=== PATIENT | female | born 1955 | race Caucasian/White ===

== ENCOUNTER 2019-10-01 08:40 | Outpatient (CLI) | payer MEDICAID, SELFPAY ==
--- NOTE | 2019-10-01 08:46 | MM_ITS ---
WS: [id number] SCREENING DIGITAL MAMMOGRAM WITH CAD HISTORY: SCREENING COMPARISON: 07/01/2018 and 02/11/2017 Bilateral CC and MLO views submitted. Computer aided detection analyzed. Breast composition: There are scattered areas of fibroglandular density. No suspicious masses or calc ifications or distortion. MM/[place] [id number] IMPRESSION: BI-RADS: 0-Incomplete: Need additional imaging evaluation FOLLOW UP: Need Additional Imaging Patient indicated there is a palpable abnormality in the upper outer quadrant o f the LEFT breast. Only a screening mammogram has been ordered. Recommend addit ional imaging and possible ultrasound LEFT breast. Palpable mass needs to be fu rther evaluated.
== END 2019-10-01 08:41 | disposition home or self-care (01) ==
LOC: RADSHAW 08:43
PROVIDERS: Family Provider Internal Medicine; PCP Internal Medicine; Visit Provider Internal Medicine
DX: Z12.31 Encounter for screening mammogram for malignant neoplasm of breast (principal)
CPT/HCPCS: 77067

== ENCOUNTER 2019-10-21 09:40 | Outpatient (CLI) | payer MEDICAID, SELFPAY ==
--- NOTE | 2019-10-21 09:45 | US_ITS ---
WS: [id number] ADDITIONAL VIEWS LEFT MAMMOGRAM LEFT BREAST ULTRASOUND HISTORY: ABNORMAL MAMMOGRAM LT BREAST, palpable abnormality upper outer quadrant LEFT breast. COMPARISON: 10/01/2019 screening mammogram LEFT MAMMOGRAM: Spot compression views and true ML. Triangular marker is placed over the upper outer quadrant of the LEFT breast near 1-2 o'clock. This c orresponds to the palpable abnormality that was previously described. No underlying mass or distortio n identified. Ultrasound to follow. LEFT BREAST ULTRASOUND 2-D and color Doppler imaging submitted. Ultrasound directed to the palpable area at 2:00, 3 cm from the nipple. There is a hyperechoic nodule measuring 1.2 x 0.5 x 0.9 cm. There is an additional smaller hyperechoic nodule in the same region m easuring 1.0 x 0.7 x 1.0 cm. No increased vascularity. Ovoid in shape and most consistent with benign lipomas. IMPRESSION: Hyperechoic nodules at 2:00 are very benign in appearance. Probably representing lipomas due to their ultrasound characteristics. Clinically if these are of concern surgical removal or biopsy can be per formed. US/US breast LT limited* [id number] BI-RADS: 2-Benign FOLLOW UP: 1 Year Follow-up
== END 2019-10-21 09:41 | disposition home or self-care (01) ==
LOC: RADSHAW 09:42
PROVIDERS: Family Provider Internal Medicine; PCP Internal Medicine; Visit Provider Internal Medicine
DX: R92.8 Other abnormal and inconclusive findings on diagnostic imaging of breast (principal); N63.21 Unspecified lump in the left breast, upper outer quadrant
CPT/HCPCS: 76642; 77065

== ENCOUNTER 2020-01-20 14:11 | Outpatient (CLI) | payer MEDICAID, SELFPAY ==
--- NOTE | 2020-01-20 14:23 | CT_ITS ---
WS: [id number] CT CHEST WITH INTRAVENOUS CONTRAST HISTORY: COPD, NICOTINE DEPENDENCE, NICOTINE INDUCED DISORDERS TECHNIQUE: Contiguous 5 mm axial imaging performed on the thorax. Coronal and sagittal reformats are submitted. All CT scans at [facility] use at least one of these dose optimization techniq ues: automated exposure control; mA and/or kV adjustment per patient size (includes targeted exams wh ere dose is matched to clinical indication); or iterative reconstruction. CONTRAST: Omnipaque 300; 95 mL IV. DLP: 1016.04 mGycm COMPARISON: 12/12/2016 Lungs and central airway: Noncalcified and well marginated nodule measuring 7.8 mm in the RIGHT upper lobe. This nodule has very slightly increased in size since 2007 obtained. No additional nodules. Mi ld hyperinflation and changes of emphysema. No pneumonia. Pleura: Normal. No pleural effusion. Heart and pericardium: Normal size heart. There is a small pericardial effusion which is similar to t he prior study. Mediastinum and tiffany: No mediastinum or hilar adenopathy. Vessels: Mild atherosclerosis aorta. Pulmonary artery size is normal. Chest wall and lower neck: No soft tissue masses. Upper abdomen: Ill-defined hypodense nodule in the superior RIGHT lobe of the liver liver measures 2. 1 cm. Additional peripherally enhancing hypodensity measuring 2.0 cm in the posterior RIGHT lobe. The se have been present on multiple prior studies and probably hemangiomas. The remaining visualized marily er is normal. The entire liver is not imaged. Prior cholecystectomy. Osseous structures: No destructive process. CT/CT chest w con* [id number] IMPRESSION: 1. Minimal enlargement of the benign-appearing nodule RIGHT upper lobe. 2. Chronic emphysema. 3. No adenopathy. 4. Small pericardial effusion. 5. Hepatic hemangiomas, stable.
[2020-01-20 14:43] LABS: Blood Urea Nitrogen 14 mg/dL (8-23); Glomerular Filtration Rate 72.4 mL/min (90-130)
[2020-01-20] MEDS: iohexol 300 mg/mL 100 mL Btl IV (14:54)
== END 2020-01-20 14:12 | disposition home or self-care (01) ==
LOC: RADWPI 14:13
PROVIDERS: Family Provider Internal Medicine; PCP Internal Medicine; Visit Provider Internal Medicine
DX: J44.9 Chronic obstructive pulmonary disease, unspecified (principal); F17.218 Nicotine dependence, cigarettes, with other nicotine-induced disorders; R91.1 Solitary pulmonary nodule; I31.3 Pericardial effusion (noninflammatory); D18.09 Hemangioma of other sites
CPT/HCPCS: 71260; 82565; 84520; Q9967

== ENCOUNTER 2020-02-11 14:03 | Outpatient (CLI) | payer MEDICAID, SELFPAY ==
--- NOTE | 2020-02-11 14:09 | US_ITS ---
WS: [id number] ULTRASOUND SOFT TISSUES posterior RIGHT occipital region. HISTORY: LYMPHADENOPATHY COMPARISON: None available. TECHNIQUE: 2-D and color Doppler imaging is submitted. Patient directed ultrasound to the palpable nodule over the posterior scalp. There is a hyperechoic n odule in the soft tissue measuring 6mm. No increased vascularity. US/US soft tissue head neck [id number] IMPRESSION: Small scalp lipoma measuring 6 mm corresponds to the palpable abnormality.
== END 2020-02-11 14:04 | disposition home or self-care (01) ==
LOC: RAD 14:06
PROVIDERS: PCP Internal Medicine; Visit Provider Internal Medicine
DX: R59.1 Generalized enlarged lymph nodes (principal); D17.0 Benign lipomatous neoplasm of skin and subcutaneous tissue of head, face and neck
CPT/HCPCS: 76536

== ENCOUNTER 2020-08-15 10:50 | Outpatient (CLI) | payer MEDICAID, SELFPAY ==
--- NOTE | 2020-08-15 10:54 | CT_ITS ---
WS: [id number] CT scan of the chest with IV contrast, additional two-dimensional coronal and sagittal reconstruction was performed. 08/15/2020 Clinical Data: PULMONARY NODULE Comparison: CT chest, 01/20/2020. DLP: 942.[address] scans at [facility] use at least one of these dose optimization techniques: automat ed exposure control; mA and/or kV adjustment per patient size (includes targeted exams where dose is matched to clinical indication); or iterative reconstruction. Findings: The right lung nodule has increased slightly in size to 0.9 cm. It is seen best on axial image 24 of 57. No other nodules are seen. There are no lung masses. No effusions are present. The heart size is normal with no pericardial effusion. The trachea bifurcates normally into the bronchi. The pulmonary arterial system and thoracic aorta demonstrate no abnormalities or dilatations. There is no axillary or significant mediastinal adenopathy. There is a small hiatal hernia. The upper abdomen demonstrates a low density lesion at the dome of the liver but this is not changed in size. The possible hemangioma in the posterior aspect of the right lobe the liver again is seen. CT/CT chest w con* [id number] Impression: 1. Minimal enlargement of probable benign nodule in right upper lobe and recomm end follow-up CT chest in 6 months. 2. No change in probable hemangiomas of right lobe of the liver.
[2020-08-15 11:41] LABS: Blood Urea Nitrogen 11 mg/dL (8-23); Glomerular Filtration Rate 124.6 mL/min (90-130)
[2020-08-15] MEDS: iohexol 300 mg/mL 100 mL Btl IV (11:47)
== END 2020-08-15 10:51 | disposition home or self-care (01) ==
LOC: RADWPI 10:54
PROVIDERS: PCP Internal Medicine; Visit Provider Internal Medicine
DX: R91.1 Solitary pulmonary nodule (principal)
CPT/HCPCS: 71260; 82565; 84520; Q9967

== ENCOUNTER → 2020-09-15 08:35 | Outpatient (BNVA) | payer MEDICAID, SELFPAY | PROVIDERS: PCP Internal Medicine; Visit Provider Internal Medicine | DX: Z11.59 Encounter for screening for other viral diseases (principal) | CPT/HCPCS: 87635 ==

== ENCOUNTER 2020-09-21 09:15 | Outpatient (CLI) | payer MEDICAID, SELFPAY ==
--- NOTE | 2020-09-21 15:00 | PFTS_ITS ---
Date of Study:09/21/20 Date of Dictation: 09/28/20 MECHANICS: Forced vital capacity (FVC) is reduced . Forced expiratory volume in one second (FEV1) is reduced .. FEV1/FVC is Normal . There is significant response to bronchodilators. FLOW VOLUME LOOP: Normal . LUNG VOLUMES: Not measured DIFFUSING CAPACITY FOR CARBON MONOXIDE:not measured . INTERPRETATION: The Spirometry consistent with restrictive pattern with significant response to bronchodilators. Lung volumes were not measured. Please correlate clinically. MTDD
== END 2020-09-21 09:16 | disposition home or self-care (01) ==
PROVIDERS: PCP Internal Medicine; Visit Provider Internal Medicine
DX: J44.9 Chronic obstructive pulmonary disease, unspecified (principal)
CPT/HCPCS: 94060; J7611

== ENCOUNTER → 2020-10-07 13:24 | Outpatient (BNVA) | payer MEDICAID, SELFPAY | PROVIDERS: PCP Internal Medicine; Visit Provider Internal Medicine Critical Care Medicine | DX: J96.11 Chronic respiratory failure with hypoxia (principal); Z20.822 Contact with and (suspected) exposure to COVID-19 | CPT/HCPCS: 87635 ==

== ENCOUNTER 2020-10-11 10:33 | Outpatient (CLI) | payer MEDICAID, SELFPAY ==
--- NOTE | 2020-10-11 14:06 | PFTS_ITS ---
Date of Study:10/11/20 Date of Dictation: MECHANICS: Forced vital capacity (FVC) is reduced. Forced expiratory volume in one second (FEV1) is reduced. FEV1/FVC is normal. FLOW VOLUME LOOP: Narrow with scooping. LUNG VOLUMES: Total lung capacity (TLC) is normal. Residual volume (RV) is increased. DIFFUSING CAPACITY FOR CARBON MONOXIDE: Mild reduced. INTERPRETATION: The pulmonary function tests are consistent with nonspecific ventilatory limitation. The postbronchodilator spirometry is consistent with moderate restriction. However, the total lung capacity is normal. This is likely secondary to combination of obstructive and restrictive ventilatory defect. There is evidence of air trapping. Gas exchange (DLCO) is mildly reduced. MTDD
== END 2020-10-11 10:34 | disposition home or self-care (01) ==
LOC: RT 10:34
PROVIDERS: PCP Internal Medicine; Visit Provider Internal Medicine Critical Care Medicine
DX: R06.02 Shortness of breath (principal)
CPT/HCPCS: 94060; 94618; 94726; 94729; J7611

== ENCOUNTER 2020-10-11 11:45 | Outpatient (CLI) | payer MEDICAID, SELFPAY | END 2020-10-11 11:46 | disposition home or self-care (01) | LOC: SLEEP 10-13 09:30 | PROVIDERS: PCP Internal Medicine; Visit Provider Internal Medicine Critical Care Medicine | DX: R06.02 Shortness of breath (principal) | CPT/HCPCS: 94762 ==

== ENCOUNTER 2020-10-11 12:00 | Outpatient (CLI) | payer MEDICAID, SELFPAY | END 2020-10-11 12:01 | disposition home or self-care (01) | LOC: SLEEP 10-13 09:28 | PROVIDERS: PCP Internal Medicine; Visit Provider Internal Medicine Critical Care Medicine | DX: G47.10 Hypersomnia, unspecified (principal) | CPT/HCPCS: G0399 ==

== ENCOUNTER 2020-12-21 11:07 | Outpatient (CLI) | payer MEDICAID, SELFPAY ==
--- NOTE | 2020-12-21 11:47 | CT_ITS ---
WS: [id number] CT CHEST WITH INTRAVENOUS CONTRAST HISTORY: COUGH, NICOTINE DEPENDENCE, COPD, PULMONARY NODULE TECHNIQUE: Contiguous 5 mm axial imaging performed on the thorax. Coronal and sagittal reformats are submitted. All CT scans at [facility] use at least one of these dose optimization techniq ues: automated exposure control; mA and/or kV adjustment per patient size (includes targeted exams wh ere dose is matched to clinical indication); or iterative reconstruction. CONTRAST: Omnipaque 300; 95 mL IV. DLP: 1011.07 mGycm COMPARISON: 08/15/2020 and 01/20/2020 Lungs and central airway: Hyperexpanded lungs with emphysema. Again noted is the solid well-circumscr ibed nodule in the RIGHT upper lobe measuring 8 mm in short axis diameter. This nodule has been prese nt over multiple prior years dating back to at least 04/04/2015 with mild increase in size since that e xam. No additional mass or pneumonia. Pleura: Normal. No pleural effusion. Heart and pericardium: Normal size heart. Small amount of pericardial thickening or fluid. Similar to prior studies. Mediastinum and tiffany: Substernal LEFT thyroid goiter. No hilar lymph nodes. Vessels: Mild atherosclerosis aorta. There are few coronary artery calcified plaques. Chest wall and lower neck: Substernal LEFT thyroid goiter. Upper abdomen: Cavernous hemangioma again noted in the superior RIGHT lobe of the liver. Additional h emangioma in the posterior RIGHT lobe of the liver. These have been previously described and imaged. No increase in size. Small hiatal hernia. Prior cholecystectomy. No adrenal mass. Splenic granulomata . Osseous structures: No destructive process. CT/CT chest w con* [id number] IMPRESSION: 1. Very slow increase in size of the RIGHT upper lobe pulmonary nodule since 015. Nodule has increased from 5 to 8 mm. Due to long-term stability this is pr obably benign. Very low-grade neoplasm cannot be completely excluded. 2. No adenopathy. 3. Prior cholecystectomy. 4. LEFT substernal goiter. 5. Stable RIGHT hepatic cavernous hemangiomas.
== END 2020-12-21 11:08 | disposition home or self-care (01) ==
LOC: RADWPI 11:11
PROVIDERS: PCP Internal Medicine; Visit Provider Internal Medicine
DX: R05 Cough (principal); F17.218 Nicotine dependence, cigarettes, with other nicotine-induced disorders; J44.9 Chronic obstructive pulmonary disease, unspecified; R91.1 Solitary pulmonary nodule; D18.09 Hemangioma of other sites; Z90.49 Acquired absence of other specified parts of digestive tract
CPT/HCPCS: 71260; Q9967

== ENCOUNTER 2020-12-24 15:35 | Emergency (ER) | payer MEDICAID, SELFPAY ==
[2020-12-24 16:06] VITALS: BP 146/85; PULSE 89; RESP 16; TEMP 36.8; O2SAT 93; BMI 40.2
--- NOTE | 2020-12-24 16:29 | XRR_ITS ---
PROCEDURE INFORMATION: Exam: XR Chest Exam date and time: 12/24/2020 4:38 PM Age: 65 years old Clinical indication: Dyspnea TECHNIQUE: Imaging protocol: XR of the chest. Views: 1 view. COMPARISON: CT chest w con* [id number] 12/21/2020 12:03 PM FINDINGS: Lungs: The lungs are mildly underinflated. Pleural spaces: Unremarkable. No pleural effusion. No pneumothorax. Heart/Mediastinum: Cardiac shadow is at the upper limit of normal for size. Bones/joints: No acute abnormality. XR/XR chest 1V portable [id number] IMPRESSION: No acute findings.
--- NOTE | 2020-12-24 16:29 | ECG_ITS ---
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[id number] Requested By: Mao Johnson Order Number: [id number] Reading MD: NICOLE VO Measurements Intervals Staley Rate: 84 P: 55 MD: 179 QRS: 122 QRSD: 86 T: 64 QT: 375 QTc: 446 Interpretive Statements SINUS RHYTHM PATTERN CONSISTENT WITH PULMONARY DISEASE POSSIBLE RIGHT VENTRICULAR HYPERTROPHY [SOME/ALL OF: PROMINENT R IN V1, LATE TRANSITION, RAD, BETSY, SSS] INTERPRETATION BASED ON A DEFAULT AGE OF 40 YEARS Compared to ECG 03/29/2016 18:05:51 Atrial abnormality now present Electronically Signed On 12-24-2020 19:18:24 CDT by NICOLE VO [id number]
[2020-12-24 16:55] VITALS: BP 127/98; PULSE 82; RESP 14; O2SAT 95
[2020-12-24] MEDS: sodium chloride 0.9% 500 ML 999 ML IV (16:56)
[2020-12-24 17:00] LABS: Basophils # 0.1 10^3/uL (0.0-0.1); Basophils % 0.4 %; Eosinophils # 0.2 10^3/uL (0.0-0.8); Eosinophils % 1.9 %; Hematocrit 45.2 % (37.0-47.0); Hemoglobin 14.4 g/dL (11.5-15.3); Lymphocytes # 3.5 10^3/uL (0.8-4.8); Lymphocytes % 29.6 %; Mean Corpuscular HGB Conc 31.9 g/dL (30.0-36.0); Mean Corpuscular Hemoglobin 28.7 pg (28.0-34.0); Mean Platelet Volume 12.6 fL (7.4-10.4); Monocytes # 0.7 10^3/uL (0.2-0.9); Monocytes % 5.6 %; Neutrophils % 62.2 %; Nucleated Red Blood Cells % 0 %; Platelet Count 120 10^3/cmm (130-400); Red Blood Count 5.02 10^6/uL (4.1-5.3); Red Cell Distribution Width 14.5 % (12.1-15.1); White Blood Count 11.8 10^3/uL (4.0-10.0)
--- NOTE | 2020-12-24 17:04 | W.ED.CHESTPA ---
Documented by User: Mao Underwood DO 12/26/20 10:46 HPI - Chest Pain General: Chief Complaint: Chest Pain Stated Complaint: cp, arm pain Time Seen by Provider: 12/24/20 16:29 History of Present Illness: HPI narrative: 65-year-old female comes in complaining of right hand pain pain radiating down the arm into the fourth and fifth fingers radiates all the way up through the shoulder into the neck. She no history of trauma no history of previous injury or cervical disc disease or previous surgeries. The arm discomfort has been present for years and worsening the chest discomfort is new today. Sudden onset while she was getting groceries. Cannot really get her to identify if there is anything that exacerbates or relieves it she said it just comes and goes is accompanied by some mild shortness of breath. MD complaint: chest heaviness Onset (ago): hour(s) Timing of current episode: episodic Onset: during rest Pain location: left chest Pain radiation: none Quality: heaviness Relieving factors: nothing Exacerbating factors: nothing Associated symptoms: Deny abdominal pain, dyspnea, fever(s), nausea or vomiting Treatment prior to arrival: none Review of Systems Const: Denies: fever(s), chills, body aches, change in appetite, fatigue or malaise ENMT: Denies: throat pain, ear or mastoid pain, nasal discharge or nasal congestion Card: Denies: chest pain, edema, dyspnea on exertion or orthopnea Resp: Denies: dyspnea, productive cough or non-productive cough GI: Denies: abdominal pain, nausea, vomiting, hematemesis, coffee ground emesis, diarrhea, constipation, bloating, hematochezia or melena : Denies: flank pain, difficulty voiding, dysuria, urinary frequency or urinary urgency Skin/Breast: Denies: rash or pruritus PFSH ED PFSH: Medical History Hyperlipidemia Hypothyroidism Tobacco abuse Surgical History S/P cholecystectomy S/P hysterectomy Family History Sister Cancer LUNG Mother , AGE78 Diabetes Other CAD (coronary artery disease) Social History (Reviewed 12/26/20 @ 10:46 by MATTHEW Li Smoking and tobacco status: current every day smoker cigarettes Packs smoked per day: 1.0 Years cigarettes smoked: 30 Quit status (tobacco): considering quitting Second hand smoke exposure: Yes Smoking risk assessment/counseling performed?: Yes Alcohol intake: never Counseling given: No Counseling given: No Lives independently: Yes Household members: family Marital status: / service: No Current occupational status: disabled Pets and animals: Yes History of recent travel: No Current gender identity: Female Physical Exam Const: COMMON NORMALS: no acute distress GENERAL APPEARANCE: cooperative and comfortable ORIENTATION/CONSCIOUSNESS: Yes awake, Yes oriented to person, Yes oriented to place and Yes oriented to time HENMT: COMMON NORMALS: normocephalic, atraumatic, hearing grossly normal bilaterally, external ears normal, EAC's normal, TM's normal bilaterally, Normal nasal mucous membranes and turbinates present, moist oral mucous membranes and oropharynx normal HEAD & SCALP: normocephalic and atraumatic NOSE: Normal nasal mucous membranes and turbinates present EXTERNAL EAR: Yes external ears normal EXTERNAL AUDITORY CANAL: EAC's normal TYMPANIC MEMBRANE: TM's normal bilaterally Eye: COMMON NORMALS: Equal, round and reactive pupils present, EOMs intact bilaterally, conjunctivae normal and no scleral icterus CONJUNCTIVA: Yes conjunctivae normal PUPIL: Yes Equal, round and reactive pupils present Neck/C-Spine: COMMON NORMALS: full ROM, no lymphadenopathy, supple and no JVD Lymph: LYMPHATIC: no lymphadenopathy noted and no lymphedema noted Resp: COMMON NORMALS: normal respiratory effort, No retractions, No use of accessory muscles and clear to auscultation bilaterally AUSCULTATION: clear to auscultation bilaterally Cardio: COMMON NORMALS: no JVD, regular rate, regular rhythm and No murmurs present (Cardio) RATE: regular rate RHYTHM: regular rhythm GI: COMMON NORMALS: Soft to palpation and No hepatosplenomegaly present AUSCULTATION: Yes normoactive bowel sounds PALPATION: Yes Soft to palpation, No Tenderness to palpation present (GI), No Guarding due to palpation present (GI) and Yes No hepatosplenomegaly present Extremity: COMMON NORMALS: normal to inspection, capillary refill normal, no clubbing, cyanosis or edema, no calf tenderness and no pedal edema Neuro: SENSORIUM/ORIENTATION: Yes oriented to person, Yes oriented to place and Yes oriented to time Skin: COMMON NORMALS: no rashes or lesions noted GENERAL SKIN EXAM: no rashes or lesions noted Course Vital Signs: Vital signs: Vital Signs Temperature 98.3 F 12/24/20 16:06 Pulse Rate 69 12/24/20 19:22 Respiratory Rate 18 12/24/20 19:22 Blood Pressure 120/66 12/24/20 19:22 Pulse Oximetry 94 12/24/20 19:22 MDM - Chest Pain MDM Narrative: Medical decision making narrative: Turned over to Dr. De La Paz at change of shift see his note for final diagnosis and disposition Lab Data: Labs: Lab Results 12/24/20 12/24/20 12/24/20 Range/Units 16:30 16:30 16:30 WBC 11.8 H (4.0-10.0) 10^3/ uL RBC 5.02 (4.1-5.3) 10^6/u L Hgb 14.4 (11.5-15.3) g/dL Hct 45.2 (37.0-47.0) % MCV 90.0 (81-99) fL MCH 28.7 (28.0-34.0) pg MCHC 31.9 (30.0-36.0) g/dL RDW 14.5 (12.1-15.1) % Plt Count 120 L (130-400) 10^3/c mm MPV 12.6 H (7.4-10.4) fL Neut % (Auto) 62.2 % Lymph % (Auto) 29.6 % [place] % (Auto) 5.6 % Eos % (Auto) 1.9 % Baso % (Auto) 0.4 % Neut # (Auto) 7.30 (1.8-7.7) 10^3/u L Lymph # (Auto) 3.5 (0.8-4.8) 10^3/u L [place] # (Auto) 0.7 (0.2-0.9) 10^3/u L Eos # (Auto) 0.2 (0.0-0.8) 10^3/u L Baso # (Auto) 0.1 (0.0-0.1) 10^3/u L Nucleated RBC % (a uto) 0 % Nucleated RBCs # 0.0 /100WBC Sodium 141 (136-145) mmol/L Potassium 3.9 (3.5-5.1) mmol/L Chloride 103 (98-107) mmol/L Carbon Dioxide 26 (22-29) mmol/L Anion Gap 15.9 (5-19) BUN 14 (8-23) mg/dL Creatinine 0.7 (0.5-0.9) mg/dL GFR Calculation 84.2 L (90-130) mL/min Glucose 83 (65-115) mg/dL Calculated Osmolal ity 292 (285-295) mOsm/k g Calcium 9.9 (8.5-10.5) mg/dL Total Bilirubin 0.4 (0.15-1.2) mg/dL AST 14 (0-32) U/L ALT 16 (0-33) U/L Alkaline Phosphata se 96 (35-105) IU/L Troponin T Baselin e 6 (0-10) ng/L Troponin T 120 Min [place] (0-10) ng/L Delta Troponin T (0-10) ABS# Total Protein 6.7 (6.6-8.7) g/dL Albumin 4.5 (3.5-5.2) g/dL Globulin 2.2 (1.3-4.6) g/dL 12/24/20 Range/Units 18:02 WBC (4.0-10.0) 10^3/ uL RBC (4.1-5.3) 10^6/u L Hgb (11.5-15.3) g/dL Hct (37.0-47.0) % MCV (81-99) fL MCH (28.0-34.0) pg MCHC (30.0-36.0) g/dL RDW (12.1-15.1) % Plt Count (130-400) 10^3/c mm MPV (7.4-10.4) fL Neut % (Auto) % Lymph % (Auto) % [place] % (Auto) % Eos % (Auto) % Baso % (Auto) % Neut # (Auto) (1.8-7.7) 10^3/u L Lymph # (Auto) (0.8-4.8) 10^3/u L [place] # (Auto) (0.2-0.9) 10^3/u L Eos # (Auto) (0.0-0.8) 10^3/u L Baso # (Auto) (0.0-0.1) 10^3/u L Nucleated RBC % (a uto) % Nucleated RBCs # /100WBC Sodium (136-145) mmol/L Potassium (3.5-5.1) mmol/L Chloride (98-107) mmol/L Carbon Dioxide (22-29) mmol/L Anion Gap (5-19) BUN (8-23) mg/dL Creatinine (0.5-0.9) mg/dL GFR Calculation (90-130) mL/min Glucose (65-115) mg/dL Calculated Osmolal ity (285-295) mOsm/k g Calcium (8.5-10.5) mg/dL Total Bilirubin (0.15-1.2) mg/dL AST (0-32) U/L ALT (0-33) U/L Alkaline Phosphata se (35-105) IU/L Troponin T Baselin e (0-10) ng/L Troponin T 120 Min [place] 6.30 (0-10) ng/L Delta Troponin T 0.30 (0-10) ABS# Total Protein (6.6-8.7) g/dL Albumin (3.5-5.2) g/dL Globulin (1.3-4.6) g/dL Discharge Plan Discharge Patient Disposition: Home Clinical Impression: Radiculitis of right cervical region Chest pain Qualifiers: Chest pain type: unspecified Qualified Code(s): R07.9 - Chest pain, unspecified Condition: Stable Prescriptions: New Medrol (Preston) 4 mg tablets,dose pack See Rx Instructions .ROUTE .COMPLEX Qty: 21 RF: 0 No Action gabapentin 300 mg capsule 300 mg PO TID RF: 0 ergocalciferol (vitamin D2) [Vitamin D2] 1,250 mcg (50,000 unit) capsule 1,250 mcg PO DAILY RF: 0 elderberry fruit 200 mg capsule PO DAILY RF: 0 budesonide-formoterol [Symbicort] 80-4.5 mcg/actuation HFA aerosol inhaler 2 puff inhalation BID RF: 0 Spiriva with HandiHaler 18 mcg capsule, w/inhalation device 1 cap inhalation DAILY RF: 0 albuterol sulfate [ProAir HFA] 90 mcg/actuation HFA aerosol inhaler 2 puff INHALATION Q6H PRNRF: 0 levothyroxine 50 mcg tablet 50 mcg PO DAILY RF: 0 nitroglycerin [Nitrostat] 0.4 mg tablet, sublingual 0.4 mg SUBLINGUAL Q5M PRNRF: 0 aspirin [Aspir-81] 81 mg tablet,delayed release (DR/EC) 81 mg PO DAILY RF: 0 rosuvastatin 10 mg tablet 10 mg PO DAILY RF: 0 bupropion HCl 150 mg tablet sustained-release 12 hr 150 mg PO DAILY RF: 0 mecobalamin (vitamin B12) 5,000 mcg tablet,disintegrating 5,000 mcg PO DAILY RF: 0 omega-3 fatty acids [Fish Oil Concentrate] 1,000 mg capsule 1,000 mg PO DAILY RF: 0 fluticasone propionate [Flonase Allergy Relief] 50 mcg/actuation spray,suspension 1 spray intranasal Q12H 30 Days Qty: 15.8 RF: 3 Discharge Orders: Discharge ED (Routine); Ordered 12/24/20 Ordered By: Salvador De La Paz Referrals: Faby Kumar MD [Primary Care Provider] - 4-7 days Discharge Diet: Advance as tolerated Discharge Activity: Increase activity as tolerated Patient Instructions: Chest Pain (ED), Cervical Radiculopathy (ED) Activity Restrictions/Additional Instructions: Return for worsening chest pain, shortness of breath, syncope or passing out, other concerning symptoms. See your doctor next week, as further outpatient testing may be needed. Medication as directed. Coding Level of Care Code ED Storage Engineer for Chg Fwd Documented by User: Salvador De La Paz DO 12/24/20 22:19 HPI - Chest Pain General: Chief Complaint: Chest Pain Stated Complaint: cp, arm pain Time Seen by Provider: 12/24/20 16:29 PFSH ED PFSH: Medical History Hyperlipidemia Hypothyroidism Tobacco abuse Surgical History S/P cholecystectomy S/P hysterectomy Family History Sister Cancer LUNG Mother , AGE78 Diabetes Other CAD (coronary artery disease) Social History Smoking and tobacco status: current every day smoker cigarettes Packs smoked per day: 1.0 Years cigarettes smoked: 30 Quit status (tobacco): considering quitting Second hand smoke exposure: Yes Smoking risk assessment/counseling performed?: Yes Alcohol intake: never Counseling given: No Counseling given: No Lives independently: Yes Household members: family Marital status: / service: No Current occupational status: disabled Pets and animals: Yes History of recent travel: No Current gender identity: Female Course Vital Signs: Vital signs: Vital Signs Temperature 98.3 F 12/24/20 16:06 Pulse Rate 69 12/24/20 19:22 Respiratory Rate 18 12/24/20 19:22 Blood Pressure 120/66 12/24/20 19:22 Pulse Oximetry 94 12/24/20 19:22 MDM - Chest Pain MDM Narrative: Medical decision making narrative: 65-year-old lady checked out to me at shift change by Dr. Underwood. She has had intermittent chest pain. She is also had pain that radiates to her right fourth and fifth digit and ulnar nerve pattern. She states her wrist is somewhat painful as well as her hand. She denies any significant neck pain, but notes she has had pain in the past. Her EKG showed a sinus rhythm with no acute ST changes. Her troponin did not elevate. Is a mild elevation of her white blood cell count. Other labs are benign. Her hand x-ray is negative. Chest x-ray is negative. She will be treated for cervical radiculitis. She was treated with a GI cocktail which seemed to help her symptoms to some degree as well. Lab Data: Labs: Lab Results 12/24/20 12/24/20 12/24/20 Range/Units 16:30 16:30 16:30 WBC 11.8 H (4.0-10.0) 10^3/ uL RBC 5.02 (4.1-5.3) 10^6/u L Hgb 14.4 (11.5-15.3) g/dL Hct 45.2 (37.0-47.0) % MCV 90.0 (81-99) fL MCH 28.7 (28.0-34.0) pg MCHC 31.9 (30.0-36.0) g/dL RDW 14.5 (12.1-15.1) % Plt Count 120 L (130-400) 10^3/c mm MPV 12.6 H (7.4-10.4) fL Neut % (Auto) 62.2 % Lymph % (Auto) 29.6 % [place] % (Auto) 5.6 % Eos % (Auto) 1.9 % Baso % (Auto) 0.4 % Neut # (Auto) 7.30 (1.8-7.7) 10^3/u L Lymph # (Auto) 3.5 (0.8-4.8) 10^3/u L [place] # (Auto) 0.7 (0.2-0.9) 10^3/u L Eos # (Auto) 0.2 (0.0-0.8) 10^3/u L Baso # (Auto) 0.1 (0.0-0.1) 10^3/u L Nucleated RBC % (a uto) 0 % Nucleated RBCs # 0.0 /100WBC Sodium 141 (136-145) mmol/L Potassium 3.9 (3.5-5.1) mmol/L Chloride 103 (98-107) mmol/L Carbon Dioxide 26 (22-29) mmol/L Anion Gap 15.9 (5-19) BUN 14 (8-23) mg/dL Creatinine 0.7 (0.5-0.9) mg/dL GFR Calculation 84.2 L (90-130) mL/min Glucose 83 (65-115) mg/dL Calculated Osmolal ity 292 (285-295) mOsm/k g Calcium 9.9 (8.5-10.5) mg/dL Total Bilirubin 0.4 (0.15-1.2) mg/dL AST 14 (0-32) U/L ALT 16 (0-33) U/L Alkaline Phosphata se 96 (35-105) IU/L Troponin T Baselin e 6 (0-10) ng/L Troponin T 120 Min [place] (0-10) ng/L Delta Troponin T (0-10) ABS# Total Protein 6.7 (6.6-8.7) g/dL Albumin 4.5 (3.5-5.2) g/dL Globulin 2.2 (1.3-4.6) g/dL 04/ Range/Units 18:02 WBC (4.0-10.0) 10^3/ uL RBC (4.1-5.3) 10^6/u L Hgb (11.5-15.3) g/dL Hct (37.0-47.0) % MCV (81-99) fL MCH (28.0-34.0) pg MCHC (30.0-36.0) g/dL RDW (12.1-15.1) % Plt Count (130-400) 10^3/c mm MPV (7.4-10.4) fL Neut % (Auto) % Lymph % (Auto) % [place] % (Auto) % Eos % (Auto) % Baso % (Auto) % Neut # (Auto) (1.8-7.7) 10^3/u L Lymph # (Auto) (0.8-4.8) 10^3/u L [place] # (Auto) (0.2-0.9) 10^3/u L Eos # (Auto) (0.0-0.8) 10^3/u L Baso # (Auto) (0.0-0.1) 10^3/u L Nucleated RBC % (a uto) % Nucleated RBCs # /100WBC Sodium (136-145) mmol/L Potassium (3.5-5.1) mmol/L Chloride (98-107) mmol/L Carbon Dioxide (22-29) mmol/L Anion Gap (5-19) BUN (8-23) mg/dL Creatinine (0.5-0.9) mg/dL GFR Calculation (90-130) mL/min Glucose (65-115) mg/dL Calculated Osmolal ity (285-295) mOsm/k g Calcium (8.5-10.5) mg/dL Total Bilirubin (0.15-1.2) mg/dL AST (0-32) U/L ALT (0-33) U/L Alkaline Phosphata se (35-105) IU/L Troponin T Baselin e (0-10) ng/L Troponin T 120 Min [place] 6.30 (0-10) ng/L Delta Troponin T 0.30 (0-10) ABS# Total Protein (6.6-8.7) g/dL Albumin (3.5-5.2) g/dL Globulin (1.3-4.6) g/dL Discharge Plan Discharge Patient Disposition: Home Clinical Impression: Radiculitis of right cervical region Chest pain Qualifiers: Chest pain type: unspecified Qualified Code(s): R07.9 - Chest pain, unspecified Condition: Stable Prescriptions: New Medrol ([place]rest[place]) 4 mg tablets,dose pack See Rx Instructions .ROUTE .COMPLEX Qty: 21 RF: 0 No Action gabapentin 300 mg capsule 300 mg PO TID RF: 0 ergocalciferol (vitamin D2) [Vitamin D2] 1,250 mcg (50,000 unit) capsule 1,250 mcg PO DAILY RF: 0 elderberry fruit 200 mg capsule PO DAILY RF: 0 budesonide-formoterol [Symbicort] 80-4.5 mcg/actuation HFA aerosol inhaler 2 puff inhalation BID RF: 0 Spiriva with HandiHaler 18 mcg capsule, w/inhalation device 1 cap inhalation DAILY RF: 0 albuterol sulfate [ProAir HFA] 90 mcg/actuation HFA aerosol inhaler 2 puff INHALATION Q6H PRNRF: 0 levothyroxine 50 mcg tablet 50 mcg PO DAILY RF: 0 nitroglycerin [Nitrostat] 0.4 mg tablet, sublingual 0.4 mg SUBLINGUAL Q5M PRNRF: 0 aspirin [Aspir-81] 81 mg tablet,delayed release (DR/EC) 81 mg PO DAILY RF: 0 rosuvastatin 10 mg tablet 10 mg PO DAILY RF: 0 bupropion HCl 150 mg tablet sustained-release 12 hr 150 mg PO DAILY RF: 0 mecobalamin (vitamin B12) 5,000 mcg tablet,disintegrating 5,000 mcg PO DAILY RF: 0 omega-3 fatty acids [Fish Oil Concentrate] 1,000 mg capsule 1,000 mg PO DAILY RF: 0 fluticasone propionate [Flonase Allergy Relief] 50 mcg/actuation spray,suspension 1 spray intranasal Q12H 30 Days Qty: 15.8 RF: 3 Discharge Orders: Discharge ED (Routine); Ordered 12/24/20 Ordered By: Salvador De La Paz Referrals: Faby Kumar MD [Primary Care Provider] - 4-7 days Discharge Diet: Advance as tolerated Discharge Activity: Increase activity as tolerated Patient Instructions: Chest Pain (ED), Cervical Radiculopathy (ED) Activity Restrictions/Additional Instructions: Return for worsening chest pain, shortness of breath, syncope or passing out, other concerning symptoms. See your doctor next week, as further outpatient testing may be needed. Medication as directed. Coding Level of Care Code ED Storage Engineer for Monik Lopez
--- NOTE | 2020-12-24 17:06 | XRR_ITS ---
PROCEDURE INFORMATION: Exam: XR Right Hand Exam date and time: 12/24/2020 5:23 PM Age: 65 years old Clinical indication: Finger(s); Right; Patient HX: Pain in RT 4th digit TECHNIQUE: Imaging protocol: XR Right hand. Views: 3 or more views. COMPARISON: No relevant prior studies available. FINDINGS: Bones/joints: Normal. Soft tissues: Normal. XR/XR hand RT min 3V* [id number] IMPRESSION: No acute findings.
[2020-12-24 17:22] LABS: Alanine Aminotransferase 16 U/L (0-33); Albumin Level 4.5 g/dL (3.5-5.2); Alkaline Phosphatase 96 IU/L (35-105); Aspartate Amino Transferase 14 U/L (0-32); Blood Urea Nitrogen 14 mg/dL (8-23); Calcium 9.9 mg/dL (8.5-10.5); Carbon Dioxide 26 mmol/L (22-29); Chloride 103 mmol/L (98-107); Globulin 2.2 g/dL (1.3-4.6); Glomerular Filtration Rate 84.2 mL/min (90-130); Glucose 83 mg/dL (65-115); Osmolality Calculated 292 mOsm/kg (285-295); Sodium 141 mmol/L (136-145); Total Bilirubin 0.4 mg/dL (0.15-1.2); Total Protein 6.7 g/dL (6.6-8.7)
[2020-12-24 17:23] LABS: Troponin(5th) Baseline 6 ng/L (0-10)
[2020-12-24 17:28] LABS: Anion Gap 15.9 (5-19)
[2020-12-24 17:29] LABS: Potassium 3.9 mmol/L (3.5-5.1)
[2020-12-24 17:46] VITALS: RESP 16
[2020-12-24] MEDS: morphine 4 mg/mL SDV 1 mL IVP (17:46)
--- NOTE | 2020-12-24 18:29 | ECG_ITS ---
[facility] Test Date: 2020-12-24 Pat Name: Anson Cheney Department: Room: Gender: Female Portable Track Line Marker: : 1955 Requested By: Mao Johnson Order Number: [id number] Reading MD: NICOLE VO Measurements Intervals [place] Rate: 73 P: 56 NH: 193 QRS: 101 QRSD: 87 T: 61 QT: 401 QTc: 444 Interpretive Statements SINUS RHYTHM RIGHT AXIS DEVIATION [QRS AXIS > 100] LOW QRS VOLTAGE IN PRECORDIAL LEADS [QRS DEFLECTION < 1.0 mV IN CHEST LEADS] Compared to ECG 12/24/2020 16:16:39 Right-axis deviation now present Low QRS voltage now present Atrial abnormality no longer present Electronically Signed On 12-24-2020 19:19:24 CDT by NICOLE VO [id number]
[2020-12-24] MEDS: ondansetron 2 mg/ML SDV 2 mL 4 MG IVP (18:43)
[2020-12-24] MEDS: lidocaine 2% viscous 15 ML, aluminum-mag hydrox-simethicon 30 ML, sucralfate oral liq 1 GM PO (18:44)
[2020-12-24 19:04] VITALS: BP 120/65; PULSE 76; RESP 16; O2SAT 93
[2020-12-24 19:22] VITALS: BP 120/66; PULSE 69; RESP 18; O2SAT 94
== END 2020-12-24 19:36 | disposition home or self-care (01) ==
PROVIDERS: Family Medicine; Emergency Provider Emergency Medicine; PCP Internal Medicine
DX: R07.9 Chest pain, unspecified (principal); M54.12 Radiculopathy, cervical region; Z79.82 Long term (current) use of aspirin; E78.5 Hyperlipidemia, unspecified; F17.210 Nicotine dependence, cigarettes, uncomplicated
CPT/HCPCS: 71045; 73130; 80053; 84484; 85025; 93005; 96374; 96375; 99284; J2270; J2405; J7040

== ENCOUNTER → 2021-01-24 09:21 | Outpatient (BNVA) | payer MEDICAID, SELFPAY | PROVIDERS: PCP Internal Medicine; Visit Provider Specialist | DX: R20.9 Unspecified disturbances of skin sensation (principal); G56.03 Carpal tunnel syndrome, bilateral upper limbs; F17.210 Nicotine dependence, cigarettes, uncomplicated | CPT/HCPCS: 95910 ==

== ENCOUNTER 2021-03-01 05:53 | Outpatient (CLI) | payer MEDICAID, SELFPAY ==
[2021-03-01 06:39] VITALS: BMI 41.0
[2021-03-01 06:42] VITALS: BP 134/103; PULSE 84; RESP 22; TEMP 36.7; O2SAT 90
--- NOTE | 2021-03-01 06:51 | PC.NURSE ---
Pt noted to have SP02 lvl of 84 after walking to restroom. Pt osyxgen on room air came back to 89-90%DR Davies notified and Dr Kumar Called and order still given to give infusion. Pt states that she wears 1.5 liters per n.c. only when she sleeps but since being sick she has had to where oxygen all the time. Called pharmacy and they state any increase to to COVID dis qualifies pt for infusion But drs have stated to give infusion.
[2021-03-01 07:36] VITALS: BP 119/47; PULSE 88; RESP 20; O2SAT 95
[2021-03-01 07:59] VITALS: BP 123/81; PULSE 88; RESP 22; O2SAT 90
[2021-03-01 08:33] VITALS: BP 150/72; PULSE 85; RESP 24; TEMP 37.3; O2SAT 90
== END 2021-03-01 05:54 | disposition home or self-care (01) ==
LOC: ER 05:55
PROVIDERS: PCP Internal Medicine; Visit Provider Internal Medicine
DX: U07.1 COVID-19 (principal)

== ENCOUNTER 2021-04-18 08:53 | Outpatient (CLI) | payer MEDICAID, SELFPAY ==
--- NOTE | 2021-04-18 08:58 | XR_ITS ---
WS: [id number] LUMBAR SPINE TECHNIQUE: 3 views of the lumbar spine CLINICAL INFORMATION: PAIN IN LUMBAR SPINE, FALL COMPARISON: None. FINDINGS: Five vay-zae-ogcymne lumbar vertebral bodies. Mild lumbar curve convex right. Osteopenia. Cholecystec velasquez clips. Disc space narrowing worse at L1-L2, L3-4, L5-S1. No compression fractures. Moderate face t arthropathy L4-L5 and L5-S1. Slight anterolisthesis L4 on L5. Slight retrolisthesis L3 on L4. Aorti c calcification. XR/XR lumbar spine 2-3V* [id number] IMPRESSION: 1. Mild lumbar curve. No acute compression. 2. Disc space narrowing worse at L1-L2, L3-4, L5-S1 3. Moderate facet arthropathy L5-S1.
== END 2021-04-18 08:54 | disposition home or self-care (01) ==
PROVIDERS: PCP Internal Medicine; Visit Provider Internal Medicine
DX: M54.5 Low back pain (principal); W19.XXXA Unspecified fall, initial encounter; M47.817 Spondylosis without myelopathy or radiculopathy, lumbosacral region
CPT/HCPCS: 72100

== ENCOUNTER 2021-05-11 12:58 | Outpatient (CLI) | payer MEDICAID, SELFPAY ==
--- NOTE | 2021-05-11 13:05 | XR_ITS ---
WS: [id number] RIGHT KNEE: 3 VIEW(S) TECHNIQUE: AP, oblique(s) and lateral. HISTORY: PAIN IN RIGHT KNEE COMPARISON: 08/16/2015 No fracture or dislocation. There is very subtle cortical irregularity along the weightbearing surface of the lateral femoral con dyle. Probably related to early developing changes of arthritis and loss of cartilage. No joint effusion. No soft tissue abnormality. XR/XR knee RT 3V* [id number] IMPRESSION: Very minimal cortical surface irregularity lateral weightbearing surface femora l condyle.
== END 2021-05-11 12:59 | disposition home or self-care (01) ==
PROVIDERS: PCP Internal Medicine; Visit Provider Internal Medicine
DX: M25.561 Pain in right knee (principal)
CPT/HCPCS: 73562

== ENCOUNTER 2021-06-08 08:32 | Outpatient (CLI) | payer MEDICAID, SELFPAY ==
--- NOTE | 2021-06-08 08:43 | US_ITS ---
WS: [id number] ABDOMINAL ULTRASOUND REASON FOR EXAM: ABD PAIN RUQ TECHNIQUE: Grayscale and Doppler ultrasound examination of the abdomen. FINDINGS: Pancreas: Not visualized Abdominal aorta and IVC: Normal Liver: Liver measures 17.5 cm in length. Moderately echogenic with no focal lesion. Normal portal kristi ous flow Common bile duct 4.3 mm, within normal limits. Left kidney: Left kidney measures 11.9 cm x 6.1 cm x 6.1 cm. No mass, calculus, or hydronephrosis. No rmal blood flow Right kidney: Right kidney measures 12.9 cm x 4.9 cm x 5.8 cm. No mass, calculus, or hydronephrosis. Normal blood flow Spleen: Normal No ascites. US/US abdomen complete* [id number] IMPRESSION: Most common cause of liver findings are fatty infiltration of the liver. No other significant abnormality.
== END 2021-06-08 08:33 | disposition home or self-care (01) ==
LOC: US 08:34
PROVIDERS: PCP Internal Medicine; Visit Provider Internal Medicine
DX: R10.11 Right upper quadrant pain (principal)
CPT/HCPCS: 76700

== ENCOUNTER → 2021-06-29 15:08 | Outpatient (BNVA) | payer MEDICAID, SELFPAY | PROVIDERS: PCP Internal Medicine; Referring Provider Internal Medicine; Visit Provider Orthopaedic Surgery | DX: M54.2 Cervicalgia (principal) | CPT/HCPCS: 72050 ==

== ENCOUNTER 2021-07-24 10:22 | Outpatient (CLI) | payer MEDICAID, SELFPAY ==
--- NOTE | 2021-07-24 | CT_ITS ---
WS: [id number] CT CHEST TECHNIQUE: Contrast enhanced CT of the chest with coronal and sagittal reformatted images. CLINICAL INFORMATION: PULMONARY NODULE COMPARISON: CT 12/21/2020 and 08/15/2020. PET/CT February 13, 2020. Multiple CT chest dating back to 2014 DLP: 1011.[address] scans at [facility] use at least one of these dose optimization techniques: automated e xposure control; mA and/or kV adjustment per patient size (includes targeted exams where dose is matc hed to clinical indication); or iterative reconstruction. FINDINGS: Stable noncalcified right upper lobe pulmonary nodule measuring 8 mm laterally. This is unchanged sin ce January 2020. This is slowly increased in size since 2014. No other suspicious pulmonary parenchymal n ormalities. No acute pulmonary infiltrates. No focal pneumonia or pleural fluid. Stable substernal th yroid goiter. Aortic calcification. Coronary calcification. Hepatomegaly. Diffuse fatty infiltration of the liver. Cholecystectomy clips. Small esophageal hiatal hernia. Splenic granulomas. Partially visualized hemangiomas in the liver unchanged. Tiny pericardial effusion or thickening. No other significant changes compared to previous. CT/CT chest w con* [id number] IMPRESSION: 1. Stable previously described right upper lobe 8 mm pulmonary nodule. This is unchanged since 12/21/2020 and 08/15/2020. Recommend 12 month follow-up. 2. No other significant changes from previous. 3. Tiny pericardial effusion or thickening. 4. Stable hepatic hemangiomas. Prior cholecystectomy. 5. Stable substernal thyroid goiter.
[2021-07-24] MEDS: iohexol 350 mg/mL 100 mL Btl IV (10:57)
== END 2021-07-24 10:23 | disposition home or self-care (01) ==
PROVIDERS: PCP Internal Medicine; Visit Provider Internal Medicine
DX: R91.1 Solitary pulmonary nodule (principal); D18.09 Hemangioma of other sites; Z90.49 Acquired absence of other specified parts of digestive tract
CPT/HCPCS: 71260; Q9967

== ENCOUNTER 2021-08-09 09:23 | Outpatient (CLI) | payer MEDICARE, MEDICAID, SELFPAY ==
--- NOTE | 2021-08-09 09:41 | FL_ITS ---
WS: [id number] UPPER GI WITH AIR AND SMALL BOWEL FOLLOW-THROUGH TECHNICAL: Double contrast upper GI with small bowel follow-through. Thin and thick barium solutions. FLUOROSCOPY TIME: 3.4 minutes CLINICAL INFORMATION: RUQ ABDOMINAL PAIN COMPARISON: None. FINDINGS: Swallowing: Normal. Esophagus: Mild esophageal dysmotility. No high-grade stricture or obstructing mass. Small esophageal hiatal hernia. Gastroesophageal reflux: Mild reflux. Stomach: Normal double contrast stomach. Normal stomach emptying. Duodenum: Normal duodenal C-loop. Other findings: Cholecystectomy. SMALL BOWEL EXAMINATION CLINICAL INFORMATION: RUQ ABDOMINAL PAIN FINDINGS: Initial abdomen radiograph: Normal bowel gas pattern. No abnormal calcification. Contrast material: 50/50 thin barium sulfate suspension. Transit time: 110 Minutes (normal = 30 - 240 minutes) Normal small bowel transit time. No evidence of small bowel stricture, adhesion, or mass. The termina l ileum is normal. FLUOROSCOPY TIME: 3.4 minutes FL/FL upperGI air smallbowel ser* IMPRESSION: 1. Normal small bowel follow-through. No evidence of obstructing small bowel m ass or lesion. No high-grade strictures. 2. Normal small bowel transit time. 3. Normal ileocecal valve 4. Mild esophageal dysmotility with small esophageal hiatal hernia. 5. Mild reflux is visualized in the supine imaging. 6. Normal double contrast stomach and duodenal C-loop.
== END 2021-08-09 09:24 | disposition home or self-care (01) ==
LOC: RAD 09:31
PROVIDERS: PCP Internal Medicine; Visit Provider Nurse Practitioner Family
DX: R10.11 Right upper quadrant pain (principal); K44.9 Diaphragmatic hernia without obstruction or gangrene
CPT/HCPCS: 74246; 74248

== ENCOUNTER 2021-10-22 13:26 | Emergency (ER) | payer MEDICARE, MEDICAID, SELFPAY ==
[2021-10-22 13:38] VITALS: BP 149/80; PULSE 82; RESP 12; TEMP 36.7; O2SAT 94; BMI 38.7
--- NOTE | 2021-10-22 13:54 | W.ED.BACK ---
HPI - Back Pain/Injury General: Chief Complaint: Back Pain/Injury Stated Complaint: back pain Time Seen by Provider: 10/22/21 13:46 Source: patient Mode of arrival: ambulatory Limitations: no limitations History of Present Illness: 66-year-old female presents to the ER today with back pain. Patient reports this has been going on for almost 2 months now. Patient reports this began when she fell trying to get into bed in August. Patient saw her PCP shortly thereafter and was given a steroid and muscle relaxer. Patient reports she felt better after the steroid however the pain has returned and is not improving. Patient is still taking the Robaxin muscle relaxer at this time. She takes Tylenol for pain and does not take any anti-inflammatory. Patient denies any contraindication to ibuprofen or anti-inflammatories. Patient denies any numbness or tingling in her lower legs. Denies any radiating pain. Patient reports her pain is mostly on the right side and located in mid back and low back. Patient denies any loss of bowel or bladder control at this time. Patient rates her pain an 8 out of 10. Onset (ago): month(s) (2) Timing: constant Severity: severe Pain scale (0-10): 8 Similar Symptoms Previously: Yes Quality: aching Location: lumbar spine and thoracic spine Radiation: none Exacerbating factors: movement Relieving factors: none Review of Systems General: Reports: 10 or more systems reviewed and unremarkable except in HPI and below PFSH ED PFSH: Medical History COVID-19 Hyperlipidemia Hypothyroidism Surgical History S/P cholecystectomy S/P hysterectomy Family History Sister Cancer LUNG Mother , AGE78 Diabetes Other CAD (coronary artery disease) Social History Smoking and tobacco status: current every day smoker (1.5 packs) cigarettes Packs smoked per day: 2 Years cigarettes smoked: 46 Quit status (tobacco): considering quitting Second hand smoke exposure: Yes Smoking risk assessment/counseling performed?: Yes Alcohol intake: never Counseling given: No Counseling given: No Lives independently: Yes Household members: family Marital status: / service: No Current occupational status: disabled Pets and animals: Yes History of recent travel: No Current gender identity: Female Physical Exam Const: COMMON NORMALS: average body habitus, patient oriented x3, no limitations, healthy appearing, alert and well nourished Neck/C-Spine: COMMON NORMALS: full ROM and no lymphadenopathy Resp: COMMON NORMALS: normal respiratory effort and No retractions EFFORT & INSPECTION: Yes able to speak in complete sentences Cardio: COMMON NORMALS: regular rate and regular rhythm RATE: regular rate RHYTHM: regular rhythm Back/Pelvis: COMMON NORMALS: thoracic and lumbar spine normal to inspection; negative for thoraco-lumbar ROM normal OTHER: Patient has pain when going from sitting to standing position also with flexion and extension of the waist. Nontender to palpation along the T-spine and L-spine however slightly tender in the paraspinal muscles on the right side. Extremity: COMMON NORMALS: normal to inspection and full ROM Neuro: COMMON NORMALS: patient oriented x3 SENSORIUM/ORIENTATION: Yes alert Psych: COMMON NORMALS: mental status grossly normal Skin: COMMON NORMALS: no rashes or lesions noted GENERAL SKIN EXAM: no rashes or lesions noted Course ED course: Patient presents to the ER today for low back pain x2 months. Patient has not had any imaging at this time but is scheduled for an MRI in October. We will go ahead with x-ray of the T-spine and L-spine today. Vital Signs: Vital signs: Vital Signs Temperature 98.1 F 10/22/21 13:38 Pulse Rate 82 10/22/21 13:38 Respiratory Rate 12 10/22/21 13:38 Blood Pressure 149/80 10/22/21 13:38 Pulse Oximetry 94 10/22/21 13:38 MDM - Back Pain/Injury Medical Decision Making 66-year-old female presents to the ER today for worsening low back pain x2 months. Patient reports this pain started in August when she fell trying to get into bed. Patient was seen by her doctor at that time and started on prednisone and methocarbamol. Patient reports the prednisone did help quite a bit however the pain has since returned. She is scheduled for imaging in October but reports the pain is just not tolerable anymore. Patient denies any neurological deficits. Denies any numbness or tingling. Denies any radiating pain. We went ahead and did x-rays given patient had no prior imaging. X-rays are negative for acute findings. Discussed this with patient. We will again do a Medrol Dosepak and add Mobic. Patient can continue the Robaxin she has at home. Recommended rest, warm, moist heat, and topical muscle rub. Follow-up with PCP in 7 to 10 days if no improvement. Return to the ER with new or worsening symptoms. Patient verbalized understanding and is in agreement with the treatment plan. Labs Radiology Impressions Lumbar Spine X-Ray 10/22/21 14:00 IMPRESSION: No acute findings. Thoracic Spine X-Ray 10/22/21 14:00 IMPRESSION: No acute findings. Discharge Plan Discharge Patient Disposition: Home Clinical Impression: Chronic back pain Condition: Stable Prescriptions: New Medrol ([place]) 4 mg tablets,dose pack See Rx Instructions .ROUTE .COMPLEX Qty: 21 0RF Rx Instructions: orally per package directions Mobic 15 mg tablet 15 mg PO DAILY Qty: 14 0RF No Action ergocalciferol (vitamin D2) [Vitamin D2] 1,250 mcg (50,000 unit) capsule 1,250 mcg PO DAILY 0RF elderberry fruit 200 mg capsule PO DAILY 0RF gabapentin 300 mg capsule 300 mg PO BID 0RF budesonide-formoterol [Symbicort] 80-4.5 mcg/actuation HFA aerosol inhaler 2 puff inhalation BID 0RF Spiriva with HandiHaler 18 mcg capsule, w/inhalation device 1 cap inhalation DAILY 0RF Rx Instructions: puncture 1 cap using device; one dose = 2 inhalations albuterol sulfate [ProAir HFA] 90 mcg/actuation HFA aerosol inhaler 2 puff INHALATION Q6H PRN0RF levothyroxine 50 mcg tablet 50 mcg PO DAILY 0RF aspirin [Aspir-81] 81 mg tablet,delayed release (DR/EC) 81 mg PO DAILY 0RF ipratropium-albuterol 0.5 mg-3 mg(2.5 mg base)/3 mL solution for nebulization 3 ml inhalation QID PRN0RF baclofen 20 mg tablet 20 mg PO DAILY 0RF levofloxacin 500 mg tablet 500 mg PO DAILY 0RF lactulose 10 gram/15 mL (15 mL) solution 15 ml PO BID 7 Days Qty: 210 0RF Discharge Orders: Discharge ED (Routine); Ordered 10/22/21 Ordered By: Katrina Arreola Referrals: Faby Kumar MD [Primary Care Provider] - Discharge Diet: Usual diet Discharge Activity: Increase activity as tolerated Patient Instructions: Acute Low Back Pain (ED), Opioid Safety Activity Restrictions/Additional Instructions: Take Medrol Dosepak and Mobic as prescribed. Continue methocarbamol at home. Warm, moist heat recommended. Topical muscle rub recommended but do not use with heat or ice. Follow-up with PCP in 10 to 14 days if no improvement. Return to the ER with new or worsening symptoms. Coding Level of Care Code ED Mysql Database Administrator for Chg Fwd Exam Comprehensive
--- NOTE | 2021-10-22 14:00 | XRR_ITS ---
PROCEDURE INFORMATION: Exam: XR Lumbosacral Spine Exam date and time: 10/22/2021 2:00 PM Age: 66 years old Clinical indication: Low back pain; Patient HX: No surgeries on spine; Additional info: Fall with back pain TECHNIQUE: Imaging protocol: XR of the lumbosacral spine. Views: 2 or 3 views. COMPARISON: CR XR lumbar spine 2-3V* [id number] 04/18/2021 9:05 AM FINDINGS: Bones/joints: No acute fracture. Normal alignment. Soft tissues: Unremarkable. XR/XR lumbar spine 2-3V* [id number] IMPRESSION: No acute findings.
--- NOTE | 2021-10-22 14:00 | XRR_ITS ---
PROCEDURE INFORMATION: Exam: XR Thoracic Spine Exam date and time: 10/22/2021 2:00 PM Age: 66 years old Clinical indication: Pain in thoracic spine; Patient HX: No surgeries on spine; Additional info: Fall with back pain TECHNIQUE: Imaging protocol: XR of the thoracic spine. Views: 3 views. COMPARISON: CT chest w con* [id number] 07/24/2021 10:43 AM FINDINGS: Bones/joints: No acute fracture. Normal alignment. Soft tissues: Unremarkable. XR/XR thoracic spine 3V* [id number] IMPRESSION: No acute findings.
[2021-10-22 15:25] VITALS: BP 128/75; PULSE 70; RESP 16; O2SAT 93
== END 2021-10-22 15:26 | disposition home or self-care (01) ==
PROVIDERS: Emergency Provider Physician Assistant; PCP Internal Medicine
DX: G89.29 Other chronic pain (principal); M54.9 Dorsalgia, unspecified; Z79.82 Long term (current) use of aspirin; E78.5 Hyperlipidemia, unspecified; F17.210 Nicotine dependence, cigarettes, uncomplicated
CPT/HCPCS: 72072; 72100; 99282

== ENCOUNTER → 2021-11-23 10:08 | Outpatient (BNVA) | payer MEDICARE, MEDICAID, SELFPAY | PROVIDERS: PCP Internal Medicine; Referring Provider Internal Medicine; Visit Provider Orthopaedic Surgery | DX: M47.897 Other spondylosis, lumbosacral region (principal); M47.896 Other spondylosis, lumbar region; M54.50 Low back pain, unspecified | CPT/HCPCS: 72110 ==

== ENCOUNTER 2021-12-11 12:38 | Day surgery (SDC) | payer MEDICARE, MEDICAID, SELFPAY ==
[2021-12-07 10:26] VITALS: BMI 38.0
--- NOTE | 2021-12-07 11:28 | ECG_ITS ---
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 Measurements Intervals [place] Rate: 80 P: 43 MT: 157 QRS: 126 QRSD: 83 T: 41 QT: 373 QTc: 433 Interpretive Statements SINUS RHYTHM INDETERMINATE AXIS PATTERN CONSISTENT WITH PULMONARY DISEASE Compared to ECG 12/24/2020 18:18:11 Indeterminate axis now present Right-axis deviation no longer present Electronically Signed On 12-07-2021 16:16:17 CDT by Fausto Valentin M.D. [id number]
--- NOTE | 2021-12-07 17:33 | ANES.PREANE2 ---
Pre-Anesthetic Assessment Height/Weight: Height 1.7 m Weight 110.223 kg Preop Diagnosis: Lumbar stenosis Operation Date: 12/11/21 13:55 Proposed Procedures p Discectomy right side l3.4 39182/m48.062(Right) - Jl Eastman DO Familial anesthetic complications: MPme Was Beta Candy taken within 24 hours: N/A Was Clonidine taken within 24 hours: N/A Social Tobacco (Committed smoker with no interest in permanent cessation. States I will quit when I . ) Pulmonary Chronic Obstructive Pulmonary Disease (Bronchitis ), Sleep Apnea (Uses home O2 ) and Shortness of Breath Hx of chronic respiratory failure CV/HEM METS < 4 EKG 12/07/21 ? Interpretive Statements SINUS RHYTHM INDETERMINATE AXIS PATTERN CONSISTENT WITH PULMONARY DISEASE Compared to ECG 12/24/2020 18:18:11 Indeterminate axis now present Right-axis deviation no longer present Electronically Signed On 12-07-2021 16:16:17 CDT by Fausto Valentin M.D. [id number] None reported Hepatic None reported GI Gastroesophageal Reflux Disease Metabolic Thyroid Disease [facility] [place] Lower Back Pain Lumbar stenosis Cervical spondylosis Neuropsych Neuropathy (B/L carpal tunnel syndrome ) Anesthetic Plan ASA status: 3 (66 year old female with hx of chronic respiratory failure, COPD, RAPHAEL, lumbar stenosis, and neuropathy. ) Anesthesia: Anesthesia Evaluation and General Other: We discussed risk and benefits of general anesthesia including PONV, sore throat (sometimes severe), corneal abrasion, positioning and peripheral nerve injuries, life threatening allergic reaction, post operative ICU admission requiring prolonged intubation, stroke, heart attack, , and rare incidences of recall. Patient consents to proceed with general anesthesia. Risk of > 500 ml blood loss (7ml/kg in children): No Medications/Allergies Home Medications Medication Instructions Recorded Confirmed Last Taken Type albuterol sulfate 90 mcg/actuation 2 puff INHALATION Q6H PRN 02/04/20 12/07/21 Unknown History aerosol inhaler (ProAir HFA) aspirin 81 mg tablet,delayed 81 mg PO DAILY 02/04/20 12/07/21 12/06/21 History release (Aspir-) levothyroxine 50 mcg tablet 50 mcg PO DAILY 02/04/20 12/07/21 Unknown History ergocalciferol (vitamin D2) 1,250 1,250 mcg PO DAILY 02/15/20 12/07/21 Unknown History mcg (50,000 unit) capsule (Vitamin D2) budesonide-formoterol HFA 80 2 puff INHALATION BID 12/26/20 12/07/21 Unknown History mcg-4.5 mcg/actuation aerosol inhaler (Symbicort) gabapentin 300 mg capsule 300 mg PO BID cap 01/24/21 12/07/21 Unknown History ipratropium 0.5 mg-albuterol 3 mg 3 ml INHALATION QID PRN 05/02/21 12/07/21 Unknown History (2.5 mg base)/3 mL nebulization soln tramadol 50 mg tablet 50 mg PO Q6H PRN 7 Days #30 tab 11/23/21 12/07/21 Unknown Rx Allergies Allergy/AdvReac Type Severity Reaction Status Date / Time Penicillins Allergy Unknown Unknown Verified 12/07/21 10:21 Sulfa (Sulfonamide Allergy Unknown Unknown Verified 12/07/21 10:21 Antibiotics) PFSH Anesthesia Medical History COVID-19 Hyperlipidemia Hypothyroidism Surgical History S/P cholecystectomy S/P hysterectomy Family History Sister Cancer LUNG Mother , AGE78 Diabetes Other CAD (coronary artery disease) Social History Smoking and tobacco status: current every day smoker (1.5 packs) cigarettes Packs smoked per day: 2 Years cigarettes smoked: 46 Quit status (tobacco): considering quitting Second hand smoke exposure: Yes Smoking risk assessment/counseling performed?: Yes Alcohol intake: never Counseling given: No Counseling given: No Lives independently: Yes Household members: family Marital status: / service: No Current occupational status: disabled Pets and animals: Yes History of recent travel: No Current gender identity: Female Data Anesthesia Cardiac Studies: No Data to Display
[2021-12-11] VITALS (12 sets, daily range): BP systolic 140–188; BP diastolic 82–100; PULSE 82–93; RESP 14–20; TEMP 36.1–36.8; O2SAT 92–98
--- NOTE | 2021-12-11 | SCC_ITS ---
Procedure done: 1. Right L3/4 laminectomy with partial facetectomy and discectomy 11.2 seconds of fluoroscopic guidance, for a cumulative dose of 11.74 mGy, was provided to Dr. Eastman by the radiology department. C-arm images of the lumbar spine were saved for the patient's permanent record. [facility]
--- NOTE | 2021-12-11 | XR_ITS ---
WS: [id number] Lumbar spine, C-arm fluoroscopy, 12/11/2021. Clinical Data: spinal stenosis Comparison: None. Findings: Dr. Eastman performed a posterior lumbar decompression. XR/XR lumbar spine 2-3V* [id number] Impression: Lumbar decompression.
[2021-12-11] MEDS: sodium chloride 0.9% 1,000 ML 30 ML IV (13:31)
--- NOTE | 2021-12-11 13:36 | W.PM.OPSUD ---
Surgery/Procedure H&P Update DATE OF PROCEDURE: December 11, 2021 DATE H&P PERFORMED: 11/23/21 H&P UPDATE INFORMATION: I have reviewed H&P completed within last 30 days, I have examined patient prior to procedure and No changes to prior documentation PREOP DIAGNOSIS: Lumbar radiculopathy L3-4 PLANNED PROCEDURE: Operation Date: 12/11/21 13:55 Proposed Procedures p Discectomy right side l3.4 90642/m48.062(Right) - Jl Eastman DO
[2021-12-11] MEDS: HYDROmorphone 1 mg/mL INJ 1 mL 0.5 MG IVP (13:50)
--- NOTE | 2021-12-11 14:04 | P.ANESUD_ITS ---
Pre-Anesthetic Update Pre-Anesthetic Assessment: Date of Surgery/Procedure: 12/11/21 Preop Fabiana gnosis: Lumbar radiculopathy L3-4 Proposed Procedure: Operation Date: 12/11/21 13:55 Proposed Procedures p Discectomy right side l3.4 25488/m48.062(Right) - Jl Eastman, DO Any changes to Pre-Anesthetic Assessment?: No Last Intake: Intake Last Liquid Date 12/11/21 Last Liquid Time 09:00 Last Solid Date 12/10/21 Last Solid Time 21:00 Vitals: Oxygen Delivery Me thod 12/11/21 13:18 Exam: Pre-Anes Outpt Exam: alert, oriented x 3, clear to auscultation bilaterally and regular rate & rhythm Cardiac Studies: No Data to Display
[2021-12-11] MEDS: clindamycin 900 MG/50 ML PREMIX 100 MG IV (14:09)
--- NOTE | 2021-12-11 15:39 | PM.OP ---
Operative Report Date of procedure: December 11, 2021 Pre-op diagnosis: Preop Diagnosis Lumbar radiculopathy L3-4 Post-op diagnosis: same Procedure done: 1. Right L3/4 laminectomy with partial facetectomy and discectomy Surgeon: Jl Eastman Scientific Diver: Shawn Diaz Estimated blood loss (mL): 15 Procedure: 1. Right L3/4 laminectomy with partial facetectomy and discectomy Patient is brought to the operative suite. After undergoing anesthesia they are placed in the prone position. All areas of impingement are well padded. Patient is then prepped and draped in the normal sterile fashion. A skin incision is made over the L3/4 level. This is confirmed under c-arm guidance. A series of dilators are passed and the tubular retractor is docked on the L3 lamina. A bovie is used to clear the soft tissue off the lamina and the L 3/4 facet joint. A high speed karlo is then used to perform the laminectomy and take down the medial aspect of the L 3/4 facet joint. A kerrison rongeure was then used to take down the remaining lamina and smooth the edge of the laminectomy up to the point where the ligamentum flavum attaches. Attention was then brought to the medial aspect of the facet joint. The remaining medial aspect of the superior and inferior aspect of the facet joint were taken down with the kerrison from the pedicle of L3 to L 4. The facet joint had significant hypertrophy. Attention was then brought to the Ligamentum Flavum. The ligament was taken down from the lamina of L3 to L4 and out medially to the remaining facet joint. The ligament was thick. The dura was then exposed. The dura was in good repair. The L3 nerve was then traced with a curette out the L3/4 foramen and found to be adequately decompressed. The L4 nerve was traced with a curette around the L4 pedicle. The lateral recess was opened with a kerrison helping to further decompress the L4 nerve. Wound is then irrigated copiously with saline and surgiflo is used to stop any bleeding. The tubular retractor is removed and the wound is closed with vicryl and monocryl suture. Glue is then used to protect the wound. A sterile dressing is then placed. Patient was then placed in the supine position and transferred to the PACU in stable condition.
[2021-12-11] MEDS: ipratropium 0.5 mg/2.5 mL Neb INHALATION (16:09)
[2021-12-11] MEDS: ondansetron 2 mg/ML SDV 2 mL 4 MG IVP (16:33)
== END 2021-12-11 17:25 | disposition home or self-care (01) ==
PROVIDERS: PCP Internal Medicine; Visit Provider Orthopaedic Surgery
PROC: (CPT 63047; principal; 2021-12-11 13:55)
DX: M48.062 Spinal stenosis, lumbar region with neurogenic claudication (principal); J44.9 Chronic obstructive pulmonary disease, unspecified; Z99.81 Dependence on supplemental oxygen; K21.9 Gastro-esophageal reflux disease without esophagitis; G47.33 Obstructive sleep apnea (adult) (pediatric); E78.5 Hyperlipidemia, unspecified; E03.9 Hypothyroidism, unspecified
CPT/HCPCS: 63047; 72100; 76000; 93005; J1100; J1170; J2405; J2704; J2710; J3490; J7030; J7611; J7644

== ENCOUNTER 2021-12-14 12:26 | Emergency (ER) | payer MEDICARE, MEDICAID, SELFPAY ==
[2021-12-14 13:10] VITALS: BP 149/88; PULSE 89; RESP 17; TEMP 36.8; O2SAT 93; BMI 38.0
--- NOTE | 2021-12-14 15:01 | ED_ITS ---
HPI - Back Pain/Injury General: Chief Complaint: Back Pain/Injury Stated Complaint: lower body pain Time Seen by Provider: 12/14/21 15:01 Source: patient Mode of arrival: ambulatory History of Present Illness: 66-year-old female presents emergency room complaining of low back pain. Postop day #3 lumbar discectomy and partial fac etectomy. She is complaining of severe pain to her lower extremities with some radiation to the upper legs bilaterally. No loss of bowel or bladder control no drainage from the incision. No saddle paresthesias. Pain is just not adequately controlled at this point. She had called Dr. Eastman's office but states she had not heard back from them. MD elicited complaint: back pain Pertinent past history: back surgery Onset (ago): hour(s) Timing: constant Severity: moderate Similar Symptoms Previously: Yes Quality: sharp Location: lumbar spine Radiation: left upper leg and right upper leg Exacerbating factors: sitting upright and walking Relieving factors: supine Context: other (Recent surgery) Associated symptoms: Reports difficulty walking; Deny abdominal pain, arthralgias, chills, change in bowel habits, dysuria, fatigue, fecal incontinence, fever(s), hematuria, myalgias, nausea, numbness, syncope, tingling/numbness/burning, urinary frequency, urinary urgency, vomiting or weakness Review of Systems Const: Denies: fever(s), chills or fatigue ENMT: Denies: throat pain, ear or mastoid pain, nasal discharge or nasal conge stion Card: Denies: syncope Resp: Denies: dyspnea, productive cough or non-productive cough GI: Denies: abdominal pain, nausea, vomiting, fecal incontinence or change in bowel habits : Denies: flank pain, difficulty voiding, dysuria, urinary frequency, urinary urgency or hematuria Skin/Breast: Denies: rash or pruritus Neuro: Reports: difficulty walking PFS ED PFSH: Medical History COVID-19 Hyperlipidemia Hypothyroidism Surgical History S/P cholecystectomy S/P hysterectomy Family History Sister Cancer LUNG Mother , [id number] Diabetes Other CAD (coronary artery disease) Social History Smoking and tobacco status: current every day smoker (1.5 packs) cigarettes Packs smoked per day: 2 Years cigarettes smoked: 46 Quit status (tobacco): considering quitting Second hand smoke exposure: Yes Smoking risk assessment/counseling performed?: Yes Alcohol intake: never Counseling given: No Counseling given: No Lives independently: Yes Household members: family Marital status: / service: No Current occupational status: disabled Pets and animals: Yes History of recent travel: No Current gender identity: Female Physical Exam Const: COMMON NORMALS: no acute distress GENERAL APPEARANCE: cooperative and comfortable ORIENTATION/CONSCIOUSNESS: Yes awake, Yes oriented to person, Yes oriented to place and Yes oriented to time HENMT: COMMON NORMALS: normocephalic, atraumatic and hearing grossly normal bilaterally HEAD & SCALP: normocephalic and atraumatic Neck/C-Spine: COMMON NORMALS: no JVD Resp: COMMON NORMALS: normal respiratory effort, No retractions, No use of accessory muscles and clear to auscultation bilaterally AUSCULTATION: clear to auscultation bilaterally Cardio: COMMON NORMALS: no JVD, regular rate, regular rhythm and No murmurs present (Cardio) RATE: regular rate RHYTHM: regular rhythm Extremity: COMMON NORMALS: normal to inspection, capillary refill normal, no clubbing, cyanosis or edema, no calf tenderness and no pedal edema Neuro: SENSORIUM/ORIENTATION: Yes oriented to person, Yes oriented to place and Yes oriented to time SENSORY EXAM: No sensory level loss detected MOTOR EXAM: 5/5 motor strength present throughout DEEP TENDON REFLEXES: Right patellar reflex intensity grade: 2+ and Left patellar reflex intensity grade: 2+ OTHER: Straight leg raising test negative bilaterally dorsum plantar flex strength 5 of 5 neurovascular intact in lower extremities Skin: COMMON NORMALS: no rashes or lesions noted GENERAL SKIN EXAM: no rashes or lesions noted Course Vital Signs: Vital signs: Vital Signs Temperature 98.2 F 12/14/21 15:13 Pulse Rate 89 12/14/21 15:13 Respiratory Rate 16 12/14/21 15:55 Blood Pressure 149/88 12/14/21 15:13 Pulse Oximetry 93 12/14/21 15:13 MDM - Back Pain/Injury Medical Decision Making During the course of reviewing her pain medications found that Dr. Eastman's office had actually responded to the patient's request for improved pain control and called in oxycodone to the pharmacy. We verified with both the office and with the pharmacy at [facility] that the prescription was called in. Advised the patient they already had a stronger pain medication called in. In addition to that we will add some prednisone taper. Discussed Dr. michaels and he agreed with cata cole and asked him to follow-up early next week in his office. Medical Records I reviewed the patient's medical records. Labs I reviewed the patient's lab results. : 12/14/21 15:31 12/14/21 15: Laboratory Results WBC 11.9 10^3/uL (4.0-10.0) H 12/14/21 15: RBC 4.83 10^6/uL (4.1-5.3) 12/14/21 15: Hgb 14.0 g/dL (11.5-15.3) 12/14/21 15: Hct 43.1 % (37.0-47.0) 12/14/21 15: MCV 89.2 fl (81-99) 12/14/21 15: MCH 29.0 pg (28.0-34.0) 12/14/21 15: MCHC 32.5 g/dL (30.0-36.0) 12/14/21 15: RDW 14.6 % (12.1-15.1) 12/14/21 15: Plt Count 124 10^3/cmm (130-400) L 12/14/21: MPV 12.2 fL (7.4-10.4) H 12/14/21 15: Neut % (Auto) 68.3 % 12/14/21 15: Lymph % (Auto) 23.1 % 12/14/21 15: [place] % (Auto) 5.7 % 12/14/21 15: Eos % (Auto) 1.9 % 12/14/21 15: Baso % (Auto) 0.6 % 12/14/21 15: Neut # (Auto) 8.15 10^3/uL (1.8-7.7) H 12/14/21 15:31 Lymph # (Auto) 2.8 10^3/uL (0.8-4.8) 12/14/21 15:31 [place] # (Auto) 0.7 10^3/uL (0.2-0.9) 12/14/21 15:31 Eos # (Auto) 0.2 10^3/uL (0.0-0.8) 12/14/21 15:31 Baso # (Auto) 0.1 10^3/uL (0.0-0.1) 12/14/21 15:31 Nucleated RBC % (auto) 0 % 12/14/21 15:31 Nucleated RBCs # 0.0 /100WBC 12/14/21 15:31 Sodium 135 mmol/L (136-145) L 12/14/21 15:31 Potassium 4.1 mmol/L (3.5-5.1) 12/14/21 15:31 Chloride 97 mmol/L (98-107) L 12/14/21 15:31 Carbon Dioxide 28 mmol/L (22-29) 12/14/21 15:31 Anion Gap 14.1 (5-19) 12/14/21 15:31 BUN 12 mg/dL (8-23) 12/14/21 15:31 Creatinine 0.5 mg/dL (0.5-0.9) 12/14/21 15:31 GFR Calculation 123.8 mL/min (90-130) 12/14/21 15:31 Glucose 104 mg/dL (65-115) 12/14/21 15:31 Calculated Osmolality 280 mOsm/kg (285-295) L 12/14/21 15:31 Calcium 11.2 mg/dL (8.5-10.5) H 12/14/21 15:31 Total Bilirubin 0.4 mg/dL (0.15-1.2) 12/14/21 15:31 AST 23 U/L (0-32) 12/14/21 15:31 ALT 29 U/L (0-33) 12/14/21 15:31 Alkaline Phosphatase 184 IU/L (35-105) H 12/14/21 15:31 Total Protein 7.3 g/dL (6.6-8.7) 12/14/21 15:31 Albumin 4.4 g/dL (3.5-5.2) 12/14/21 15:31 Globulin 2.9 g/dL (1.3-4.6) 12/14/21 15:31 Urine Color Yellow (Yellow) 12/14/21 15:19 Urine Appearance Cloudy (CLEAR) 12/14/21 15:19 Urine pH 5 (5-7) 12/14/21 15:19 Ur Specific [place] 1.015 (1.005-1.030) 12/14/21 15:19 Urine Protein Neg (Negative) 12/14/21 15:19 Urine Glucose (UA) Norm (Normal) 12/14/21 15:19 Urine Ketones Negative (Negative) 12/14/21 15:19 Urine Blood 2+ (Negative) H 12/14/21 15:19 Urine Nitrate Negative (Negative) 12/14/21 15:19 Urine Bilirubin Neg (Negative) 12/14/21 15:19 Urine Urobilinogen Norm mg/dL (Negative) 12/14/21 15:19 Ur Leukocyte Esterase 2+ (Negative) H 12/14/21 15:19 Urine RBC 0-4 /hpf (0-2) H 12/14/21 15:19 Urine WBC 25-40 /hpf (0-5) H 12/14/21 15:19 Ur Squamous Epith Cells 5-10 /hpf (0-5) H 12/14/21 15:19 Ur Transition Epith Cell None /hpf 12/14/21 15:19 Ur Renal Epithelial Cell N /hpf 12/14/21 15:19 Amorphous Sediment Not Reportable 12/14/21 15:19 Urine Bacteria 2+ /hpf (NONE) H 12/14/21 15:19 Urine Mucus N /hpf 12/14/21 15:19 Discharge Plan Discharge Patient Disposition: Home Clinical Impression: Post laminectomy syndrome Condition: Stable Prescriptions: New prednisone 20 mg tablet 20 mg PO TID Qty: 15 0RF Rx Instructions: 1 p.o. 3 times daily x3 days, 1 p.o. twice daily x2 days, 1 p.o. daily x2 days tizanidine 4 mg capsule 4 mg PO Q8H PRN (Reason: muscle spasticity) Qty: 20 0RF Discontinued tramadol 50 mg tablet 50 mg PO Q6H PRN (Reason: pain) 7 Days Qty: 30 0RF methocarbamol 500 mg tablet 500 mg PO 0RF hydrocodone-acetaminophen 5-325 mg tablet 1 - 2 tab PO .Q4-6H Qty: 40 0RF No Action ergocalciferol (vitamin D2) [Vitamin D2] 1,250 mcg (50,000 unit) capsule 1,250 mcg PO DAILY 0RF gabapentin 300 mg capsule 300 mg PO BID 0RF budesonide-formoterol [Symbicort] 80-4.5 mcg/actuation HFA aerosol inhaler 2 puff inhalation BID 0RF albuterol sulfate [ProAir HFA] 90 mcg/actuation HFA aerosol inhaler 2 puff INHALATION Q6H PRN (Reason: sob) 0RF levothyroxine 50 mcg tablet 50 mcg PO DAILY 0RF aspirin [Aspir-81] 81 mg tablet,delayed release (DR/EC) 81 mg PO DAILY 0RF ipratropium-albuterol 0.5 mg-3 mg(2.5 mg base)/3 mL solution for nebulization 3 ml inhalation QID PRN (Reason: sob) 0RF oxycodone 5 mg tablet 5 - 10 mg PO Q4H PRN (Reason: pain) 7 Days Qty: 40 0RF rosuvastatin 10 mg tablet 10 mg PO 0RF Spiriva with HandiHaler 18 mcg capsule, w/inhalation device 18 mcg INHALATION 0RF Discharge Orders: Discharge ED (Routine); Ordered 12/14/21 Ordered By: Mao Underwodo Referrals: Faby Kumar MD [Primary Care Provider] - Discharge Diet: Usual diet Discharge Activity: Limit activity as instructed Patient Instructions: Opioid Safety Activity Restrictions/Additional Instructions: Use the oxycodone Dr. Jordan sent to the pharmacy in place of your hydrocodone. You can also use the muscle relaxer we prescribed today instead of m ethocarbamol. Follow-up with Dr. Jordan as previously scheduled. Coding Level of Care Code ED Assistant Kitchen Manager for Chg Fwd Exam Comprehensive
[2021-12-14 15:13] VITALS: BP 149/88; PULSE 89; RESP 17; TEMP 36.8; O2SAT 93
[2021-12-14 15:46] LABS: Basophils # 0.1 10^3/uL (0.0-0.1); Basophils % 0.6 %; Eosinophils # 0.2 10^3/uL (0.0-0.8); Eosinophils % 1.9 %; Hematocrit 43.1 % (37.0-47.0); Lymphocytes # 2.8 10^3/uL (0.8-4.8); Lymphocytes % 23.1 %; Mean Corpuscular HGB Conc 32.5 g/dL (30.0-36.0); Mean Corpuscular Volume 89.2 fl (81-99); Mean Platelet Volume 12.2 fL (7.4-10.4); Monocytes # 0.7 10^3/uL (0.2-0.9); Monocytes % 5.7 %; Neutrophils # 8.15 10^3/uL (1.8-7.7); Neutrophils % 68.3 %; Nucleated Red Blood Cells % 0 %; Platelet Count 124 10^3/cmm (130-400); Red Blood Count 4.83 10^6/uL (4.1-5.3); Red Cell Distribution Width 14.6 % (12.1-15.1); White Blood Count 11.9 10^3/uL (4.0-10.0)
[2021-12-14] MEDS: ondansetron 2 mg/ML SDV 2 mL 4 MG IVP (15:47)
[2021-12-14] MEDS: orphenadrine 30 mg/mL Inj 2 mL 60 MG IVP (15:49)
[2021-12-14] MEDS: dexamethasone 10 mg/mL INJ IVP (15:50)
[2021-12-14 15:55] VITALS: RESP 16
[2021-12-14] MEDS: morphine 4 mg/mL SDV 1 mL 6 MG IVP (15:55)
[2021-12-14 16:09] LABS: Add Urine Microscopic? YES; Bilirubin Urine Neg (Negative); Blood Urine 2+ (Negative); Glucose Urine UA Norm (Normal); Ketones Urine Negative (Negative); Leukocyte Esterase Urine 2+ (Negative); Nitrate Urine Negative (Negative); Protein Urine Neg (Negative); Specific Gravity, Urine 1.015 (1.005-1.030); Urine Appearance Cloudy (CLEAR); Urine Color Yellow (Yellow); Urobilinogen Urine Norm (Negative); pH Urine 5 (5-7)
[2021-12-14 16:10] LABS: Add Urine Culture? Yes; Bacteria Urine 2+ /hpf; Mucus Urine N /hpf; RBC Urine 0-4 /hpf (0-2); Renal Epithelial Cells Urine N /hpf; WBC Urine 25-40 /hpf (0-5)
[2021-12-14 16:11] LABS: Alanine Aminotransferase 29 U/L (0-33); Albumin Level 4.4 g/dL (3.5-5.2); Alkaline Phosphatase 184 IU/L (35-105); Blood Urea Nitrogen 12 mg/dL (8-23); Calcium 11.2 mg/dL (8.5-10.5); Carbon Dioxide 28 mmol/L (22-29); Chloride 97 mmol/L (98-107); Globulin 2.9 g/dL (1.3-4.6); Glomerular Filtration Rate 123.8 mL/min (90-130); Glucose 104 mg/dL (65-115); Osmolality Calculated 280 mOsm/kg (285-295); Sodium 135 mmol/L (136-145); Total Bilirubin 0.4 mg/dL (0.15-1.2); Total Protein 7.3 g/dL (6.6-8.7)
[2021-12-14 16:12] LABS: Anion Gap 14.1 (5-19); Aspartate Amino Transferase 23 U/L (0-32); Potassium 4.1 mmol/L (3.5-5.1)
== END 2021-12-14 16:06 | disposition home or self-care (01) ==
PROVIDERS: Emergency Medicine; Emergency Provider Family Medicine; PCP Internal Medicine
DX: M96.1 Postlaminectomy syndrome, not elsewhere classified (principal); Z86.16 Personal history of COVID-19; F17.210 Nicotine dependence, cigarettes, uncomplicated; Z79.82 Long term (current) use of aspirin
CPT/HCPCS: 80053; 81001; 85025; 87086; 96374; 96375; 99283; J1100; J2270; J2360; J2405

== ENCOUNTER → 2021-12-26 09:29 | Outpatient (BNVA) | payer MEDICARE, MEDICAID, SELFPAY | PROVIDERS: PCP Internal Medicine; Visit Provider Orthopaedic Surgery | DX: Z47.89 Encounter for other orthopedic aftercare (principal); Z98.890 Other specified postprocedural states | CPT/HCPCS: 99024 ==

== ENCOUNTER → 2022-01-03 08:32 | Outpatient (BNVA) | payer MEDICARE, MEDICAID, SELFPAY | PROVIDERS: PCP Internal Medicine; Visit Provider Otolaryngology | DX: H66.93 Otitis media, unspecified, bilateral (principal); H72.93 Unspecified perforation of tympanic membrane, bilateral; H90.0 Conductive hearing loss, bilateral; F17.210 Nicotine dependence, cigarettes, uncomplicated | CPT/HCPCS: 99213 ==

== ENCOUNTER → 2022-01-23 08:21 | Outpatient (BNVA) | payer MEDICARE, MEDICAID, SELFPAY | PROVIDERS: PCP Internal Medicine; Visit Provider Orthopaedic Surgery | DX: Z47.89 Encounter for other orthopedic aftercare (principal); Z98.890 Other specified postprocedural states | CPT/HCPCS: 99024 ==

== ENCOUNTER 2022-01-26 14:40 | Outpatient (CLI) | payer MEDICARE, MEDICAID, SELFPAY ==
--- NOTE | 2022-01-26 14:48 | MM_ITS ---
WS: [email or web address] Exam: [place] [id number] Date/Time of Exam: 01/26/2022 2:48 PM Reason For Exam: SCREENING VIEWS: MLO and CC views both breasts. 3D digital tomosynthesis is also included in this exam. Comparison made with prior exam of 03/18/2014 , 03/30/2015, 02/16/2017, 10/01/2019 Findings: There was no sign of mass, architectural distortion or suspicious calcification in either breast. Sta ble appearing subcentimeter nodule in the anterior right breast.The breasts are fatty. MM/[place] [id number] Impression: BI-RADS: 2-Benign FOLLOW-UP: 1 Year Follow-up This mammogram was also analyzed by the Computer Aided Detection System R2 Imag e Time Piece Repairer.
== END 2022-01-26 14:41 | disposition home or self-care (01) ==
LOC: RAD 14:44
PROVIDERS: PCP Internal Medicine; Visit Provider Internal Medicine
DX: Z12.31 Encounter for screening mammogram for malignant neoplasm of breast (principal)
CPT/HCPCS: 77063; 77067

== ENCOUNTER → 2022-02-02 08:16 | Outpatient (BNVA) | payer MEDICARE, MEDICAID, SELFPAY | PROVIDERS: PCP Internal Medicine; Visit Provider Otolaryngology | DX: H66.93 Otitis media, unspecified, bilateral (principal); H72.93 Unspecified perforation of tympanic membrane, bilateral; H90.0 Conductive hearing loss, bilateral; F17.210 Nicotine dependence, cigarettes, uncomplicated | CPT/HCPCS: 99213 ==

== ENCOUNTER 2022-02-12 07:49 | Outpatient (CLI) | payer MEDICARE, MEDICAID, SELFPAY ==
--- NOTE | 2022-02-12 07:59 | NM_ITS ---
WS: [email or web address] NUCLEAR MEDICINE PARATHYROID SCINTIGRAPHY INDICATION: Hyperparathyroidism TECHNIQUE: 21.0 mCi technetium 99m sestamibi was administered with initial and 2 hour delayed imaging . Oblique and AP imaging was obtained. Suprasternal notch and chin markers. FINDINGS: Normal salivary activity on the initial imaging. Slightly decreased LEFT lower pole thyroid activity corresponds to the nodule seen on the prior CT ch est July 24, 2021 measuring 2.5 CM. This can be further evaluated with ultrasound. No focal retai geoff activity on the delayed imaging to indicate parathyroid adenoma. No other suspicious findings. NM/NM parathyroid [id number] IMPRESSION: 1. No evidence of parathyroid adenoma. 2. LEFT lower pole thyroid nodule with slightly decreased activity (cold nodul e) can be further evaluated with ultrasound and potentially ultrasound-guided F NA if accessible. This extends into the mediastinum on the prior chest and may be difficult to access.
== END 2022-02-12 07:50 | disposition home or self-care (01) ==
LOC: RAD 07:50
PROVIDERS: PCP Internal Medicine; Visit Provider Internal Medicine
DX: E21.3 Hyperparathyroidism, unspecified (principal); E04.1 Nontoxic single thyroid nodule
CPT/HCPCS: 78070; A9500

== ENCOUNTER 2022-02-26 08:39 | Outpatient (CLI) | payer MEDICARE, MEDICAID, SELFPAY ==
--- NOTE | 2022-02-26 09:01 | MR_ITS ---
WS: [email or web address] INDICATION: Right-sided abdominal pain. Enlarged liver ultrasound. Liver hemangiomas COMPARISON: CT abdomen pelvis May 06, [address] chest 2020 TECHNIQUE: MRI of the abdomen without and with gadolinium enhancement. Coronal and axial single shot T2, axial T2 fat sat, dual Echo imaging, and dynamic post gadolinium imaging was obtained with fat sa turation technique FINDINGS: Hepatomegaly diffuse fatty infiltration liver. Normal portal vein and splenic vein. Normal GE junction. Splenic granulomas. Adrenal glands are normal. Normal renal parenchymal enhancement. No hydronephrosis. Pancreas is normal in appearance. No intrahepatic biliary ductal dilatation. Prior ch olecystectomy. Normal caliber upper abdominal aorta. No abdominal lymphadenopathy. Stable hemangiomas in the RIGHT hepatic lobe the largest measuring 2.5 cm near the dome the liver. Th erika appear unchanged since the prior studies. Bilateral renal cysts largest in the RIGHT measuring 1. 5 cm and lower pole LEFT kidney measuring 2.8 cm. Indeterminant tiny lesion along the upper pole LEFT kidney anteriorly measuring 11 mm with peripheral enhancement. Tiny pericardial effusion MR/MR abdomen wo/w con* [id number] IMPRESSION: 1. Enhancing hemangiomas in the liver dome and RIGHT hepatic lobe inferiorly u nchanged since the prior studies. The largest in the RIGHT hepatic lobe near th e dome the liver measuring 2.5 cm is unchanged. 2. Mild hepatomegaly with diffuse fatty infiltration of the liver. 3. Prior cholecystectomy. 4. Incidental renal cysts bilaterally largest in the RIGHT measuring 1.5 CM an d LEFT inferior pole measuring 2.8 cm. No hydronephrosis. 5. Indeterminant tiny lesion along the upper pole LEFT kidney anteriorly measu ring 11 mm with peripheral enhancement. This may represent a complex hemorrhagi c cyst however tiny renal neoplasm not entirely excluded. Recommend 6-12 month follow-up with MRI without and with gadolinium enhancement. This appears stable since the CT in 2018. This is likely too small to characterize on ultrasound. 6. Tiny pericardial effusion.
[2022-02-26] MEDS: gadobenate dimeglumine 20 mL vial IV (10:48)
== END 2022-02-26 08:40 | disposition home or self-care (01) ==
LOC: RAD 08:41
PROVIDERS: PCP Internal Medicine; Visit Provider Internal Medicine
DX: R93.5 Abnormal findings on diagnostic imaging of other abdominal regions, including retroperitoneum (principal)
CPT/HCPCS: 74183

== ENCOUNTER → 2022-03-06 09:55 | Outpatient (BNVA) | payer MEDICARE, MEDICAID, SELFPAY | PROVIDERS: PCP Internal Medicine; Visit Provider Physician Assistant | DX: Z47.89 Encounter for other orthopedic aftercare (principal); Z98.890 Other specified postprocedural states | CPT/HCPCS: 99024 ==

== ENCOUNTER → 2022-03-07 08:07 | Outpatient (BNVA) | payer MEDICARE, MEDICAID, SELFPAY | PROVIDERS: PCP Internal Medicine; Visit Provider Otolaryngology | DX: H66.93 Otitis media, unspecified, bilateral (principal); H72.93 Unspecified perforation of tympanic membrane, bilateral; F17.210 Nicotine dependence, cigarettes, uncomplicated | CPT/HCPCS: 99212 ==

== ENCOUNTER → 2022-03-12 08:13 | Outpatient (BNVA) | payer MEDICARE, MEDICAID, SELFPAY | PROVIDERS: PCP Internal Medicine; Visit Provider Nurse Practitioner Family | DX: R31.29 Other microscopic hematuria (principal); R82.81 Pyuria; N39.41 Urge incontinence; N28.1 Cyst of kidney, acquired | CPT/HCPCS: 81003; 87086; 88112; 99213 ==

== ENCOUNTER → 2022-04-16 09:18 | Outpatient (BNVA) | payer MEDICARE, MEDICAID, SELFPAY | PROVIDERS: PCP Internal Medicine; Visit Provider Nurse Practitioner Family | DX: R31.29 Other microscopic hematuria (principal); N39.41 Urge incontinence; N28.1 Cyst of kidney, acquired; R82.81 Pyuria | CPT/HCPCS: 81003; 87086; 99213 ==

== ENCOUNTER → 2022-06-06 08:24 | Outpatient (BNVA) | payer MEDICARE, MEDICAID, SELFPAY | PROVIDERS: PCP Internal Medicine; Visit Provider Otolaryngology | DX: H66.93 Otitis media, unspecified, bilateral (principal); H72.93 Unspecified perforation of tympanic membrane, bilateral; F17.210 Nicotine dependence, cigarettes, uncomplicated; Z86.16 Personal history of COVID-19 | CPT/HCPCS: 99213 ==

== ENCOUNTER → 2022-06-18 10:30 | Outpatient (BNVA) | payer MEDICARE, MEDICAID, SELFPAY | PROVIDERS: PCP Internal Medicine; Visit Provider Otolaryngology | DX: H66.93 Otitis media, unspecified, bilateral (principal); F17.210 Nicotine dependence, cigarettes, uncomplicated | CPT/HCPCS: 99213 ==

== ENCOUNTER → 2022-06-19 10:16 | Outpatient (BNVA) | payer MEDICARE, MEDICAID, SELFPAY | PROVIDERS: PCP Internal Medicine; Visit Provider Urology | DX: R31.29 Other microscopic hematuria (principal); N39.41 Urge incontinence; N28.1 Cyst of kidney, acquired | CPT/HCPCS: 81003; 99213 ==

== ENCOUNTER 2022-10-17 09:46 | Outpatient (CLI) | payer MEDICARE, MEDICAID, SELFPAY ==
--- NOTE | 2022-10-17 10:02 | CT_ITS ---
WS: [id number] CT CHEST WITH INTRAVENOUS CONTRAST HISTORY: PULMONARY NODULE TECHNIQUE: Contiguous 5 mm axial imaging performed on the thorax. Coronal and sagittal reformats are submitted. All CT scans at [facility] use at least one of these dose optimization techniques: automated exposure control; mA and/or kV adjustment per patient size (includes targeted exams where dose is matched to clinical indication); or iterative reconstruction. CONTRAST: Omnipaque 350; 100 mL IV. DLP: 532.69 mGy.cm COMPARISON: 07/22/2021, 08/15/2020 and 12/08/2015 Lungs and central airway: Mild pulmonary hyperinflation. Noncalcified well-circumscribed nodule in th e RIGHT upper lobe reidentified measuring 8.7 mm. No increase in size or new nodules. Mild centrilobu lar emphysema. Pleura: Normal. No pleural effusion. Heart and pericardium: Normal size. There is moderate pericardial thickening or fluid which is simila r to prior studies. Mediastinum and tiffany: No mediastinum or hilar adenopathy. Vessels: Mild atherosclerosis aorta. No aneurysms. Normal size pulmonary artery. Chest wall and lower neck: Enlarged nodule LEFT thyroid extends substernal. Similar to prior studies. No increase in size or extent. Upper abdomen: Patient has known hepatic hemangiomas. The largest measures 1.5 cm adjacent to the RIG HT kidney. Splenic granulomata. No adrenal mass. Osseous structures: Slight increase in thoracic kyphosis. CT/CT chest w con* [id number] IMPRESSION: 1. Stable noncalcified 8.7 mm RIGHT upper lobe pulmonary nodule since 08/15/20. Likely benign due to long-term stability. The fact that it was mildly posit shaneka on PET/CT is of minimal concern. Low-grade neoplasm may undergo very slow g rowth. Consider yearly noncontrast chest CT evaluation as an option. 2. Chronic emphysema. 3. Hepatic hemangiomas.
[2022-10-17 10:32] LABS: Blood Urea Nitrogen 14 mg/dL (8-23); Glomerular Filtration Rate 62.6 mL/min (90-130)
[2022-10-17] MEDS: iohexol 350 mg/mL 500 mL Btl (per mL) IV (10:33)
== END 2022-10-17 09:47 | disposition home or self-care (01) ==
LOC: RAD 09:49
PROVIDERS: PCP Internal Medicine; Visit Provider Internal Medicine
DX: R91.1 Solitary pulmonary nodule (principal)
CPT/HCPCS: 71260; 82565; 84520; Q9967

== ENCOUNTER 2023-01-23 11:54 | Outpatient (CLI) | payer MEDICARE, MEDICAID, SELFPAY ==
--- NOTE | 2023-01-23 12:07 | XRR_ITS ---
PROCEDURE INFORMATION: Exam: XR Bilateral Hips Exam date and time: 01/23/2023 12:29 PM Age: 67 years old Clinical indication: Hip pain; Bilateral; Additional info: Pain in right hip, pain in left hip TECHNIQUE: Imaging protocol: Radiologic exam of the bilateral hips. Views: 2 views of hips with pelvis when performed. COMPARISON: CR XR hip LT 2-3V wo/w pel* [id number] 07/09/2019 12:44 PM FINDINGS: Bones/joints: Unremarkable. No acute fracture. Soft tissues: Unremarkable. XR/XR hip BI m 5V wo/w pel* [id number] IMPRESSION: No acute bone abnormality of the bilateral hips
== END 2023-01-23 11:55 | disposition home or self-care (01) ==
LOC: RAD 11:59
PROVIDERS: PCP Internal Medicine; Visit Provider Internal Medicine
DX: M25.551 Pain in right hip (principal); M25.552 Pain in left hip
CPT/HCPCS: 73522; 73523

== ENCOUNTER 2023-02-11 13:01 | Outpatient (CLI) | payer MEDICARE, MEDICAID, SELFPAY ==
--- NOTE | 2023-02-11 13:17 | XR_ITS ---
WS: [email or web address] SCREENING DEXA SCAN [employer] CLINICAL INFORMATION: ASYMPTOMATIC POSTMENOPAUSAL STATUS COMPARISON: None. FINDINGS: The L1-L4 bone mineral density measures 1.163 g/cm2. This corresponds to a T score score of -0.1 and Z score of 0.3. Left femoral neck bone mineral density measures 1.075 g/cm2. This corresponds to a T score of 0.5 and Z score of 1.0. Right femoral neck bone mineral density measures 1.041 g/cm2. This corresponds to a T score 0.3of and Z score of 0.7. Mean femoral neck bone mineral density measures 1.058 g/cm2. This corresponds to a T score of 0.4 and Z score of 0.8. XR/XR DEXA axial skeleton* [id number] IMPRESSION: Normal bone mineralization. Patient's FRAX calculated 10 year probability for major osteoporotic fracture i s 7.1 % and osteoporotic hip fracture is 0.8%.
== END 2023-02-11 13:02 | disposition home or self-care (01) ==
LOC: RAD 13:04
PROVIDERS: PCP Internal Medicine; Visit Provider Internal Medicine
DX: Z13.820 Encounter for screening for osteoporosis (principal); Z78.0 Asymptomatic menopausal state
CPT/HCPCS: 77080

== ENCOUNTER 2023-02-27 07:48 | Outpatient (CLI) | payer MEDICARE, MEDICAID, SELFPAY ==
--- NOTE | 2023-02-27 07:59 | MM_ITS ---
WS: [email or web address] VIEWS: MLO and CC views both breasts. 3D digital tomosynthesis is also included in this exam. Comparison made with prior exam of 03/30/2015, 02/11/2017, 07/01/2018, 10/01/2019, 01/26/2022.. Findings: There was no sign of mass, architectural distortion or suspicious calcification in either breast. Th e breasts are almost entirely fatty MM/[place] [id number] Impression: BI-RADS: 2-Benign finding. FOLLOW-UP: 1 Year Follow-up This mammogram was also analyzed by the Computer Aided Detection System R2 Imag e Meter Reader Inspector.
== END 2023-02-27 07:49 | disposition home or self-care (01) ==
PROVIDERS: PCP Internal Medicine; Visit Provider Internal Medicine
DX: Z12.31 Encounter for screening mammogram for malignant neoplasm of breast (principal)
CPT/HCPCS: 77063; 77067

== ENCOUNTER 2023-03-12 08:22 | Outpatient (CLI) | payer MEDICARE, MEDICAID, SELFPAY ==
--- NOTE | 2023-03-12 08:32 | CT_ITS ---
WS: [email or web address] CT NECK TECHNIQUE: Contrast-enhanced CT of the neck with coronal and sagittal reformatted images. CLINICAL INFORMATION: NONTOXIC SINGLE THYROID NODULE COMPARISON: None. DLP: 224.[address] scans at [facility] use at least one of these dose optimization techniques: automated e xposure control; mA and/or kV adjustment per patient size (includes targeted exams where dose is matc hed to clinical indication); or iterative reconstruction. FINDINGS: Multinodular lobulated LEFT thyroid. Substernal extension of the LEFT thyroid lobe. This corresponds to the findings on the recent parathyroid study. Numerous nodules involving the LEFT thyroid the larg est upper pole measuring 1.5 x 1.1 cm. Medial projecting upper thyroid nodule measuring 1.4 CM. Hete rogeneous nodular enlargement of the LEFT lower pole. Tiny nodule RIGHT superior thyroid gland which otherwise appears normal. Chronic appearing opacification mastoid air cells bilaterally with sclerosis. Soft tissue thickening in the middle ears bilaterally RIGHT greater than LEFT. Partial opacification RIGHT maxillary sinus w ith polyp or retention cyst measuring 3 to 3.5 cm. Paranasal sinuses partially visualized otherwise w ell aerated. Normal posterior nasopharynx. Normal parapharyngeal fat. Tongue base appears normal. No evidence of s upraglottic or glottic mass. Normal subglottic airway. Lung apices are well aerated. Parotid glands a re normal. Normal submandibular glands. A few prominent bilateral cervical chain lymph nodes largest LEFT posterior triangle deep to the sternocleidomastoid measuring 10 mm in short axis dimension. LEFT jugulodigastric lymph node measuring 12 mm within normal limits. These may be reactive but nonspecif ic. This can be followed up with contrast-enhanced CT neck.. Moderate spondylitic changes cervical spine with straightening of the normal cervical lordosis. IMPRESSION: 1. Multinodular lobulated enlarged LEFT thyroid lobe with substernal extension. Heterogeneous and lo w-attenuation LEFT thyroid nodules largest measuring 1.1 x 1.5 cm upper lobe. Heterogeneous enlargeme nt of the LEFT lower pole. This can be further evaluated ultrasound. 2. Retroglottic medially projecting 1.4 cm LEFT upper thyroid nodule. 3. Prominent LEFT greater than RIGHT cervical chain lymph nodes the largest LEFT jugulodigastric danica suring 12 mm short axis dimension within normal limits and prominent LEFT posterior triangle lymph no de posterior to the sternocleidomastoid measuring 10 mm in short axis dimension. These may be reactiv e but nonspecific. Consider 3 month contrast-enhanced neck CT follow-up. 4. Chronic opacification mastoid air cells with sclerosis. Chronic appearing opacification RIGHT gre ater than LEFT middle ears. 5. Partial opacification of the RIGHT maxillary sinus with polyp or retention cyst measuring 3.5 x 3 .0 cm
[2023-03-12 09:08] LABS: Blood Urea Nitrogen 20 mg/dL (8-23); Glomerular Filtration Rate 71.8 mL/min (90-130)
[2023-03-12] MEDS: iohexol 350 mg/mL 500 mL Btl (per mL) IV (09:14)
== END 2023-03-12 08:23 | disposition home or self-care (01) ==
PROVIDERS: PCP Internal Medicine; Visit Provider Specialist
DX: E04.1 Nontoxic single thyroid nodule (principal); E04.2 Nontoxic multinodular goiter; H74.8X3 Other specified disorders of middle ear and mastoid, bilateral; J34.89 Other specified disorders of nose and nasal sinuses
CPT/HCPCS: 70491; 82565; 84520; Q9967

== ENCOUNTER 2023-03-28 12:23 | Outpatient (CLI) | payer MEDICARE, MEDICAID, SELFPAY ==
--- NOTE | 2023-03-28 12:39 | XR_ITS ---
WS: [email or web address] EXAMINATION: XR lumbar spine min 4V [id number] REASON FOR EXAM: NERVE PAIN/SPINAL STENOSIS,LUMBOSACRAL REGION COMPARISON: None available. ORDER DATE: 03/28/2023 12:48 PM FINDINGS: Generalized degenerative spinal changes are seen including moderate degenerative endplate changes and marginal osteophytes. There is moderate of L3-4 disc space. There is no evidence of acute compressio n deformities or spondylolisthesis. Atherosclerotic vascular calcification noted in the aortoiliac ve ssels XR/XR lumbar spine min 4V [id number] IMPRESSION: MODERATE DEGENERATIVE SPINE CHANGE AND SPONDYLOSIS.
== END 2023-03-28 12:24 | disposition home or self-care (01) ==
PROVIDERS: PCP Internal Medicine; Visit Provider Nurse Practitioner Family
DX: M48.07 Spinal stenosis, lumbosacral region (principal); M47.816 Spondylosis without myelopathy or radiculopathy, lumbar region; M25.78 Osteophyte, vertebrae
CPT/HCPCS: 72110

== ENCOUNTER 2023-04-10 15:12 | Outpatient (CLI) | payer MEDICARE, MEDICAID, SELFPAY ==
--- NOTE | 2023-04-10 15:21 | MR_ITS ---
WS: [email or web address] MRI LUMBAR SPINE NONCONTRAST HISTORY: LUMBOSACRAL REGION SPINAL STENOSIS COMPARISON: 11/01/2021 TECHNIQUE: Sagittal and axial multisequence imaging is submitted. L3 retrolisthesis by 3 mm. L2 retrolisthesis by 2 mm. The remaining alignment is normal. Reactive mar row edema within the adjacent endplates of L3 and L4. Disc spaces are narrowed throughout and desiccated. Conus terminates normally at Conus tapers and terminates normally at L1.. L1-L2: Mild annular disc bulging and facet arthritis. Very slight right foraminal narrowing. L2-L3: Mild bilateral facet joint arthritis and ligamentum flavum arthritis with fluid in the facet j oints. Similar to the prior study. L3-L4: Diffuse annular disc bulge. There is a large central to right paracentral and subarticular rec ess disc extrusion. Disc extends below the disc level into the subarticular recesses. Mass effect and deformity of the thecal sac and the nerve roots. This disc was present also on the prior examination . Persistent central, bilateral subarticular recess and foraminal stenosis. Complete effacement of fa t in the foramina bilaterally but greatest on the right. Postsurgical changes are noted at this level which are probably related to a right hemilaminectomy defect. L4-L5: Diffuse annular disc bulging encroaching upon the ventral thecal sac. Moderate ligamentum flav um and facet arthritis. Moderate central, bilateral subarticular recess and foraminal stenosis. There is disc contacting the L4 and L5 nerve roots. The stenosis appears to very slightly progressed since the prior study. Increasing fluid in the facet joints. L5-S1: Mild annular disc bulging no disc protrusions. Mild facet joint arthropathy. Incompletely visualized cystic-appearing mass in the left kidney. IMPRESSION: 1. L3-4: Large central to right paracentral and subarticular disc extrusion similar to the prior stud y. Causing significant mass effect upon the thecal sac and nerve roots. Greatest involvement on the r ight. Significant central, bilateral subarticular recess and foraminal stenosis. Postsurgical changes are noted on the right suggestive of an hemilaminectomy defect. 2. L4-5: Moderate central, bilateral subarticular recess and foraminal stenosis with the disc contact ing the L4 and L5 nerve roots. 3. Mild retrolisthesis of L2 and L3.
== END 2023-04-10 15:13 | disposition home or self-care (01) ==
PROVIDERS: PCP Internal Medicine; Visit Provider Internal Medicine
DX: M48.07 Spinal stenosis, lumbosacral region (principal); M51.37 Other intervertebral disc degeneration, lumbosacral region
CPT/HCPCS: 72148

== ENCOUNTER 2023-04-16 08:49 | Outpatient (CLI) | payer MEDICARE, MEDICAID, SELFPAY ==
--- NOTE | 2023-04-16 08:55 | US_ITS ---
WS: [email or web address] US pelvic complete* [id number] HISTORY: R PELVIC PAIN COMPARISON: None available. Prior hysterectomy and bilateral oophorectomy. No midline mass. No adnexal mass or fluid. IMPRESSION: Status post hysterectomy. No pelvic masses identified.
--- NOTE | 2023-04-16 08:55 | US_ITS ---
WS: [id number] Complete ABDOMINAL ULTRASOUND HISTORY: RLQ ABD PAIN COMPARISON: 06/08/2021 Liver: 19.6 cm in length. Multiple hepatomegaly and hepatic steatosis. No mass. Portal Vein: Normal hepatopetal flow with monophasic waveform. Gallbladder: Prior cholecystectomy. CBD: 0.5 cm Pancreas: Normal size and echogenicity. Right kidney: 12.3 cm x 4.9 x 5.2 cm. Cortex:1.2 cm. Normal size and echogenicity. No hydronephrosis or mass. Left kidney: 11.7 cm x 6.8 cm x 5.4 cm. Cortex: 1.5 cm. Normal size kidney. No hydronephrosis. Simple cyst lower pole 3.6 x 3.6 x 2.5 cm. No solid mass. Spleen: Normal size, 10 cm in length. Granulomata. Aorta and IVC: Mild atherosclerosis. Impression: 1. Prior cholecystectomy. 2. Simple left renal cyst lower pole. Maximum diameter of 3.6 cm. 3. Mild hepatic steatosis and hepatomegaly. Similar to the prior study from 06/08/2021.
== END 2023-04-16 08:50 | disposition home or self-care (01) ==
PROVIDERS: PCP Internal Medicine; Visit Provider Nurse Practitioner Family
DX: R10.2 Pelvic and perineal pain (principal); Z90.710 Acquired absence of both cervix and uterus; R10.31 Right lower quadrant pain; Z90.49 Acquired absence of other specified parts of digestive tract; N28.1 Cyst of kidney, acquired; K76.0 Fatty (change of) liver, not elsewhere classified; R16.0 Hepatomegaly, not elsewhere classified
CPT/HCPCS: 76700; 76830; 76856

== ENCOUNTER → 2023-05-02 10:00 | Outpatient (BNVA) | payer MEDICARE, MEDICAID, SELFPAY | PROVIDERS: PCP Internal Medicine; Visit Provider Orthopaedic Surgery | DX: M48.062 Spinal stenosis, lumbar region with neurogenic claudication | CPT/HCPCS: 99214 ==

== ENCOUNTER 2023-05-07 08:55 | Outpatient (CLI) | payer MEDICARE, MEDICAID, SELFPAY ==
--- NOTE | 2023-05-07 09:07 | NM_ITS ---
WS: [id number] EXAMINATION: NM parathyroid [id number] ORDER DATE: 05/07/2023 9:07 AM COMPARISON: Nuclear medicine 02/12/[address] neck 03/12/2023 HISTORY: Nontoxic single thyroid nodule TECHNIQUE: Parathyroid scintigraphy with 18.3 mCi of Tc 99m sestamibi administered. AP and oblique views obtained with and without chin and suprasternal notch markers. Initial and 2 hour delayed imagi ng acquired. FINDINGS: Previous CT demonstrated an enlarged multinodular lobulated thyroid more prominent on the LEFT. Diffu se homogeneous radiotracer uptake in the LEFT greater than RIGHT thyroid lobes. LEFT thyroid appears persistently enlarged similar to the prior neck CT. Slightly decreased activity in the LEFT lower elizabeth e thyroid similar to the prior examination 02/12/2022. This could be followed up with ultrasound thyro id. On the delayed imaging, no persistent retained activity to indicate parathyroid adenoma. IMPRESSION: 1. No evidence of parathyroid adenoma. 2. Slightly decreased activity in the LEFT lower pole thyroid similar to the prior examination 2021. This could be followed up with ultrasound thyroid.
== END 2023-05-07 08:56 | disposition home or self-care (01) ==
LOC: RAD 08:55
PROVIDERS: PCP Internal Medicine; Visit Provider Specialist
DX: E04.1 Nontoxic single thyroid nodule (principal)
CPT/HCPCS: 78070; A9500

== ENCOUNTER → 2023-06-24 10:32 | Outpatient (BNVA) | payer MEDICARE, MEDICAID, SELFPAY | PROVIDERS: PCP Internal Medicine; Visit Provider Anesthesiology Pain Medicine | DX: M48.062 Spinal stenosis, lumbar region with neurogenic claudication (principal); M51.16 Intervertebral disc disorders with radiculopathy, lumbar region; M43.16 Spondylolisthesis, lumbar region | CPT/HCPCS: 99204 ==

== ENCOUNTER → 2023-07-08 13:43 | Outpatient (BNVA) | payer OTHER, MEDICAID, SELFPAY | PROVIDERS: PCP Internal Medicine; Visit Provider Anesthesiology Pain Medicine | DX: M54.16 Radiculopathy, lumbar region (principal); M48.062 Spinal stenosis, lumbar region with neurogenic claudication | CPT/HCPCS: 64483; 64484; J1100; J3490 ==

== ENCOUNTER → 2023-07-29 12:58 | Outpatient (BNVA) | payer OTHER, MEDICAID, SELFPAY | PROVIDERS: PCP Internal Medicine; Visit Provider Anesthesiology Pain Medicine | DX: M54.16 Radiculopathy, lumbar region (principal); M48.062 Spinal stenosis, lumbar region with neurogenic claudication | CPT/HCPCS: 64483; 64484; J1100; J3490 ==

== ENCOUNTER → 2023-08-12 08:50 | Outpatient (BNVA) | payer OTHER, MEDICAID, SELFPAY | PROVIDERS: PCP Internal Medicine; Visit Provider Anesthesiology Pain Medicine | DX: M48.062 Spinal stenosis, lumbar region with neurogenic claudication (principal); M51.16 Intervertebral disc disorders with radiculopathy, lumbar region | CPT/HCPCS: 99213 ==

== ENCOUNTER 2023-09-07 09:48 | Emergency (ER) | payer OTHER, MEDICAID, SELFPAY ==
[2023-09-07] VITALS (7 sets, daily range): BP systolic 106–124; BP diastolic 65–84; PULSE 72–91; RESP 16; TEMP 36.6; O2SAT 90–95; BMI 35.6
--- NOTE | 2023-09-07 09:52 | ECG_ITS ---
[facility] Test Date: 2023-09-07 Pat Name: Anson Cheney Department: Room: Gender: Female Item Processor: : 1955 Requested By: Soheila Kahn Order Number: [id number] Anil MD: Fred Jalloh M.D. Measurements Intervals [place] Rate: 83 P: 74 [place]: 152 QRS: 171 QRSD: 86 T: 84 QT: 322 QTc: 380 Interpretive Statements SINUS RHYTHM INDETERMINATE AXIS POSSIBLE RIGHT VENTRICULAR HYPERTROPHY [SOME/ALL OF: PROMINENT R IN V1, LATE TRANSITION, RAD, BETSY, SSS] Compared to ECG 12/07/2021 11:30:44 No significant changes Electronically Signed On 09-08-2023 16:27:12 CATERING TRUCK DRIVER by Fred Jalloh M.D. [id number]
--- NOTE | 2023-09-07 09:52 | XRR_ITS ---
PROCEDURE INFORMATION: Exam: XR Chest Exam date and time: 09/07/2023 10:47 AM Age: 68 years old Clinical indication: Shortness of breath; Additional info: SOB TECHNIQUE: Imaging protocol: Radiologic exam of the chest. Views: 1 view. COMPARISON: 1. CT chest w con* [id number] 10/17/2022 10:34 AM 2. Portable chest 12/24/2020 FINDINGS: Lungs: See Heart/Mediastinum finding. Pleural spaces: No large or obvious pneumothorax nor pleural effusion seen. Heart/Mediastinum: Heart size appears within normal. Interval development of lobular opacities projecting over right side of mediastinum, right paratracheal, right hilum compatible with mass, masslike process, lymphadenopathy, or other process. Bones/joints: Degenerative changes spine. XR/XR chest 1V portable [id number] IMPRESSION: Interval development of lobular opacities projecting over right side of mediastinum, right paratracheal, right hilum compatible with mass, masslike process, lymphadenopathy, or other process.
--- NOTE | 2023-09-07 09:58 | ECG_ITS ---
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 Measurements Intervals [place] Rate: 86 P: 119 RI: 141 QRS: 79 QRSD: 76 T: 129 QT: 324 QTc: 389 Interpretive Statements SINUS RHYTHM POSSIBLE LATERAL MYOCARDIAL INFARCTION , OF INDETERMINATE AGE [30 ms Q WAVE IN I/aVL/V5/V6] Compared to ECG 12/07/2021 11:30:44 Myocardial infarct finding now present Indeterminate axis no longer present Electronically Signed On 09-09-2023 10:55:09 ACID BATH MIXER by Fred Jalloh M.D. [email or web address] [email or web address].[email or web address]/store/[id number] f
--- NOTE | 2023-09-07 10:10 | ED_ITS ---
HPI - COVID 2 General: Chief Complaint: COVID symptoms Stated Complaint: chest pain Time Seen by Provider: 09/07/23 10:05 Source: patient Mode of arrival: ambulatory Limitations: no limitations History of Present Illness: 68-year-old female who has a long histor y of COPD states she has had cough congestion since July. She states she just finished antibiotics and steroids this week and is continue to have a slight cough along with some right- sided chest pain. States pain is sharp in nature and much worse with her cough and movement. COVID 19 common symptoms: positive non-productive cough; negative fever(s), chills, dyspnea, body aches, headache(s), throat pain, nausea, vomiting or diarrhea COVID 19 other sytmptoms: positive chest pain COVID Results: 2 SARS-CoV-2 Antigen (Rapid) Negative (Negative) 09/07/23 11:20 Nasal/Oral Coronavirus 2019 PCR Not detected 10/07/20 13:24 Review of Systems 2 Const: Denies: fever(s), chills, body aches or change in appetite ENMT: Denies: throat pain or dental pain Card: Reports: chest pain Resp: Reports: non-productive cough; Denies: dyspnea GI: Denies: abdominal pain, nausea, vomiting or diarrhea : Denies: dysuria Musc: Denies: neck pain or back pain Skin/Breast: Denies: rash Neuro: Denies: headache(s) PFSH ED 2 PFSH: Medical History Hematuria COVID-19 Hyperlipidemia Hypothyroidism Surgical History History of back surgery History of lymph node excision History of colonoscopy S/P cholecystectomy S/P hysterectomy Family History Sister , at age 62 Cancer LUNG Mother , AGE78 Diabetes Cancer Ovarian Father , at age 78 CAD (coronary artery disease) Heart attack Social History Smoking and tobacco/nicotine status: current every day tobacco/nicotine user (2 packs a day ) cigarettes Packs smoked per day: 2 Years cigarettes smoked: 46 Quit status (tobacco/nicotine): considering quitting Second hand smoke exposure: Yes Alcohol intake: never Substance/Drug Use: never Lives independently: Yes Household members: family and children Housing: House Marital status: / service: No Current occupational status: disabled Pets and animals: Yes Do you think of yourself as: Straight/Heterosexual Current gender identity: Female Physical Exam 2 Const: COMMON NORMALS: no acute distress, patient oriented x3 and healthy appearing HENMT: COMMON NORMALS: normocephalic and atraumatic HEAD & SCALP: n ormocephalic and atraumatic Neck/C-Spine: COMMON NORMALS: full ROM and supple Chest: COMMONS NORMALS: normal inspection of the chest Resp: COMMON NORMALS: normal respiratory effort, No retractions, No use of accessory muscles and clear to auscultation bilaterally AUSCULTATION: clear to auscultation bilaterally Cardio: COMMON NORMALS: regular rate, regular rhythm and No murmurs present (Cardio) RATE: regular rate RHYTHM: regular rhythm GI: COMMON NORMALS: Normal to inspection, nondistended, normoactive bowel sounds present, Soft to palpation, non-tender and no masses PALPATION: Yes Soft to palpation Extremity: COMMON NORMALS: normal to inspection and full ROM Neuro: COMMON NORMALS: patient oriented x3, moves all extremities and no focal motor deficits Psych: COMMON NORMALS: mental status grossly normal, Normal thought process present and cooperative THOUGHT PROCESS: Normal thought process present Skin: COMMON NORMALS: no rashes or lesions noted and no wounds GENERAL SKIN EXAM: no rashes or lesions noted Course 2 Vital Signs: Vital signs: Vital Signs Temperature 97.9 F 09/07/23 10:00 Pulse Rate 76 09/07/23 11:00 Respiratory Rate 16 09/07/23 10:49 Blood Pressure 118/83 09/07/23 11:00 Pulse Oximetry 90 09/07/23 11:00 Oxygen Delivery Me thod Room Air 09/07/23 11:00 MDM - COVID Medical Decision Making Patient presents here with dyspnea likely from her COPD I did inform her of x- ray findings and that she needs an outpatient CT of her chest through her PCP to evaluate for malignancy we will get her follow-up with pulmonology as well she has a long history of COPD she is to return if worsening she understands agrees to plan. Medical Records I reviewed the patient's medical records. Lab Data I reviewed the patient's lab results. 09/07/23 10:21 09/07/23 10:21 Radiology Impressions Chest X-Ray 09/07/23 09:52 IMPRESSION: Interval development of lobular opacities projecting over right side of mediastinum, right paratracheal, right hilum compatible with mass, masslike process, lymphadenopathy, or other process. Laboratory Results WBC 13.37 10^3/uL (3.29-11.43) H 09/07/23 10:21 RBC 5.60 10^6/uL (3.85-5.65) 09/07/23 10:21 Hgb 15.30 g/dL (11.27-16.99) 09/07/23 10:21 Hct 46.1 % (36-47) 09/07/23 10:21 MCV 82.3 fl (85-98) L 09/07/23 10:21 MCH 27.3 pg (27-33) 09/07/23 10:21 MCHC 33.2 g/dL (30-55) 09/07/23 10:21 RDW 14.0 % (12.1-15.1) 09/07/23 10:21 Plt Count 149 10^3/cmm (157-399) L 09/07/23 10:21 MPV 10.6 fL (7.4-10.4) H 09/07/23 10:21 Neut % (Auto) 61.4 % 09/07/23 10:21 Lymph % (Auto) 27.4 % 09/07/23 10:21 [place] % (Auto) 4.6 % 09/07/23 10:21 Eos % (Auto) 3.2 % 09/07/23 10:21 Baso % (Auto) 0.6 % 09/07/23 10:21 Neut # (Auto) 8.20 10^3/uL (1.8-7.7) H 09/07/23 10:21 Lymph # (Auto) 3.7 10^3/uL (0.8-4.8) 09/07/23 10:21 [place] # (Auto) 0.6 10^3/uL (0.2-0.9) 09/07/23 10:21 Eos # (Auto) 0.4 10^3/uL (0.0-0.8) 09/07/23 10:21 Baso # (Auto) 0.1 10^3/uL (0.0-0.1) 09/07/23 10:21 Nucleated RBC % (auto) 0.1 % 09/07/23 10:21 Nucleated RBCs # 0.0 /100WBC 09/07/23 10:21 PT 13.50 SECONDS (12.1-14.9) 09/07/23 10:21 INR 1.00 (0.8-1.2) 09/07/23 10:21 Sodium 138 mmol/L (136-145) 09/07/23 10:21 Potassium 4.6 mmol/L (3.5-5.1) 09/07/23 10:21 Chloride 100 mmol/L (98-107) 09/07/23 10:21 Carbon Dioxide 24 mmol/L (22-29) 09/07/23 10:21 Anion Gap 18.6 (5-19) 09/07/23 10:21 BUN 15 mg/dL (8-23) 09/07/23 10:21 Creatinine 0.8 mg/dL (0.5-0.9) 09/07/23 10:21 GFR Calculation 71.5 mL/min (90-130) L 09/07/23 10:21 Glucose 107 mg/dL (65-115) 09/07/23 10:21 Calculated Osmolality 287 mOsm/kg (285-295) 09/07/23 10:21 Calcium 11.7 mg/dL (8.5-10.5) H 09/07/23 10:21 Total Bilirubin 0.4 mg/dL (0.15-1.2) 09/07/23 10:21 AST 29 U/L (0-32) 09/07/23 10:21 ALT 33 U/L (0-33) 09/07/23 10:21 Alkaline Phosphatase 197 U/L (35-105) H 09/07/23 10:21 Troponin T Baseline 10 ng/L (0-10) 09/07/23 10:21 Total Protein 6.9 g/dL (6.6-8.7) 09/07/23 10:21 Albumin 4.1 g/dL (3.5-5.2) 09/07/23 10:21 Globulin 2.8 g/dL (1.3-4.6) 09/07/23 10:21 Lipase 39 U/L (13-60) 09/07/23 10:21 Influenza Type A Ag Negative (Negative) 09/07/23 11:20 Influenza Type B Ag Negative (Negative) 09/07/23 11:20 SARS-CoV-2 Ag (Rapid) Negative (Negative) 09/07/23 11:20 2 SARS-CoV-2 Antigen (Rapid) Negative (Negative) 09/07/23 11:20 Nasal/Oral Coronavirus 2019 PCR Not detected 10/07/20 13:24 All radiology interpretation(s) finalized by discharge Discharge Plan Discharge Patient Disposition: Home Clinical Impression: Chronic bronchitis Condition: Stable Prescriptions: No Action ergocalciferol (vitamin D2) [Vitamin D2] 1,250 mcg (50,000 unit) capsule 1,250 mcg PO DAILY gabapentin 300 mg capsule 300 mg PO BID budesonide-formoterol [Symbicort] 80-4.5 mcg/actuation HFA aerosol inhaler 2 puff inhalation BID albuterol sulfate [ProAir HFA] 90 mcg/actuation HFA aerosol inhaler 2 puff INHALATION Q6H PRN (Reason: sob) levothyroxine 50 mcg tablet 50 mcg PO DAILY aspirin [Aspir-81] 81 mg tablet,delayed release (DR/EC) 81 mg PO DAILY ipratropium-albuterol 0.5 mg-3 mg(2.5 mg base)/3 mL solution for nebulization 3 ml inhalation QID PRN (Reason: sob) oxycodone 5 mg tablet 5 - 10 mg PO Q4H PRN (Reason: pain) 7 Days Qty: 40 0RF levofloxacin 500 mg tablet 500 mg PO DAILY 30 Days Qty: 30 0RF Cipro HC 0.2-1 % drops,suspension 4 drp otic (ear) Q12H Qty: 10 11RF Rx Instructions: Apply 4 drops to right ear canal twice daily. Leave drops in ear for 5 minutes. cholecalciferol (vitamin D3) 25 mcg (1,000 unit) capsule 25 mcg PO BID Galzin 50 mg (zinc) capsule 50 mg PO BID levofloxacin 500 mg tablet 500 mg PO DAILY 15 Days Qty: 15 0RF ciprofloxacin-dexamethasone [Ciprodex] 0.3-0.1 % drops,suspension 4 drp otic (ear) BID Qty: 7.5 6RF Cipro HC 0.2-1 % drops,suspension 5 drp otic (ear) Q12H 30 Days Qty: 10 6RF prednisone 20 mg tablet 20 mg PO TID Qty: 15 0RF Rx Instructions: 1 p.o. 3 times daily x3 days, 1 p.o. twice daily x2 days, 1 p.o. daily x2 days tizanidine 4 mg capsule 4 mg PO Q8H PRN (Reason: muscle spasticity) Qty: 20 0RF rosuvastatin 10 mg tablet 10 mg PO Spiriva with HandiHaler 18 mcg capsule, w/inhalation device 18 mcg INHALATION Discharge Orders: Discharge ED (Routine); Ordered 09/07/23 Ordered By: Soheila Kahn Referrals: Faby Kumar MD [Primary Care Provider] - 1-3 days Datar,Shaggy Sierra MD [Physician] - 1-3 days Discharge Diet: Advance as tolerated Discharge Activity: Resume usual activity Patient Instructions: Acute Bronchitis (ED) Activity Restrictions/Additional Instructions: X-ray here did show a lung mass she needs an outpatient CT of her chest through your PCP to further evaluate Coding Level of Care Code ED Sales Utility Representative for Monik Lopez
[2023-09-07 10:34] LABS: Basophils # 0.1 10^3/uL (0.0-0.1); Basophils % 0.6 %; Eosinophils # 0.4 10^3/uL (0.0-0.8); Eosinophils % 3.2 %; Hematocrit 46.1 % (36-47); Lymphocytes # 3.7 10^3/uL (0.8-4.8); Lymphocytes % 27.4 %; Mean Corpuscular HGB Conc 33.2 g/dL (30-55); Mean Corpuscular Hemoglobin 27.3 pg (27-33); Mean Corpuscular Volume 82.3 fl (85-98); Mean Platelet Volume 10.6 fL (7.4-10.4); Monocytes # 0.6 10^3/uL (0.2-0.9); Monocytes % 4.6 %; Neutrophils % 61.4 %; Nucleated Red Blood Cells % 0.1 %; Platelet Count 149 10^3/cmm (157-399); White Blood Count 13.37 10^3/uL (3.29-11.43)
[2023-09-07 10:48] LABS: Troponin(5th) Baseline 10 ng/L (0-10)
[2023-09-07] MEDS: ipratropium-albuterol 3 mL Neb INHALATION (10:51)
[2023-09-07 10:52] LABS: Alanine Aminotransferase 33 U/L (0-33); Albumin Level 4.1 g/dL (3.5-5.2); Alkaline Phosphatase 197 U/L (35-105); Anion Gap 18.6 (5-19); Aspartate Amino Transferase 29 U/L (0-32); Blood Urea Nitrogen 15 mg/dL (8-23); Calcium 11.7 mg/dL (8.5-10.5); Carbon Dioxide 24 mmol/L (22-29); Chloride 100 mmol/L (98-107); Globulin 2.8 g/dL (1.3-4.6); Glomerular Filtration Rate 71.5 mL/min (90-130); Glucose 107 mg/dL (65-115); Lipase 39 U/L (13-60); Osmolality Calculated 287 mOsm/kg (285-295); Potassium 4.6 mmol/L (3.5-5.1); Sodium 138 mmol/L (136-145); Total Bilirubin 0.4 mg/dL (0.15-1.2); Total Protein 6.9 g/dL (6.6-8.7)
--- NOTE | 2023-09-07 11:52 | ECG_ITS ---
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 Measurements Intervals [place] Rate: 72 P: 52 MT: 161 QRS: 240 QRSD: 85 T: 58 QT: 359 QTc: 393 Interpretive Statements SINUS RHYTHM POSSIBLE LEFT ATRIAL ENLARGEMENT [-0.1mV P-WAVE IN V1/V2] INDETERMINATE AXIS LOW QRS VOLTAGE IN PRECORDIAL LEADS [QRS DEFLECTION < 1.0 mV IN CHEST LEADS] PATTERN CONSISTENT WITH PULMONARY DISEASE POSSIBLE RIGHT VENTRICULAR CONDUCTION DELAY [RSR (QR) IN V1/V2] Compared to ECG 09/07/2023 10:33:35 Low QRS voltage now present Electronically Signed On 09-09-2023 10:54:54 WEB PRESS OPERATOR by Fred Jalloh M.D. [id number]
[2023-09-07 12:00] LABS: Influenza A by IFA Negative (Negative); Influenza B by IFA Negative (Negative); SARS Covid-2 Antigen Negative (Negative)
--- NOTE | 2023-09-07 12:26 | PC.NURSE ---
DISCHARGE INSTRUCTIONS WERE BROUGHT INTO PATIENTS ROOM. THIS NURSE WAS EDUCATING THE PATIENT ON DISCHARGE INSTRUCTIONS, PT SON BECAME AGITATED. PT SON BEGAN TO RAISE HIS VOICE AT THIS NURSE STATING, IS THAT ALL YOU ARE GOING TO DO FOR HER? YOU GUYS DIDN'T DO ANYTHING. THIS NURSE ATTEMPTED TO DEESCALATE THE SITUATION VERBALLY. PT SON CONTINUED TO SPEAK IN A RAISED TONE TOWARDS THE NURSE. SECURITY OVERHEARD THE CONVERSATION AND STEPPED INTO THE ROOM. WHEN SECURITY ENTERED, THE PT SON BEGAN TO CALM DOWN AND LISTEN TO THE DISCHARGE INSTRUCTIONS FOR THE PT. PT WAS WHEELED OUT OF THE FACILITY AFTER RECEIVING THE DISCHARGE INSTRUCTIONS AND DENIED ANY FURTHER VERBALIZED CONCERNS OR COMPLAINTS.
--- NOTE | 2023-09-11 08:17 | DCPLANNER ---
Message sent to Pul for follow up on COPD
== END 2023-09-07 12:31 | disposition home or self-care (01) ==
PROVIDERS: Emergency Provider Emergency Medicine; PCP Internal Medicine
DX: J42 Unspecified chronic bronchitis (principal); Z79.82 Long term (current) use of aspirin; E78.5 Hyperlipidemia, unspecified; F17.210 Nicotine dependence, cigarettes, uncomplicated; Z11.52 Encounter for screening for COVID-19
CPT/HCPCS: 71045; 80053; 83690; 84484; 85025; 85610; 87426; 87804; 93005; 94640; 99285

== ENCOUNTER → 2023-09-11 15:21 | Outpatient (BNVA) | payer OTHER, MEDICAID, SELFPAY | PROVIDERS: PCP Internal Medicine; Visit Provider Specialist | DX: M17.0 Bilateral primary osteoarthritis of knee | CPT/HCPCS: 73560; 73565; 99204 ==

== ENCOUNTER 2023-09-16 09:38 | Outpatient (CLI) | payer OTHER, MEDICAID, SELFPAY ==
--- NOTE | 2023-09-16 09:47 | CT_ITS ---
WS: [id number] CT chest w con* [id number] HISTORY: COUGH,ABN XRAY TECHNIQUE: Axial imaging performed through the thorax. Coronal and sagittal reformats are submitted. All CT scans at [facility] use at least one of these dose optimization techniques: automated exposure control; mA and/or kV adjustment per patient size (includes targeted exams where dose is mat ched to clinical indication); or iterative reconstruction. CONTRAST: Omnipaque 350; 100 mL IV. DLP: 473.52 mGy.cm COMPARISON: CT chest 10/17/2022 and chest radiograph 09/07/2023. PET/CT 02/13/2020, MRI abdomen 02/26/2022 Lungs and central airway: Hyperinflated lungs from emphysema. Well-circumscribed 8 mm noncalcified no dule in the RIGHT upper lobe is reidentified and stable. This was noted to be minimally positive on a prior PET/CT. New RIGHT hilar mass partially encasing the RIGHT bronchovascular structures and exten ding along the RIGHT lower lobe proximal bronchus. This is most consistent with a large confluent lym phadenopathy. At the RIGHT hilum largest component of the mass measures 4.4 x 3.4 cm. There is additi onal interlobar adenopathy extending inferiorly into the RIGHT lower lobe. Lymph node posterior to th e RIGHT pulmonary vein. Abnormal subcarinal lymph node with a maximum diameter of 2.3 cm. RIGHT parat adis lymphadenopathy with the largest confluent mass measuring 2.3 x 3.8 cm. No LEFT hilar adenopa thy. Pleura: Normal. No pleural effusion. Heart and pericardium: Normal size heart. There is a small pericardial effusion which is more promine nt than on the prior examinations. Pericardial effusion measures up to 11 mm. Mediastinum and tiffany: See above lung/central airway description. Vessels: Mild atherosclerosis aorta. No aneurysm. Mildly enlarged pulmonary artery. Chest wall and lower neck: Subcentimeter LEFT thyroid nodule. Upper abdomen: Hepatic steatosis. Splenic granulomata. Enhancing mass in the superior pole the LEFT k idney measures 1.3 x 1.5 cm. There is an regional area incompletely visualized in the superior black and white printer operator ior LEFT kidney which needs further evaluation. This may be a complex cyst. No adrenal mass. Patient has known hepatic hemangioma which was at the previously described. Only a small portion of the heman gioma was included on this examination. Osseous structures: No destructive process. IMPRESSION: 1. RIGHT paratracheal, RIGHT hilar and interlobar lymphadenopathy. Suspicious for neoplastic process such as lymphoma. Recommend evaluation by bronchoscopy for sampling. 2. RIGHT upper lobe 8 mm nodule is unchanged over several prior examinations. Prior PET/CT demonstra guillermo minimal activity. 3. Previously described indeterminate but enhancing nodule superior pole LEFT kidney appears slightl y more prominent today. Maximum diameter 1.5 cm. Suspicious for renal cell neoplasm although indeterm inate due to small size. This may be a low-grade neoplasm. There is an additional abnormality incompl etely visualized in the LEFT kidney for which additional imaging should be obtained. Consider MRI jordan luation kidneys with and without contrast. 4. Small pericardial effusion as increased in size since 10/17/2022.
[2023-09-16] MEDS: iohexol 350 mg/mL 500 mL Btl (per mL) IV (10:33)
== END 2023-09-16 09:39 | disposition home or self-care (01) ==
LOC: RAD 09:38
PROVIDERS: PCP Internal Medicine; Visit Provider Internal Medicine
DX: R05.9 Cough, unspecified (principal); R93.89 Abnormal findings on diagnostic imaging of other specified body structures; R59.0 Localized enlarged lymph nodes; R91.1 Solitary pulmonary nodule; N28.9 Disorder of kidney and ureter, unspecified; J90 Pleural effusion, not elsewhere classified
CPT/HCPCS: 71260; Q9967

== ENCOUNTER → 2023-09-17 14:33 | Outpatient (BNVA) | payer OTHER, MEDICAID, SELFPAY | PROVIDERS: PCP Internal Medicine; Visit Provider Internal Medicine Pulmonary Disease | DX: R91.1 Solitary pulmonary nodule (principal); R91.8 Other nonspecific abnormal finding of lung field; J43.2 Centrilobular emphysema; J96.11 Chronic respiratory failure with hypoxia; G47.33 Obstructive sleep apnea (adult) (pediatric); F17.210 Nicotine dependence, cigarettes, uncomplicated; Z99.81 Dependence on supplemental oxygen; Z99.89 Dependence on other enabling machines and devices | CPT/HCPCS: 99214 ==

== ENCOUNTER 2023-09-19 10:30 | Inpatient (IN) | payer OTHER, MEDICAID, SELFPAY ==
[2023-09-19] VITALS (48 sets, daily range): BP systolic 105–142; BP diastolic 65–85; PULSE 95–129; RESP 16–30; TEMP 37.1–37.6; O2SAT 85–95; BMI 34.8; BMI 34.2
--- NOTE | 2023-09-19 11:01 | XR_ITS ---
WS: [id number] Exam: XR chest 1V portable [id number] Date/Time of Exam: 09/19/2023 11:29 AM Reason For Exam: Weakness Comparison 09/07/2023. Prominent RIGHT hilar mass noted with associated peripheral infiltrate. There is also probable wideni ng of the superior mediastinum on the RIGHT. Infiltrate extends into the RIGHT lower lobe. There are also scattered tiny nodular densities throughout both lungs which are nonspecific. No pneumothorax or pleural effusion. Bony structures are intact. IMPRESSION: 1. Large RIGHT hilar mass with possible postobstructive pneumonia. The appearance has worsened since the last exam. Also noted are scattered ill-defined tiny nodules throughout both lungs. These may rep resent granulomas however carcinomatosis of the lungs could have this appearance. 2. Probable mediastinal lymphadenopathy. Recommendations: Contrast CT scanning of the chest recommended for further work-up.
--- NOTE | 2023-09-19 11:09 | ECG_ITS ---
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 Measurements Intervals [place] Rate: 115 P: 63 LA: 157 QRS: 160 QRSD: 86 T: 74 QT: 290 QTc: 401 Interpretive Statements SINUS TACHYCARDIA PATTERN CONSISTENT WITH PULMONARY DISEASE POSSIBLE RIGHT VENTRICULAR HYPERTROPHY [SOME/ALL OF: PROMINENT R IN V1, LATE TRANSITION, RAD, BETSY, SSS] NON SPECIFIC ST T WAVE CHANGES Compared to ECG 09/07/2023 11:47:25 ST (T wave) deviation now present Sinus rhythm no longer present Indeterminate axis no longer present Electronically Signed On 09-19-2023 17:49:43 THERAPEUTIC DIETITIAN by Fred Jalloh M.D. [id number]
[2023-09-19] MEDS: sodium chloride 0.9% 1,000 ML 999 ML IV (11:32)
[2023-09-19 11:35] LABS: Basophils # 0.1 10^3/uL (0.0-0.1); Basophils % 0.6 %; Eosinophils # 0.1 10^3/uL (0.0-0.8); Eosinophils % 1.2 %; Hematocrit 39.9 % (36-47); Lymphocytes % 24.1 %; Mean Corpuscular HGB Conc 33.1 g/dL (30-55); Mean Corpuscular Volume 81.6 fl (85-98); Mean Platelet Volume 10.9 fL (7.4-10.4); Monocytes # 0.4 10^3/uL (0.2-0.9); Monocytes % 4.7 %; Neutrophils # 5.68 10^3/uL (1.8-7.7); Nucleated Red Blood Cells % 0.5 %; Platelet Count 157 10^3/cmm (157-399); Red Blood Count 4.89 10^6/uL (3.85-5.65); Red Cell Distribution Width 14.5 % (12.1-15.1); White Blood Count 8.47 10^3/uL (3.29-11.43)
[2023-09-19 11:50] LABS: Glucose Point of Care 101 mg/dL (70-110)
[2023-09-19 12:01] LABS: Alanine Aminotransferase 27 U/L (0-33); Albumin Level 3.3 g/dL (3.5-5.2); Alkaline Phosphatase 381 U/L (35-105); Blood Urea Nitrogen 21 mg/dL (8-23); Carbon Dioxide 27 mmol/L (22-29); Chloride 95 mmol/L (98-107); Globulin 3.8 g/dL (1.3-4.6); Glomerular Filtration Rate 62.5 mL/min (90-130); Glucose 105 mg/dL (65-115); Osmolality Calculated 279 mOsm/kg (285-295); Sodium 133 mmol/L (136-145); Thyroid Stimulating Hormone 3.91 uIU/mL (0.27-4.20); Total Bilirubin 0.5 mg/dL (0.15-1.2); Total Protein 7.1 g/dL (6.6-8.7)
[2023-09-19 12:03] LABS: Anion Gap 16.1 (5-19); Potassium 5.1 mmol/L (3.5-5.1)
[2023-09-19 12:04] LABS: Aspartate Amino Transferase 45 U/L (0-32)
--- NOTE | 2023-09-19 13:05 | ED_ITS ---
HPI - Altered Mental Status 2 General: Chief Complaint: ER Hold Stated Complaint: sent from dr rekha ponce Time Seen by Provider: 09/19/23 11:00 History of Present Illness: 68-year-old female presents emergency de partment at the request of her primary care provider. The patient's family is at her bedside they state that she has had increased shortness of breath as well as fatigue and now difficulty walking for several weeks. Patient was seen here in the ER on September 07, 2023 and was diagnosed with a lung mass concerning for lymphoma. The family member state that the patient was scheduled for a bronchoscopy with biopsy of the lung mass next week but states that the patient's primary care provider Dr. Rios had contacted them and advised them that the patient's calcium level was elevated and to come to the emergency department for additional evaluation and possible admission. Review of Systems 2 General: Reports: 10 or more systems reviewed and unremarkable except in HPI and below Const: Reports: fatigue and malaise Neuro: Reports: weakness in extremities and difficulty walking PFSH ED 2 PFSH: Medical History Hematuria COVID-19 Hyperlipidemia Hypothyroidism Surgical History History of back surgery History of lymph node excision History of colonoscopy S/P cholecystectomy S/P hysterectomy Family History Sister , at age 62 Cancer LUNG Mother , AGE78 Diabetes Cancer Ovarian Father , at age 78 CAD (coronary artery disease) Heart attack Social History Smoking and tobacco/nicotine status: current every day tobacco/nicotine user (2 packs a day ) cigarettes Packs smoked per day: 2 Years cigarettes smoked: 47 [ Other cigarette details: Started at age 22] Quit status (tobacco/nicotine): considering quitting Second hand smoke exposure: Yes Alcohol intake: never Substance/Drug Use: never Lives independently: Yes Household members: family and children Housing: House Marital status: / service: No Current occupational status: disabled Pets and animals: Yes Do you think of yourself as: Straight/Heterosexual Current gender identity: Female Physical Exam 2 Narrative: Constitutional: the patient appears well nourished and with normal development. Vital signs reviewed as documented. HENMT: Normocephalic, atraumatic. External ears normal appearance without drainage. Nose without drainage, normal appearance. Mucus membranes moist. Very hard of hearing. Neck is supple, No jugular venous distension, trachea is midline, no appreciable carotid bruits. No lymphadenopathy. No meningeal signs. Flexion, extension and lateral rotation is without pain. Eyes: Pupils are equal, round, reactive to light and accommodation. No scleral icterus. Extra-ocular movement are intact. Thorax is symmetrical and with equal rise and fall with respirations. Resp: Lungs are clear to auscultation. No wheezes, rales, crackles or ronchi at present. Cardio: Regular rate and rhythm. Positive S1, S2. No appreciable murmurs, rubs or gallops. GI: Abdominal exam reveals normal bowel sounds to all quadrants. No organomegaly. No obvious palpable masses noted. No hepatomegally appreciated. Soft, non-tender to palpation. Extremity: Extremities are non-edematous and both femoral and pedal pulses are 2+ and equal bilaterally. Moves all extremities well, sensation in all extremities. Neuro: Alert and oriented x4, person, place, time and situation. Cranial nerves II through XII are grossly intact, there is no focal neurological deficits that I can appreciate at present. Motor strength in the upper and lower extremities are equal and bilateral 5/5. Psych: Cooperative, calm, normal thought process, appropriate judgment. Skin: No lesions, rashes. No gross abnormalities noted. Back: Symmetrical, no obvious deformity, No CVA tenderness Course 2 ED course: I contacted the hospitalist for admission and he initially accepted the patient and then after speaking to the family members advised that the patient might need to be transferred as the hospitalist stated that he spoke with Dr. Rios the patient's PCP and they felt that the patient needed a faster evaluation for biopsy. I spoke with the hospitalist and at the hospitalist request also Dr. Connolly hematology oncology who stated that he would see and accept the patient as consult but felt the hypercalcemia needed to be treated initially and I advised him I will also contact the bar tender Dr. Agustin to discuss having the biopsy completed while the patient was inpatient. Dr. Connolly and Dr. Agustin appeared to be in agreement that the patient could be treated inpatient here at this facility and I contacted the hospitalist Dr. Fontenot of this information and the pt will be admitted here to the hospital medicine service. I also contacted the [facility] office supervisor (Emily) to advise her that Dr. Agustin would need to evaluate and Bx the pt and she advised that the Bx could be completed and he needed to put an order in and they could have it completed tomorrow. I advised Dr. Agustin and he stated he would contact the appropriate staff to have it completed. Reevaluation(s): Reevaluation #1: At the request of hospitalist physician I did contact cardiology to evaluate the twelve-lead EKG. The contact lens cutter did review the twelve-lead EKG and has no concerns for ST elevation and did agree with me that the computer-generated EKG read was incorrect. Time: 13:33 Vital Signs: Vital signs: Vital Signs Temperature 99.6 F 09/19/23 10:46 Pulse Rate 108 H 09/19/23 14:35 Respiratory Rate 19 H 09/19/23 14:35 Blood Pressure 106/72 09/19/23 14:35 Pulse Oximetry 93 09/19/23 14:35 Oxygen Delivery Me thod Room Air 09/19/23 10:46 MDM - Altered Mental Status Medical Decision Making Physical exam completed and documented I will obtain laboratory evaluation as well as a chest x-ray and given the patient's concern for for altered mental status I suspect this is most likely secondary to her hypercalcemia as well as her newfound lung mass. Medical Records I reviewed the patient's medical records. Lab Data I reviewed the patient's lab results. 09/19/23 11:26 09/19/23 11:26 Laboratory Results WBC 8.47 10^3/uL (3.29-11.43) 09/19/23 11: RBC 4.89 10^6/uL (3.85-5.65) 09/19/23 11:26 Hgb 13.20 g/dL (11.27-16.99) 09/19/23 11:26 Hct 39.9 % (36-47) 09/19/23 11: MCV 81.6 fl (85-98) L 09/19/23 11: MCH 27.0 pg (27-33) 09/19/23 11: MCHC 33.1 g/dL (30-55) 09/19/23 11: RDW 14.5 % (12.1-15.1) 09/19/23 11:26 Plt Count 157 10^3/cmm (157-399) 09/19/23 11: MPV 10.9 fL (7.4-10.4) H 09/19/23 11:26 Neut % (Auto) 67.0 % 09/19/23 11:26 Lymph % (Auto) 24.1 % 09/19/23 11:26 [place] % (Auto) 4.7 % 09/19/23 11:26 Eos % (Auto) 1.2 % 09/19/23 11: Baso % (Auto) 0.6 % 09/19/23 11: Neut # (Auto) 5.68 10^3/uL (1.8-7.7) 09/19/23 11: Lymph # (Auto) 2.0 10^3/uL (0.8-4.8) 09/19/23 11:26 [place] # (Auto) 0.4 10^3/uL (0.2-0.9) 09/19/23 11:26 Eos # (Auto) 0.1 10^3/uL (0.0-0.8) 09/19/23 11: Baso # (Auto) 0.1 10^3/uL (0.0-0.1) 09/19/23 11:26 Nucleated RBC % (auto) 0.5 % 09/19/23 11: Nucleated RBCs # 0.0 /100WBC 09/19/23 11:26 Sodium 133 mmol/L (136-145) L 09/19/23 11:26 Potassium 5.1 mmol/L (3.5-5.1) 09/19/23 11:26 Chloride 95 mmol/L (98-107) L 09/19/23 11:26 Carbon Dioxide 27 mmol/L (22-29) 09/19/23 11:26 Anion Gap 16.1 (5-19) 09/19/23 11:26 BUN 21 mg/dL (8-23) 09/19/23 11:26 Creatinine 0.9 mg/dL (0.5-0.9) 09/19/23 11:26 GFR Calculation 62.5 mL/min (90-130) L 09/19/23 11:26 Glucose 105 mg/dL (65-115) 09/19/23 11:26 POC Glucose 101 mg/dL (70-110) 09/19/23 11:47 Calculated Osmolality 279 mOsm/kg (285-295) L 09/19/23 11:26 Calcium 14.0 mg/dL (8.5-10.5) H* 09/19/23 11:26 Magnesium 1.0 mg/dL (1.7-2.3) L 09/19/23 11:26 Total Bilirubin 0.5 mg/dL (0.15-1.2) 09/19/23 11:26 AST 45 U/L (0-32) H 09/19/23 11:26 ALT 27 U/L (0-33) 09/19/23 11:26 Alkaline Phosphatase 381 U/L (35-105) H 09/19/23 11:26 Total Protein 7.1 g/dL (6.6-8.7) 09/19/23 11:26 Albumin 3.3 g/dL (3.5-5.2) L 09/19/23 11:26 Globulin 3.8 g/dL (1.3-4.6) 09/19/23 11:26 TSH 3.91 uIU/mL (0.27-4.20) 09/19/23 11:26 All radiology interpretation(s) finalized by discharge Discharge Plan Discharge Patient Disposition: Admitted As Inpatient Admit Provider: Varinder Fontenot Clinical Impression: Hypercalcemia, Altered mental status, Acute UTI (urinary tract infection) Condition: Stable Coding Level of Care Code ED [employer] Coordinator for Monik Lopez
[2023-09-19 14:40] LABS: Glucose Urine UA Norm (Normal); Ketones Urine 1+ (Negative); Protein Urine 1+ (Negative); Specific Gravity, Urine 1.025 (1.005-1.030); Urine Appearance Cloudy (CLEAR); Urine Color Yellow (Yellow); pH Urine 5 (5-7)
[2023-09-19 14:41] LABS: Add Urine Microscopic? YES; Bilirubin Urine 1+ (Negative); Blood Urine 2+ (Negative); Leukocyte Esterase Urine 2+ (Negative); Nitrate Urine Negative (Negative); Urobilinogen Urine 1 mg/dL (Negative)
[2023-09-19 14:53] LABS: Add Urine Culture? Yes; Bacteria Urine 1+ /hpf; Mucus Urine 2+ /hpf; RBC Urine 25-40 /hpf (0-2); Trichomonas Urine 2+ /hpf; WBC Urine TOO NUMEROUS TO CNT /hpf (0-5)
--- NOTE | 2023-09-19 15:42 | CTR_ITS ---
PROCEDURE INFORMATION: Exam: CT Abdomen And Pelvis Without Contrast Exam date and time: 09/19/2023 3:58 PM Age: 68 years old Clinical indication: Other: UTI; Additional info: UTI, hypercal, assess for stone/obstructive uropathy TECHNIQUE: Imaging protocol: Computed tomography of the abdomen and pelvis without contrast. Radiation optimization: All CT scans at this facility use at least one of these dose optimization techniques: automated exposure control; mA and/or kV adjustment per patient size (includes targeted exams where dose is matched to clinical indication); or iterative reconstruction. COMPARISON: MR abdomen wo/w con* [id number] 02/26/2022 9:50 AM RADIATION DOSE METRICS: Total DLP (mGy-cm): 1075 FINDINGS: Lungs: Right infrahilar masslike region with lobular opacities in the right lower lobe raising the question spread of neoplasm versus postobstructive pneumonia. Additional nodular opacities are noted in the right middle lobe measuring up to 4 mm. Small pericardial effusion. Diaphragm: No evidence of diaphragmatic defect. Liver: Extensive hepatic metastatic disease. Gallbladder and bile ducts: Status post cholecystectomy. No evidence of intrahepatic or extrahepatic biliary dilatation. Pancreas: Grossly unremarkable. Spleen: Multiple splenic calcifications compatible with sequela of a remote granulomatous process. Otherwise grossly unremarkable. Adrenal glands: Grossly unremarkable. Kidneys and ureters: Indeterminate 19 mm left upper pole lesion. Follow-up multiphase CT or MRI of the abdomen with/without contrast is recommended. No hydronephrosis of either kidney or inflammatory changes. Stomach and bowel: Few scattered colonic diverticula without evidence of acute diverticulitis. No evidence of bowel obstruction or perienteric inflammatory changes. There is prominence of the gastric submucosal fat suggestive of sequela of chronic inflammation. Appendix: Normal appendix. Intraperitoneal space: No evidence of free air or fluid collection. Vasculature: Moderate atherosclerosis without evidence of aneurysmal dilitation of abdominal aorta. Evaluation for vascular injury or thombosis is limited by lack of IV contrast. Lymph nodes: There are a few prominent nonenlarged neftali hepatic, retrocrural and gastrohepatic nodes, nonspecific though alice spread of neoplasm would be difficult to exclude. Urinary bladder: Grossly unremarkable. Reproductive: Status post hysterectomy. Bones/joints: No evidence of acute fracture or aggresive osseous lesion. 2 mm degenerative retrolisthesis of L3 on L4 with a disc bulge resulting in moderate central stenosis. There is moderate-severe left-sided foraminal stenosis at L3-L4 with possible contacting/impingement of the exiting left L3 nerve root. Soft tissues: No evidence of fluid collection or hematoma in the superficial soft tissues. 4.5 cm fat containing infraumbilical abdominal hernia. CT/CT kidney stone [id number] IMPRESSION: 1. Partially visualized right infrahilar mass with extensive hepatic metastatic disease. 2. Indeterminate left lateral renal lesion, possibly hemorrhagic or proteinaceous cyst. Follow-up multiphase CT or MRI of the abdomen with/without contrast is recommended to exclude a solid mass. No hydronephrosis of either kidney or inflammatory changes. 3. Lobulated opacities in the right lower lobe, possibly representing spread of neoplasm versus postobstructive pneumonia in the proper clinical setting. The findings were verbally communicated by telephone with KY Marquez at 4:21 PM MEDICINE AIDE on 09/19/2023. The findings were acknowledged and understood.
--- NOTE | 2023-09-19 15:59 | P.CONIM_ITS ---
Providers/Reason For Consult 2 Consulting Physician/Specialty*: Shaggy Agustin MD/pulmonary Reason for Consult*: Right hilar mass Requesting Physician: Dr. Sebastian Tariq, ER physician Attending Physician: Ky Fontenot Primary Care Provider: Faby Kumar MD History of Present Illness History of Present Illness Anson Cheney is a 68 year old female-seen 2 days ago 09/17/2023 for right hilar mass seen on CT chest 09/16/2023 and scheduled for endobronchial ultrasound-guided biopsies on 09/24/2023 Patient family reported she has increasing difficulty walking, fatigue, shortness of breath on exertion. Her blood work showed calcium 11 at PCP office and so she was informed to go to ER today. Reviewed admission labs revealed calcium 14 mg/DL. EKG sinus tachycardia-QTc 401 ; patient received 1 L bolus NS; she is given calcitonin, started on NS at 200 cc/h Renal masses revealed numerous white count, and leukoesterase positive-She is started on ciprofloxacin ER consulted pulmonary service for possible biopsies during hospital admission while she is being treated for hypercalcemia. I discussed with chief transfer and pumphouse operator and requested to schedule patient for bronchoscopic inspection of airways as well as endobronchial ultrasound-guided biopsies tomorrow. She is going to work on that. I met patient's daughter as well as her son at bedside and informed that will try to arrange for biopsies as soon as possible. Patient is a chronic smoker and smoked 3 to 4 packs/day for several years and currently smoking 2 packs/day. She takes Breo and Symbicort as outpatient for her COPD. She is on 2 L supplemental oxygen but noncompliant. Review of Systems 2 General: Reports: 10 or more systems reviewed and unremarkable except in HPI and below Medications/Allergies Home Medications Medication Instructions Recorded Confirmed Last Taken Type albuterol sulfate 90 mcg/actuation 2 puff inhalation Q6H PRN sob 02/04/20 09/19/23 Unknown History aerosol inhaler (ProAir HFA) levothyroxine 50 mcg tablet 50 mcg PO DAILY 02/04/20 09/19/23 09/18/23 History budesonide-formoterol HFA 80 2 puff inhalation BID 12/26/20 09/19/23 09/18/23 History mcg-4.5 mcg/actuation aerosol inhaler (Symbicort) rosuvastatin 10 mg tablet 10 mg PO DAILY 12/11/21 09/19/23 09/18/23 History tiotropium bromide 18 mcg capsule 18 mcg inhalation DAILY 12/11/21 09/19/23 09/18/23 History with inhalation device (Spiriva with HandiHaler) cholecalciferol (vitamin D3) 25 25 mcg PO BID 03/12/22 09/19/23 09/18/23 History mcg (1,000 unit) capsule zinc acetate 50 mg (zinc) capsule 50 mg PO BID 03/12/22 09/19/23 09/18/23 History (Galzin) duloxetine 60 mg capsule,delayed 60 mg PO DAILY 09/17/23 09/19/23 09/18/23 History release aspirin 81 mg tablet,delayed 81 mg PO DAILY 09/19/23 09/19/23 09/18/23 History release cyclobenzaprine 10 mg tablet 10 mg PO Q8H PRN Muscle Pain 09/19/23 09/19/23 09/18/23 History gabapentin 400 mg capsule 400 mg PO TID 09/19/23 09/19/23 09/18/23 History hydrocodone 5 mg-acetaminophen 325 1 tab PO 6XD PRN Pain 09/19/23 09/19/23 09/18/23 History mg tablet meloxicam 15 mg tablet 15 mg PO DAILY 09/19/23 09/19/23 09/18/23 History propranolol 60 mg capsule,24 60 mg PO DAILY 09/19/23 09/19/23 09/18/23 History hr,extended release (Inderal [place]) varenicline 0.5 mg (11)-1 mg (42) See Rx Instructions .Route .COMPLEX 09/19/23 09/19/23 Unknown History tablets in a dose pack Allergies Allergy/AdvReac Type Severity Reaction Status Date / Time Penicillins Allergy Unknown Unknown Verified 09/19/23 10:52 Sulfa (Sulfonamide Allergy Unknown Unknown Verified 09/19/23 10:52 Antibiotics) PFSH Acute 2 PFSH: Medical History Hematuria COVID-19 Hyperlipidemia Hypothyroidism Surgical History History of back surgery History of lymph node excision History of colonoscopy S/P cholecystectomy S/P hysterectomy Family History Sister , at age 62 Cancer LUNG Mother , AGE78 Diabetes Cancer Ovarian Father , at age 78 CAD (coronary artery disease) Heart attack Social History Smoking and tobacco/nicotine status: current every day tobacco/nicotine user (2 packs a day ) cigarettes Packs smoked per day: 2 Years cigarettes smoked: 47 [ Other cigarette details: Started at age 22] Quit status (tobacco/nicotine): considering quitting Second hand smoke exposure: Yes Alcohol intake: never Substance/Drug Use: never Lives independently: Yes Household members: family and children Housing: House Marital status: / service: No Current occupational status: disabled Pets and animals: Yes Do you think of yourself as: Straight/Heterosexual Current gender identity: Female Vitals/I&O/Wt Last Vital Signs Temp 99.6 F 09/19/23 10:46 Pulse 108 H 09/19/23 14:35 Resp 19 H 09/19/23 14:35 BP 106/72 09/19/23 14:35 Pulse Ox 93 09/19/23 14:35 O2 Del Method Room Air 09/19/23 10:46 09/19/23 09/19/23 09/19/23 06:59 14:59 22:59 Intake Total 1000 / 1000 Balance 1000 / 1000 Weight last 48 hrs Weight 216 lb Physical Exam 2 Narrative: General: alert, NAD HEENT: conj clear, EOMI, PERRL, mmm, Neck: supple, no meningismus Heme: no cervical LAP Respiratory: Inspection: No visible deformity of the chest wall Palpation: Trachea is mildly deviated to the right, bilateral symmetric expansion Percussion: Bilateral tympanic percussion note both anterior and posteriorly Auscultation: Bilateral clear to auscultation both anterior and posteriorly, no crackles wheezing or rhonchi Cardiovascular: rrr, nl s1s2, no mrg Abdomen: soft, nt, nd, no r/g, bs+ Extremities: pulses +, no edema, no c/c : no CVA tenderness Skin: intact, no rash MSK: no back or neck pain Neurologic: grossly intact Data 09/19/23 11:26 09/19/23 11:26 Other Labs: Radiology Impressions Abdomen/Pelvis CT 09/19/23 15:42 IMPRESSION: 1. Partially visualized right infrahilar mass with extensive hepatic metastatic disease. 2. Indeterminate left lateral renal lesion, possibly hemorrhagic or proteinaceous cyst. Follow-up multiphase CT or MRI of the abdomen with/without contrast is recommended to exclude a solid mass. No hydronephrosis of either kidney or inflammatory changes. 3. Lobulated opacities in the right lower lobe, possibly representing spread of neoplasm versus postobstructive pneumonia in the proper clinical setting. The findings were verbally communicated by telephone with KY Marquez at 4:21 PM ELECTRICAL TECH/PROJECT MANAGER on 09/19/2023. The findings were acknowledged and understood. Laboratory Results WBC 8.47 10^3/uL (3.29-11.43) 09/19/23 11:26 RBC 4.89 10^6/uL (3.85-5.65) 09/19/23 11:26 Hgb 13.20 g/dL (11.27-16.99) 09/19/23 11:26 Hct 39.9 % (36-47) 09/19/23 11:26 MCV 81.6 fl (85-98) L 09/19/23 11:26 MCH 27.0 pg (27-33) 09/19/23 11:26 MCHC 33.1 g/dL (30-55) 09/19/23 11:26 RDW 14.5 % (12.1-15.1) 09/19/23 11:26 Plt Count 157 10^3/cmm (157-399) 09/19/23 11:26 MPV 10.9 fL (7.4-10.4) H 09/19/23 11:26 Neut % (Auto) 67.0 % 09/19/23 11:26 Lymph % (Auto) 24.1 % 09/19/23 11:26 [place] % (Auto) 4.7 % 09/19/23 11:26 Eos % (Auto) 1.2 % 09/19/23 11:26 Baso % (Auto) 0.6 % 09/19/23 11:26 Neut # (Auto) 5.68 10^3/uL (1.8-7.7) 09/19/23 11:26 Lymph # (Auto) 2.0 10^3/uL (0.8-4.8) 09/19/23 11:26 [place] # (Auto) 0.4 10^3/uL (0.2-0.9) 09/19/23 11:26 Eos # (Auto) 0.1 10^3/uL (0.0-0.8) 09/19/23 11:26 Baso # (Auto) 0.1 10^3/uL (0.0-0.1) 09/19/23 11:26 Nucleated RBC % (auto) 0.5 % 09/19/23 11: Nucleated RBCs # 0.0 /100WBC 09/19/23 11:26 Sodium 133 mmol/L (136-145) L 09/19/23 11:26 Potassium 5.1 mmol/L (3.5-5.1) 09/19/23 11:26 Chloride 95 mmol/L (98-107) L 09/19/23 11:26 Carbon Dioxide 27 mmol/L (22-29) 09/19/23 11:26 Anion Gap 16.1 (5-19) 09/19/23 11:26 BUN 21 mg/dL (8-23) 09/19/23 11:26 Creatinine 0.9 mg/dL (0.5-0.9) 09/19/23 11:26 GFR Calculation 62.5 mL/min (90-130) L 09/19/23 11:26 Glucose 105 mg/dL (65-115) 09/19/23 11:26 POC Glucose 101 mg/dL (70-110) 09/19/23 11:47 Calculated Osmolality 279 mOsm/kg (285-295) L 09/19/23 11:26 Calcium 14.0 mg/dL (8.5-10.5) H* 09/19/23 11:26 Magnesium 1.0 mg/dL (1.7-2.3) L 09/19/23 11:26 Total Bilirubin 0.5 mg/dL (0.15-1.2) 09/19/23 11:26 AST 45 U/L (0-32) H 09/19/23 11:26 ALT 27 U/L (0-33) 09/19/23 11:26 Alkaline Phosphatase 381 U/L (35-105) H 09/19/23 11:26 Total Protein 7.1 g/dL (6.6-8.7) 09/19/23 11: Albumin 3.3 g/dL (3.5-5.2) L 09/19/23 11: Globulin 3.8 g/dL (1.3-4.6) 09/19/23 11: TSH 3.91 uIU/mL (0.27-4.20) 09/19/23 11:26 Urine Color Yellow (Yellow) 09/19/23 14:02 Urine Appearance Cloudy (CLEAR) A 09/19/23 14:02 Urine pH 5 (5-7) 09/19/23 14:02 Ur Specific [place] 1.025 (1.005-1.030) 09/19/23 14:02 Urine Protein 1+ (Negative) H 09/19/23 14:02 Urine Glucose (UA) Norm (Normal) 09/19/23 14:02 Urine Ketones 1+ (Negative) H 09/19/23 14:02 Urine Blood 2+ (Negative) H 09/19/23 14:02 Urine Nitrate Negative (Negative) 09/19/23 14:02 Urine Bilirubin 1+ (Negative) H 09/19/23 14:02 Urine Urobilinogen 1 mg/dL (Negative) H 09/19/23 14:02 Ur Leukocyte Esterase 2+ (Negative) H 09/19/23 14:02 Urine RBC 25-40 /hpf (0-2) H 09/19/23 14:02 Urine WBC Too numerous to cnt /hpf (0-5) H 09/19/23 14:02 Ur Squamous Epith Cells 5-10 /hpf (0-5) H 09/19/23 14:02 Amorphous Sediment Not Reportable 09/19/23 14:02 Urine Bacteria 1+ /hpf (NONE) H 09/19/23 14:02 Urine Mucus 2+ /hpf 09/19/23 14:02 Urine Trichomonas 2+ /hpf H 09/19/23 14:02 A&P Assessment and plan (1) Hilar mass: (2) Emphysema lung: Qualifiers: Emphysema type: centrilobular Qualified Code(s): J43.2 - Centrilobular emphysema (3) Chronic respiratory failure with hypoxia: (4) Altered mental status: Qualifiers: Altered mental status type: transient alteration of awareness Qualified Code(s): R40.4 - Transient alteration of awareness (5) Hypercalcemia of malignancy: Plan # Right hilar mass in patient with significant smoking history -Suspicious for malignancy -N.p.o. after midnight -Will plan for bronchoscopic inspection of airways and possible endobronchial biopsy; endobronchial ultrasound-guided biopsies of hilar/mediastinal lymph nodes to rule out malignancy # Hypercalcemia-likely secondary to underlying pulmonary malignancy -Admission EKG QTc is normal -Continue IV fluids as well as calcitonin -Monitor calcium and QTc on EKG -Magnesium 1-supplement 2 g MGS 04 # Altered mental status-likely secondary to hypercalcemia/UTI -Patient is getting IV hydration for hypercalcemia -Covered with ciprofloxacin -Cultures pending Consult Attestations 2 Medical Necessity Statement: At least 24 to 48 hours until her hypercalcemia is corrected and mentation improves Time Spent in Patient Care: Greater than 35 minutes (>than 50% of time spent in counselling and/or direct pt care on unit) . Coding Level of Care Code Acute Code for [facility] Fwd Diagnoses Hilar mass R91.8 Centrilobular emphysema J43.2 Emphysema type: centrilobular Chronic respiratory failure with hypoxia J96.11 Transient alteration of awareness R40.4 Altered mental status type: transient alteration of awareness Hypercalcemia of malignancy E83.52 Time Spent (min) 53
[2023-09-19] MEDS: ciprofloxacin 400 MG/200 ML PREMIX 200 MG IV (16:52)
[2023-09-19] MEDS: metroNIDAZOLE IV 500 MG/100 ML PREMIX 100 MG IV (17:15)
--- NOTE | 2023-09-19 17:32 | P.HP_ITS ---
Providers/Chief Complaint 2 Admitting Physician: Varinder Fontenot Primary Care Provider: Faby Kumar MD Chief Complaint: sent from abnormal labs History of Present Illness 68-year-old lady hard of hearing with smoking disorder, hypothyroidism, hyperlipidemia, left lung mass currently in the process of arrangements for diagnostic tissue sampling, urgently biopsy is planned for next Saturday, has been having calcium elevated at 11.7 on 09/07, with shortness of breath, fatigue, difficulty walking, episodes of confusion, was referred for assessment in ER by her primary provider, they are noted to have worsened hypercalcemia, calcium up to 14, with recently rapid weight loss, losing 12 pounds over the last 12 days, with confusion, CT chest from 09/16 indicating possible lymphoma concern for possibility of high-grade lymphoma initially transfer was attempted to [facility] from the ER by ER physician, however, transfer not accepted stating that diagnosis would not be quicker than here, and not until hypercalcemia treated, so admission arranged here first on discussion with heme- onc, pulmonology, patient's PCP and patient and family. In ER additionally UA coming back suspicious for UTI. Urine WBC too numerous to count, RBC 25-40, also urine trichomonas. She is a and denies any sexual encounters since her 's passing. Review of Systems 2 Const: Reports: fatigue; Denies: fever(s), chills, body aches or malaise ENMT: Denies: throat pain Card: Denies: chest pain, edema, pre-syncope or dyspnea on exertion Resp: Denies: dyspnea, productive cough, change in phlegm color or hemoptysis GI: Denies: abdominal pain, nausea, vomiting, diarrhea, constipation, hematochezia or melena : Denies: flank pain, urinary frequency or hematuria Musc: Denies: back pain, joint swelling or joint redness Skin/Breast: Denies: rash or new lesions Neuro: Reports: difficulty walking and confusion; Denies: headache(s), numbness in extremities, weakness in extremities, dizziness or seizure-like activity Medications/Allergies Home Medications Medication Instructions Recorded Confirmed Last Taken Type albuterol sulfate 90 mcg/actuation 2 puff inhalation Q6H PRN sob 02/04/20 09/19/23 Unknown History aerosol inhaler (ProAir HFA) levothyroxine 50 mcg tablet 50 mcg PO DAILY 02/04/20 09/19/23 09/18/23 History budesonide-formoterol HFA 80 2 puff inhalation BID 12/26/20 09/19/23 09/18/23 History mcg-4.5 mcg/actuation aerosol inhaler (Symbicort) rosuvastatin 10 mg tablet 10 mg PO DAILY 12/11/21 09/19/23 09/18/23 History tiotropium bromide 18 mcg capsule 18 mcg inhalation DAILY 12/11/21 09/19/23 09/18/23 History with inhalation device (Spiriva with HandiHaler) cholecalciferol (vitamin D3) 25 25 mcg PO BID 03/12/22 09/19/23 09/18/23 History mcg (1,000 unit) capsule zinc acetate 50 mg (zinc) capsule 50 mg PO BID 03/12/22 09/19/23 09/18/23 History (Galzin) duloxetine 60 mg capsule,delayed 60 mg PO DAILY 09/17/23 09/19/23 09/18/23 History release aspirin 81 mg tablet,delayed 81 mg PO DAILY 09/19/23 09/19/23 09/18/23 History release cyclobenzaprine 10 mg tablet 10 mg PO Q8H PRN Muscle Pain 09/19/23 09/19/23 09/18/23 History gabapentin 400 mg capsule 400 mg PO TID 09/19/23 09/19/23 09/18/23 History hydrocodone 5 mg-acetaminophen 325 1 tab PO 6XD PRN Pain 09/19/23 09/19/23 09/18/23 History mg tablet meloxicam 15 mg tablet 15 mg PO DAILY 09/19/23 09/19/23 09/18/23 History propranolol 60 mg capsule,24 60 mg PO DAILY 09/19/23 09/19/23 09/18/23 History hr,extended release (Inderal [place]) varenicline 0.5 mg (11)-1 mg (42) See Rx Instructions .Route .COMPLEX 09/19/23 09/19/23 Unknown History tablets in a dose pack Allergies Allergy/AdvReac Type Severity Reaction Status Date / Time Penicillins Allergy Unknown Unknown Verified 09/19/23 10:52 Sulfa (Sulfonamide Allergy Unknown Unknown Verified 09/19/23 10:52 Antibiotics) PFSH Acute 2 PFSH: Medical History Hematuria COVID-19 Hyperlipidemia Hypothyroidism Surgical History History of back surgery History of lymph node excision History of colonoscopy S/P cholecystectomy S/P hysterectomy Family History Sister , at age 62 Cancer LUNG Mother , AGE78 Diabetes Cancer Ovarian Father , at age 78 CAD (coronary artery disease) Heart attack Social History Smoking and tobacco/nicotine status: current every day tobacco/nicotine user (2 packs a day ) cigarettes Packs smoked per day: 2 Years cigarettes smoked: 47 [ Other cigarette details: Started at age 22] Quit status (tobacco/nicotine): considering quitting Second hand smoke exposure: Yes Alcohol intake: never Substance/Drug Use: never Lives independently: Yes Household members: family and children Housing: House Marital status: / service: No Current occupational status: disabled Pets and animals: Yes Do you think of yourself as: Straight/Heterosexual Current gender identity: Female Vitals/I&O/Wt Last Vital Signs Temp 99.6 F 09/19/23 10:46 Pulse 108 H 09/19/23 14:35 Resp 19 H 09/19/23 14:35 BP 106/72 09/19/23 14:35 Pulse Ox 93 09/19/23 14:35 O2 Del Method Nasal Cannula 09/19/23 15:37 09/19/23 09/19/23 09/19/23 06:59 14:59 22:59 Intake Total 1000 / 1000 Balance 1000 / 1000 Weight last 48 hrs Weight 99.291 kg Weight 97.976 kg Physical Exam 2 Narrative: Hard of hearing. Const: COMMON NORMALS: patient oriented x3 and alert GENERAL APPEARANCE: c ooperative ORIENTATION/CONSCIOUSNESS: Yes awake HENMT: COMMON NORMALS: oropharynx normal OTHER: Poor dentition Neck/C-Spine: COMMON NORMALS: no JVD Resp: COMMON NORMALS: normal respiratory effort and clear to auscultation bilaterally AUSCULTATION: clear to auscultation bilaterally Cardio: COMMON NORMALS: no JVD, regular rhythm, S1 normal heart sound present, S2 normal heart sound present and No murmurs present (Cardio) RHYTHM: regular rhythm HEART SOUNDS: S1 normal heart sound present and S2 normal heart sound present GI: COMMON NORMALS: Normal to inspection, nondistended, normoactive bowel sounds present, Soft to palpation and non-tender PALPATION: Yes Soft to palpation Extremity: COMMON NORMALS: no joint enlargement and no pedal edema Neuro: COMMON NORMALS: patient oriented x3 and moves all extremities S ENSORIUM/ORIENTATION: Yes alert Skin: COMMON NORMALS: no rashes or lesions noted GENERAL SKIN EXAM: no rashes or lesions noted Data 09/19/23 11:26 09/19/23 11:26 A&P Assessment and plan (1) Hypercalcemia of malignancy: Severe hypercalcemia, calcium 14, symptomatic with reported confusion. Reviewed vitals, CBC, CMP, including calcium. TSH. Magnesium. Reviewed CT abdomen pelvis. Discussed with ER physician. Reviewed ER note. Discussed with hematology oncology, discussed with PCP. Patient and family. Discussed treatment including IV fluids, requested normal saline 200 mill per hour. Monitor with risk of fluid overload. Calcitonin, zoledronic acid. Reassess calcium. Noted severe hypomagnesemia, replace. Recheck magnesium, phosphorus. Chemistry. Low calcium diet. Hold vitamin D. Cardiac monitoring due to risk of life-threatening arrhythmia.' Reassess renal function due to risk of renal dysfunction/failure. Avoid NSAIDs. (2) UTI (urinary tract infection): Urine culture sent off. Treated with ciprofloxacin. Follow-up urine culture. Reviewed CT abdomen pelvis, no obstructive uropathy. (3) Infection due to trichomonas: She is , denies any sexual contacts. Unclear source. Treat with Flagyl. (4) Acute encephalopathy: Acute metabolic encephalopathy, suspected combination of severe hypercalcemia, UTI, also will hold varenicline due to its possible adverse effects. Treat underlying causes as above. Reorient. Up with assistance. Fall precautions. (5) Metastatic cancer: Unknown source suspected metastatic cancer, left hilar mass, suspected metastatic disease in the liver, unidentified, possibly unrelated lesion in the inferior pole of the kidney. (6) Goals of care, counseling/discussion: In case of cardiopulmonary arrest would not want CPR. Okay with other care and current medical treatments. Plan Difficulty ambulating: Treat underlying causes of metabolic encephalopathy, hypercalcemia, UTI, PT assessment. HLD: Hold statin for now Smoking addiction: Nicotine patch, lozenges as needed. Encourage cessation. Emphysema: While in the hospital DuoNebs, budesonide. Normally on 1/2 L oxygen. RAPHAEL: Could not tolerate CPAP in the past. Returned it. Attestations 2 Medical Necessity Statement*: Admission of over 2 midnights anticipated for assessment management of severe hypercalcemia of malignancy, suspected metastatic malignancy of unknown origin, possible high-grade lymphoma, acute encephalopathy. Diagnoses Hypercalcemia of malignancy E83.52 UTI (urinary tract infection) N39.0 Infection due to trichomonas A59.9 Acute encephalopathy G93.40 Metastatic cancer C79.9 Goals of care, counseling/discussion Z71.89
[2023-09-19] MEDS: sodium chloride 0.9% 1,000 ML 200 ML IV (18:01)
[2023-09-19] MEDS: calcitonin,salmon 200 unit/mL SDV 2mL 100 UNIT SUBCUT (18:02)
[2023-09-19] MEDS: nicotine 21 mg Patch 1 PATCH TRANSDERMA (18:02)
[2023-09-19] MEDS: HYDROcodone-acetaminophen 5-325 mg Tablet 1 TAB PO (18:03)
[2023-09-19] MEDS: zoledronic acid 4 MG in sodium chloride 0.9% (100 ml) 100 ML 420 MG IV (18:13)
[2023-09-19] MEDS: heparin 5,000 unit/mL INJ 1 mL 5000 UNIT SUBCUT (18:55)
[2023-09-19] MEDS: zinc gluconate 50 mg Tablet PO (18:55)
[2023-09-19] MEDS: magnesium sulfate premix 4 GM/100 ML PREMIX IV (18:55)
[2023-09-19] MEDS: budesonide 0.5 mg/2 mL Neb INHALATION (20:56)
[2023-09-19] MEDS: ipratropium-albuterol 3 mL Neb INHALATION (20:56)
[2023-09-19] MEDS: gabapentin 100 mg Capsule 200 MG PO (21:15)
[2023-09-20] VITALS (23 sets, daily range): BP systolic 104–171; BP diastolic 70–89; PULSE 81–124; RESP 17–109; TEMP 36.1–37.6; O2SAT 85–96
[2023-09-20] MEDS: ipratropium-albuterol 3 mL Neb INHALATION ×3 (01:07→15:15)
[2023-09-20] MEDS: ciprofloxacin 400 MG/200 ML PREMIX 200 MG IV (02:51)
[2023-09-20] MEDS: metroNIDAZOLE IV 500 MG/100 ML PREMIX 100 MG IV ×2 (02:51→16:48)
[2023-09-20 06:18] LABS: Basophils % 0.4 %; Eosinophils # 0.1 10^3/uL (0.0-0.8); Eosinophils % 0.7 %; Hematocrit 36.2 % (36-47); Lymphocytes # 1.3 10^3/uL (0.8-4.8); Lymphocytes % 18.4 %; Mean Corpuscular HGB Conc 32.6 g/dL (30-55); Mean Corpuscular Hemoglobin 26.8 pg (27-33); Mean Corpuscular Volume 82.1 fl (85-98); Mean Platelet Volume 10.3 fL (7.4-10.4); Monocytes # 0.3 10^3/uL (0.2-0.9); Monocytes % 4.1 %; Neutrophils # 5.33 10^3/uL (1.8-7.7); Neutrophils % 74.7 %; Nucleated Red Blood Cells % 0.4 %; Platelet Count 135 10^3/cmm (157-399); Red Blood Count 4.41 10^6/uL (3.85-5.65); Red Cell Distribution Width 14.5 % (12.1-15.1); White Blood Count 7.13 10^3/uL (3.29-11.43)
[2023-09-20 06:31] LABS: Blood Urea Nitrogen 17 mg/dL (8-23); Calcium 11.1 mg/dL (8.5-10.5); Carbon Dioxide 24 mmol/L (22-29); Chloride 97 mmol/L (98-107); Glomerular Filtration Rate 83.5 mL/min (90-130); Glucose 112 mg/dL (65-115); Magnesium 1.4 mg/dL (1.7-2.3); Osmolality Calculated 278 mOsm/kg (285-295); Phosphorus 1.8 mg/dL (2.5-4.5); Sodium 133 mmol/L (136-145)
--- NOTE | 2023-09-20 07:55 | P.CONIM_ITS ---
Providers/Reason For Consult 2 Consulting Physician/Specialty*: Medical oncology Reason for Consult*: Metastatic malignancy/possible lymphoma. Requesting Physician: Varinder Fontenot Attending Physician: Varinder Fontenot Primary Care Provider: Faby Kumar MD History of Present Illness History of Present Illness This is a 68-year-old woman with hypercalcemia in association with CT evidence of right hilar lymphadenopathy and extensive liver metastases. She has multiple medical illnesses including hypertension, hyperlipidemia, hypothyroidism, COPD, degenerative arthritis, and degenerative disease of the spine. She has been followed by Dr. Kwan for a parathyroid nodule. She has been a heavy smoker. She had recently presented to Dr. Kumar with worsening cough and shortness of breath. Her contrast enhanced chest CT on 09/16/2023 showed evidence of a new right hilar mass which was noted to partially encase the right bronchovascular structures and to extend along the right lower lobe proximal bronchus. The appearance was felt to be most consistent with a large confluent lymphadenopathy with the largest component at the right hilum measuring 4.4 x 3.4 cm. There was additional interlobar adenopathy extending inferiorly into the right lower lobe. Also noted was an abnormal subcarinal lymph node measuring 2.3 cm and right paratracheal lymphadenopathy with the largest confluent mass measuring 2.3 x 3.8 cm. There was noted to be a small pericardial effusion. A well-circumscribed 8 mm noncalcified nodule in the right upper lobe appeared stable. There was noted to be hepatic steatosis. An enhancing mass in the superior pole the left kidney measured 1.3 x 1.5 cm. Also noted was an incompletely visualized lesion in the superior posterior left kidney suggestive of complex cyst. Yesterday she presented to the emergency room with increased weakness and confusion. Her laboratory studies showed significantly elevated serum calcium at 14.0 mg/dL with albumin low at 3.3 g/dL. Her alkaline phosphatase was elevated at 381/105 U/L with bilirubin normal at 0.5 mg/dL. Her magnesium was low at 1.0 mg/dL. Her CT abdomen/pelvis showed evidence of extensive hepatic metastatic disease. The right infrahilar mass/adenopathy was partially visualized. There were a few prominent nonenlarged neftali hepatic retrocrural and gastrohepatic lymph nodes, felt to be nonspecific. A 19 mm lesion in the upper pole of the left kidney was felt to be indeterminate. Degenerative changes were noted in the lumbar spine. There were no obvious metastatic bone lesions noted. Following admission of the hospital, she has been on IV hydration and antibiotic therapy for suspected urinary tract infection. She has started treatment with calcitonin and zoledronic acid for the hypercalcemia, and she also has been on magnesium replacement. Review of Systems 2 Narrative: Constitutional: She has been getting weaker over a period of several months, but yesterday she was too weak to even get up. Appetite has been poor, and her weight is down about 12 pounds. No fever or night sweats. ECOG score is 3. Eyes:?No change in vision. ENMT: She is hard of hearing. She complains of having sinus pressure. No mouth sores. No sore throat or difficulty swallowing. Hematologic/Lymphatic: No abnormal bruising or bleeding. Respiratory: She has shortness of breath and cough. No pleuritic pain or hemoptysis. Cardiovascular: No angina pain. No palpitations. Gastrointestinal: No nausea/vomiting. She has constipation. She is not certain when her bowels last moved. No blood in the stool or black stools. Genitourinary: No dysuria or hematuria. No urinary frequency. No urgency or incontinence. Musculoskeletal: She has been followed by Dr. Cartwright for back pain. She also now complains of generalized joint pain. Integumentary: No skin rash or other skin changes. Neurologic: She has sinus headache. She has recent onset of confusion. She does not appear to be having focal neurologic symptoms. Psych:?No anxiety or depression. Medications/Allergies Home Medications Medication Instructions Recorded Confirmed Last Taken Type albuterol sulfate 90 mcg/actuation 2 puff inhalation Q6H PRN sob 02/04/20 09/19/23 Unknown History aerosol inhaler (ProAir HFA) levothyroxine 50 mcg tablet 50 mcg PO DAILY 02/04/20 09/19/23 09/18/23 History budesonide-formoterol HFA 80 2 puff inhalation BID 12/26/20 09/19/23 09/18/23 History mcg-4.5 mcg/actuation aerosol inhaler (Symbicort) rosuvastatin 10 mg tablet 10 mg PO DAILY 12/11/21 09/19/23 09/18/23 History tiotropium bromide 18 mcg capsule 18 mcg inhalation DAILY 12/11/21 09/19/23 09/18/23 History with inhalation device (Spiriva with HandiHaler) cholecalciferol (vitamin D3) 25 25 mcg PO BID 03/12/22 09/19/23 09/18/23 History mcg (1,000 unit) capsule zinc acetate 50 mg (zinc) capsule 50 mg PO BID 03/12/22 09/19/23 09/18/23 History (Galzin) duloxetine 60 mg capsule,delayed 60 mg PO DAILY 09/17/23 09/19/23 09/18/23 History release aspirin 81 mg tablet,delayed 81 mg PO DAILY 09/19/23 09/19/23 09/18/23 History release cyclobenzaprine 10 mg tablet 10 mg PO Q8H PRN Muscle Pain 09/19/23 09/19/23 09/18/23 History gabapentin 400 mg capsule 400 mg PO TID 09/19/23 09/19/23 09/18/23 History hydrocodone 5 mg-acetaminophen 325 1 tab PO 6XD PRN Pain 09/19/23 09/19/23 09/18/23 History mg tablet meloxicam 15 mg tablet 15 mg PO DAILY 09/19/23 09/19/23 09/18/23 History propranolol 60 mg capsule,24 60 mg PO DAILY 09/19/23 09/19/23 09/18/23 History hr,extended release (Inderal LA) varenicline 0.5 mg (11)-1 mg (42) See Rx Instructions .Route .COMPLEX 09/19/23 09/19/23 Unknown History tablets in a dose pack Allergies Allergy/AdvReac Type Severity Reaction Status Date / Time Penicillins Allergy Unknown Unknown Verified 09/19/23 10:52 Sulfa (Sulfonamide Allergy Unknown Unknown Verified 09/19/23 10:52 Antibiotics) Current Medications Generic Name Dose Route Start Last Admin Trade Name Freq PRN Reason Stop Dose Admin Hydrocodone Bitart/Acetaminophen 1 tab 09/19/23 17:28 09/19/23 18:03 Hydrocodone-Acetaminophen 5-325 Mg Tablet PO 1 tab 6XD PRN Administration Pain Albuterol/Ipratropium 3 ml 09/19/23 20:00 09/20/23 01:07 Ipratropium-Albuterol 3 Ml Neb INHALATION 3 ml Q6H.RESP DONTRELL Administration Budesonide 0.5 mg 09/19/23 20:00 09/19/23 20:56 Budesonide 0.5 Mg/2 Ml Neb INHALATION 0.5 mg BID.RESPIRATORY DONTRELL Administration Calcitonin [place] 100 unit 09/19/23 18:00 09/19/23 18:02 Calcitonin,[place] 200 Unit/Ml Sdv 2ml SUBCUT 100 unit BID DONTRELL Administration Gabapentin 200 mg 09/19/23 21:00 09/19/23 21:15 Gabapentin 100 Mg Capsule PO 200 mg TID DONTRELL Administration Ciprofloxacin/Dextrose 400 mg in 200 mls @ 200 mls/hr 09/19/23 15:45 09/20/23 03:59 Cipro IV Infused Q12H DONTRELL Infusion Protocol Metronidazole 500 mg in 100 mls @ 100 mls/hr 09/19/23 16:00 09/20/23 03:59 Flagyl Iv IV Infused Q8H DONTRELL Infusion Protocol Nicotine 1 patch 09/19/23 17:15 09/19/23 18:02 Nicotine 21 Mg Patch TRANSDERMA 1 patch Q24H DONTRELL Administration Zinc Gluconate 50 mg 09/19/23 18:00 09/19/23 18:55 Zinc Gluconate 50 Mg Tablet PO 50 mg BID DONTRELL Administration PFSH Acute 2 PFSH: Medical History Hematuria COVID-19 Hyperlipidemia Hypothyroidism Surgical History History of back surgery History of lymph node excision History of colonoscopy S/P cholecystectomy S/P hysterectomy Family History Sister , at age 62 Cancer LUNG Mother , AGE78 Diabetes Cancer Ovarian Father , at age 78 CAD (coronary artery disease) Heart attack Social History Smoking and tobacco/nicotine status: current every day tobacco/nicotine user (2 packs a day ) cigarettes Packs smoked per day: 2 Years cigarettes smoked: 47 [ Other cigarette details: Started at age 22] Quit status (tobacco/nicotine): considering quitting Second hand smoke exposure: Yes Alcohol intake: never Substance/Drug Use: never Lives independently: Yes Household members: family and children Housing: House Marital status: / service: No Current occupational status: disabled Pets and animals: Yes Do you think of yourself as: Straight/Heterosexual Current gender identity: Female Vitals/I&O/Wt Last Vital Signs Temp 98.9 F 09/20/23 04:00 Pulse 104 H 09/20/23 06:00 Resp 21 H 09/20/23 04:00 BP 113/74 09/20/23 04:00 Pulse Ox 94 09/20/23 04:00 O2 Del Method Nasal Cannula 09/20/23 04:00 O2 Flow Rate 4 09/20/23 04:00 09/19/23 09/20/23 09/20/23 22:59 06:59 14:59 Intake Total 1371.667 / 2371.667 300 / 2671.667 Balance 1371.667 / 2371.667 300 / 2671.667 Weight last 48 hrs Weight 101.69 kg Weight 99.291 kg Weight 97.976 kg Physical Exam 2 Narrative: Constitutional: She appears generally weak, but she is responding appropriately at this time. Eyes: Sclerae nonicteric. Conjunctivae clear. ENMT: Mouth is very dry. There are no lesions noted in the oral cavity. Neck: Neck shows no mass or thyromegaly. Hematologic/Lymphatic: There is no cervical, clavicular, or axillary adenopathy noted. Respiratory: Lungs show diminished good air movement bilaterally. Breath sounds are coarse bilaterally, and there is slight wheezing. Cardiovascular: Heart tones are distant. The rhythm appears regular. There is no murmur, gallop, or rub noted. Abdomen: Moderately distended and tympanic. Liver does not appear overtly enlarged. Spleen is not palpable. There is no abdominal mass or ascites noted and there is no inguinal adenopathy. Extremities: No edema. Integumentary: No rashes. No suspicious skin lesions noted. Neurologic: No focal neurologic deficits noted. Data 09/20/23 05:45 09/20/23 05:45 A&P Assessment and plan (1) Hypercalcemia of malignancy: Patient with hypercalcemia in association with CT evidence of right hilar mass/lymphadenopathy and extensive liver metastases. As yet we have not established a tissue diagnosis. A high-grade lymphoma certainly is a possibility, as her outpatient laboratory studies had shown a significantly elevated LDH level. Given her smoking history, small cell lung carcinoma would also be a likely possibility. She currently is scheduled to undergo bronchoscopy/EBUS today for biopsy, and we can consider treatment options depending on the pathology findings. If that procedure is not diagnostic, a CT directed liver biopsy would be another possible option for obtaining a tissue diagnosis. Coding Level of Care Code 98891 Diagnoses Hypercalcemia of malignancy E83.52
[2023-09-20] MEDS: HYDROcodone-acetaminophen 5-325 mg Tablet 1 TAB PO (08:05)
[2023-09-20] MEDS: budesonide 0.5 mg/2 mL Neb INHALATION (09:08)
[2023-09-20] MEDS: calcitonin,salmon 200 unit/mL SDV 2mL 100 UNIT SUBCUT ×2 (09:40→17:16)
--- NOTE | 2023-09-20 10:24 | PC.CHAP ---
Pastoral Care Encounter/Spiritual Assessment Type of Contact [] Declined data base administrator visit [] Patient/Family/Request visit [] Outpatient visit [] Follow-up visit [] Physician referral [] Code/Alert [x] Routine visit [] Staff referral [] Actively dying [] Patient sleeping [x] Family support [] [] Out of room [] Palliative care [] [] Receiving care in room [] Pre-surgical visit [] Trauma [] Long length of stay [] ICU visit [] Other: Relational/Emotional Strength [x] Patient feels connected with others/family/visitors/staff [] Distress [] Loneliness/isolation [] Abandonment Spirituality of Patient [] Person of [place] [] Attends Taoism of their [place] [x] Believes in Prayer [] Reads Bible or Confucianism materials [] There are Spiritual issues to be addressed Cataract Lens Generator Interventions [x] Prayer [x] Active listening [x] Non-anxious presence [x] Spiritual/emotional support [] Crisis/trauma care [] Spiritual counseling [] Bereavement support [] Provided bereavement packet [] Provided Bible/devotional materials [] Provided toy/stuffed animal, coloring book to patient or family member [] Provided Communion [] Anointing/[place] [] Salvation [x] Completed spiritual assessment [] Other: Impact on Illness or Injury [] Angry [] Fearful [] Anxious [] Often cries [] Exhaustion [] Unable to work [] Unable to attend druze [] Unable to walk/stand [] Unable to read [] Unable to drive [] Unable to eat/drink [] Unable to sleep [] Unable to be with family [] Patient intubated [] Other: Summary Time spent with patient 10 min
[2023-09-20] MEDS: sodium chloride 0.9% 1,000 ML 30 ML IV (11:59)
--- NOTE | 2023-09-20 12:05 | P.ANESASSM_ITS ---
Pre-Anesthetic Assessment Height/Weight: Height 1.7 m Weight 101.69 kg Temp Pulse Resp BP Pulse Ox O2 Del Method O2 Flow Rate 99.7 F H 111 H 20 H 154/82 92 Nasal Cannula 3 09/20/23 08:00 09/20/23 08:00 09/20/23 08:00 09/20/23 08:00 09/20/23 08:00 09/20/23 08:00 09/20/23 08:00 Preop Diagnosis: Lung mass/SOB Operation Date: 09/20/23 12:00 Proposed Procedures p Ebus(Not Applicable) - Shaggy Sierra DatarMD Was Beta Candy taken within 24 hours: N/A Was Clonidine taken within 24 hours: N/A Last intake: Intake Last Liquid Date 09/19/23 Last Liquid Time 18:30 Last Solid Date 09/19/23 Last Solid Time 17:00 Social No alcohol and No tobacco Exam regular rate & rhythm Confused Airway Submandibular: within normal limits Cervical ROM: within normal limits Mallampati: Class II Dentition: chipped Comments: Comments: Several missing teeth History/ROS No significant history except as noted and No significant complaints Pulmonary Asthma, Chronic Obstructive Pulmonary Disease, Cough and Shortness of Breath CV/HEM Hypertension Chronic Renal Insufficiency Hepatic None reported GI Gastroesophageal Reflux Disease Metabolic Hyperlipidemia, Morbid Obesity and Thyroid Disease Musc/skel Osteoarthritis/DJD Neuropsych Confusion Anesthetic Plan ASA status: 3 Anesthesia: Anesthesia Evaluation and General Risk of > 500 ml blood loss (7ml/kg in children): No Medications/Allergies Home Medications Medication Instructions Recorded Confirmed Last Taken Type albuterol sulfate 90 mcg/actuation 2 puff inhalation Q6H PRN sob 02/04/20 09/19/23 Unknown History aerosol inhaler (ProAir HFA) levothyroxine 50 mcg tablet 50 mcg PO DAILY 02/04/20 09/19/23 09/18/23 History budesonide-formoterol HFA 80 2 puff inhalation BID 12/26/20 09/19/23 09/18/23 History mcg-4.5 mcg/actuation aerosol inhaler (Symbicort) rosuvastatin 10 mg tablet 10 mg PO DAILY 12/11/21 09/19/23 09/18/23 History tiotropium bromide 18 mcg capsule 18 mcg inhalation DAILY 12/11/21 09/19/23 09/18/23 History with inhalation device (Spiriva with HandiHaler) cholecalciferol (vitamin D3) 25 25 mcg PO BID 03/12/22 09/19/23 09/18/23 History mcg (1,000 unit) capsule zinc acetate 50 mg (zinc) capsule 50 mg PO BID 03/12/22 09/19/23 09/18/23 History (Galzin) duloxetine 60 mg capsule,delayed 60 mg PO DAILY 09/17/23 09/19/23 09/18/23 History release aspirin 81 mg tablet,delayed 81 mg PO DAILY 09/19/23 09/19/23 09/18/23 History release cyclobenzaprine 10 mg tablet 10 mg PO Q8H PRN Muscle Pain 09/19/23 09/19/23 09/18/23 History gabapentin 400 mg capsule 400 mg PO TID 09/19/23 09/19/23 09/18/23 History hydrocodone 5 mg-acetaminophen 325 1 tab PO 6XD PRN Pain 09/19/23 09/19/23 09/18/23 History mg tablet meloxicam 15 mg tablet 15 mg PO DAILY 09/19/23 09/19/23 09/18/23 History propranolol 60 mg capsule,24 60 mg PO DAILY 09/19/23 09/19/23 09/18/23 History hr,extended release (Inderal [place]) varenicline 0.5 mg (11)-1 mg (42) See Rx Instructions .Route .COMPLEX 09/19/23 09/19/23 Unknown History tablets in a dose pack Allergies Allergy/AdvReac Type Severity Reaction Status Date / Time Penicillins Allergy Unknown Unknown Verified 09/19/23 10:52 Sulfa (Sulfonamide Allergy Unknown Unknown Verified 09/19/23 10:52 Antibiotics) Current Medications Generic Name Dose Route Start Last Admin Trade Name Freq PRN Reason Stop Dose Admin Hydrocodone Bitart/Acetaminophen 1 tab 09/19/23 17:28 09/20/23 08:05 Hydrocodone-Acetaminophen 5-325 Mg Tablet PO 1 tab 6XD PRN Administration Pain Albuterol/Ipratropium 3 ml 09/19/23 20:00 09/20/23 09:09 Ipratropium-Albuterol 3 Ml Neb INHALATION 3 ml Q6H.RESP DONTRELL Administration Budesonide 0.5 mg 09/19/23 20:00 09/20/23 09:08 Budesonide 0.5 Mg/2 Ml Neb INHALATION 0.5 mg BID.RESPIRATORY DONTRELL Administration Calcitonin [place] 100 unit 09/19/23 18:00 09/20/23 09:40 Calcitonin,[place] 200 Unit/Ml Sdv 2ml SUBCUT 100 unit BID DONTRELL Administration Gabapentin 200 mg 09/19/23 21:00 09/19/23 21:15 Gabapentin 100 Mg Capsule PO 200 mg TID DONTRELL Administration Ciprofloxacin/Dextrose 400 mg in 200 mls @ 200 mls/hr 09/19/23 15:45 09/20/23 03:59 Cipro IV Infused Q12H DONTRELL Infusion Protocol Metronidazole 500 mg in 100 mls @ 100 mls/hr 09/19/23 16:00 09/20/23 03:59 Flagyl Iv IV Infused Q8H DONTRELL Infusion Protocol Sodium Chloride 1,000 mls @ 30 mls/hr 09/20/23 12:00 09/20/23 11:59 Sodium Chloride 0.9% IV 09/21/23 11:59 30 mls/hr .Q24H DONTRELL Administration Nicotine 1 patch 09/19/23 17:15 09/19/23 18:02 Nicotine 21 Mg Patch TRANSDERMA 1 patch Q24H DONTRELL Administration Zinc Gluconate 50 mg 09/19/23 18:00 09/19/23 18:55 Zinc Gluconate 50 Mg Tablet PO 50 mg BID DONTRELL Administration PFSH Anesthesia Medical History Hematuria COVID-19 Hyperlipidemia Hypothyroidism Surgical History History of back surgery History of lymph node excision History of colonoscopy S/P cholecystectomy S/P hysterectomy Family History Sister , at age 62 Cancer LUNG Mother , [id number] Diabetes Cancer Ovarian Father , at age 78 CAD (coronary artery disease) Heart attack Social History Smoking and tobacco/nicotine status: current every day tobacco/nicotine user (2 packs a day ) cigarettes Packs smoked per day: 2 Years cigarettes smoked: 47 [ Other cigarette details: Started at age 22] Quit status (tobacco/nicotine): considering quitting Second hand smoke exposure: Yes Alcohol intake: never Substance/Drug Use: never Lives independently: Yes Household members: family and children Housing: House Marital status: / service: No Current occupational status: disabled Pets and animals: Yes Do you think of yourself as: Straight/Heterosexual Current gender identity: Female Data Anesthesia 09/20/23 05:45 09/20/23 05:45 Short CBC 09/19/23 09/20/23 Range/Units 11:26 05:45 WBC 8.47 7.13 (3.29-11.43) 10^3/uL Hgb 13.20 11.80 (11.27-16.99) g/dL Hct 39.9 36.2 (36-47) % MCV 81.6 L 82.1 L (85-98) fl Plt Count 157 135 L (157-399) 10^3/cmm Neut % (Auto) 67.0 74.7 % Neut # (Auto) 5.68 5.33 (1.8-7.7) 10^3/uL BMP 09/19/23 09/20/23 11:26 05:45 Sodium 133 L 133 L Potassium 5.1 4.0 Chloride 95 L 97 L Carbon Dioxide 27 24 BUN 21 17 Creatinine 0.9 0.7 Glucose 105 112 Calcium 14.0 H* 11.1 H Liver Function 09/19/23 Range/Units 11:26 Total Bilirubin 0.5 (0.15-1.2) mg/dL AST 45 H (0-32) U/L ALT 27 (0-33) U/L Alkaline Phosphatase 381 H (35-105) U/L Albumin 3.3 L (3.5-5.2) g/dL Urine 09/19/23 Range/Units 14:02 Urine Color Yellow (Yellow) Urine Appearance Cloudy A (CLEAR) Urine pH 5 (5-7) Ur Specific [place] 1.025 (1.005-1.030) Urine Protein 1+ H (Negative) Urine Glucose (UA) Norm (Normal) Urine Ketones 1+ H (Negative) Urine Nitrate Negative (Negative) Urine Bilirubin 1+ H (Negative) Ur Leukocyte Esterase 2+ H (Negative) Urine RBC 25-40 H (0-2) /hpf Urine WBC Too numerous to cnt H (0-5) /hpf Cardiac Studies: 2 No Data to Display
[2023-09-20] MEDS: lidocaine 1% INJ 10 mL (per mL) XX (12:21)
--- NOTE | 2023-09-20 13:07 | PM.PN ---
Subjective Subjective: She is doing okay. Although yesterday she told me did not have constipation, has not had a bowel movement in some time, does not remember when the last time was. Vitals/I&O/Wt Last Vital Signs Temp 98.8 F 09/20/23 12:00 Pulse 111 H 09/20/23 12:00 Resp 18 09/20/23 12:00 BP 150/85 09/20/23 12:00 Pulse Ox 91 09/20/23 12:00 O2 Del Method Nasal Cannula 09/20/23 12:00 O2 Flow Rate 3 09/20/23 08:00 09/19/23 09/20/23 09/20/23 22:59 06:59 14:59 Intake Total 1371.667 / 2371.667 300 / 2671.667 Balance 1371.667 / 2371.667 300 / 2671.667 Weight last 48 hrs Weight 101.69 kg Weight 99.291 kg Weight 97.976 kg Physical Exam Narrative: Hard of hearing. Const: COMMON NORMALS: patient oriented x3 and alert GENERAL APPEARANCE: cooperative ORIENTATION/CONSCIOUSNESS: Yes awake HENMT: COMMON NORMALS: oropharynx normal OTHER: Poor dentition Neck/C-Spine: COMMON NORMALS: no JVD Resp: COMMON NORMALS: normal respiratory effort and clear to auscultation bilaterally AUSCULTATION: clear to auscultation bilaterally Cardio: COMMON NORMALS: no JVD, regular rhythm, S1 normal heart sound present, S2 normal heart sound present and No murmurs present (Cardio) RHYTHM: regular rhythm HEART SOUNDS: S1 normal heart sound present and S2 normal heart sound present GI: COMMON NORMALS: Normal to inspection, nondistended, normoactive bowel sounds present, Soft to palpation and non-tender PALPATION: Yes Soft to palpation Extremity: COMMON NORMALS: no joint enlargement and no pedal edema Neuro: COMMON NORMALS: patient oriented x3 and moves all extremities SENSORIUM/ORIENTATION: Yes alert Skin: COMMON NORMALS: no rashes or lesions noted GENERAL SKIN EXAM: no rashes or lesions noted Data 09/20/23 05:45 09/20/23 05:45 Micro: Microbiology 09/19/23 14:02 Urine Culture - Preliminary Urine,Clean Catch A&P Assessment and plan (1) Hypercalcemia of malignancy: Reviewed vitals, calcium, CMP, magnesium, phosphorus. Discussed with her and her family, calcium improving, down to 11.1. Continue calcitonin. Received zoledronic acid. Risk of kidney injury with zoledronic acid, reassess kidney function. Received a dose of Lasix. Hold fluids for now, reassess oxygenation after procedure, decrease rate of IV fluid. Repeat Lasix as needed. Replace hypomagnesemia, hypophosphatemia. Recheck chemistry, recheck phosphorus, recheck magnesium. Follow-up with oncology. Low calcium diet. Hold vitamin D. Cardiac monitoring due to risk of life-threatening arrhythmia.' Reassess renal function due to risk of renal dysfunction/failure. Avoid NSAIDs. (2) UTI (urinary tract infection): Reviewed vitals, CBC. Reviewed urine culture, so far less than 5000 mixed vaginal eliad. With some possibility pneumonia switch back to Levaquin as per discussion with pulmonology. Follow-up urine culture. CT abdomen pelvis, no obstructive uropathy. (3) Infection due to trichomonas: She is , denies any sexual contacts. Unclear source. Treat with Flagyl. (4) Acute encephalopathy: Acute metabolic encephalopathy, suspected combination of severe hypercalcemia, UTI, also will hold varenicline due to its possible adverse effects. Treat underlying causes as above. Reorient. Up with assistance. Fall precautions. (5) Metastatic cancer: Status post bronchoscopy and biopsy today. Noted some hypercapnia and airway tightness during the procedure. Reviewed pulmonology note. Monitor respiratory function after procedure. Per discussion with pulmonology acutely resume prophylactic heparin tonight. Unknown source suspected metastatic cancer, left hilar mass, suspected metastatic disease in the liver, unidentified, possibly unrelated lesion in the inferior pole of the kidney. (6) Goals of care, counseling/discussion: In case of cardiopulmonary arrest would not want CPR. Okay with other care and current medical treatments. Plan Difficulty ambulating: Treat underlying causes of metabolic encephalopathy, hypercalcemia, UTI, PT assessment. Possible postobstructive pneumonia: Samples taken from microbiology during bronchoscopy. Per discussion with pulmonology switch antibiotic from ceftriaxone to Levaquin. Reassess oxygenation. Emphysema: Airway tightness, hypercapnia noted during bronchoscopy and EBUS. Discussed with bookkeeper assistant. Continue scheduled and as needed DuoNebs, budesonide. Requesting BiPAP for nighttime. Received a small dose of Lasix, repeat as needed. Continue oxygen support, titrate to 90-92%. Usually on about 1-1/2 L. Intermittent facial droop: Family noticed some intermittent facial droop, not present at current time, no focal neurologic deficit at current time. Does have risk factors for TIA/CVA including smoking. Discussed risk factor management, importance of smoking cessation. Add telemetry monitoring. Assess carotid duplex, although given overall condition would not be candidate for carotid endarterectomy. Continue aspirin, statin. HLD: Hold statin for now Smoking addiction: Nicotine patch, lozenges as needed. Encourage cessation. RAPHAEL: Could not tolerate CPAP in the past. Returned it. Attestations Medical Necessity Statement*: Continue admission for assessment management of severe hypercalcemia, possible TIA, UTI, possible postobstructive pneumonia with malignancy, status post biopsy, hypercapnia secondary to COPD Diagnoses Hypercalcemia of malignancy E83.52 UTI (urinary tract infection) N39.0 Infection due to trichomonas A59.9 Acute encephalopathy G93.40 Metastatic cancer C79.9 Goals of care, counseling/discussion Z71.89
--- NOTE | 2023-09-20 13:29 | XR_ITS ---
WS: [id number] Exam: XR chest 1V portable [id number] Date/Time of Exam: 09/20/2023 1:53 PM Reason For Exam: post ebus Comparison 09/19/2023. Again noted is a large RIGHT hilar mass. There is increasing infiltrate in the RIGHT lung since the p rior study that may represent postobstructive pneumonia. The lungs are fully expanded. No pleural eff usions. Heart size is normal. There is widening of the mediastinum that may indicate lymphadenopathy. Again noted are tiny micronodular densities throughout both lungs as previously described. Bony stru ctures are intact. IMPRESSION: 1. Large RIGHT hilar mass with increasing infiltrate throughout the RIGHT lung that may represent pos tobstructive pneumonia. 2. Reticular nodular pattern throughout both lungs as discussed above.
[2023-09-20 13:48] LABS: Cyto Order Verification Order Verified
--- NOTE | 2023-09-20 13:54 | P.OP_ITS ---
Operative Report Date of procedure: September 20, 2023 Pre-op diagnosis: Suspected malignancy Post-op diagnosis: same Procedure done: Dx Bronchoscope w/BAL Bronchoscopy w/ therapeutic aspiration of the tracheobronchial tree (clearance of airway secretions, removal of mucus plugs) EBUS Sampling >=3 nodes Surgeon: Shaggy Agustin MD Brief History: Anson Cheney is a 68 year old female-with right hilar/mediastinal lymphadenopthy seen on CT chest and hepatic mets admitted for altered mental status admission labs revealed calcium 14 mg/DL. EKG sinus tachycardia-QTc 401 ; patient received 1 L bolus NS; she is given zolendrenic acid, calcitonin and started on NS at 200 cc/h Patient is a chronic smoker and smoked 3 to 4 packs/day for several years and currently smoking 2 packs/day. She takes Breo and Symbicort as outpatient for her COPD. She is on 2 L supplemental oxygen but noncompliant. Today scheduled for bronchoscopic inspection of airways; possible endobronchial lesions and endobronchial biopsies of hilar/mediastinal lymph node biopsies. Procedure: Dx Bronchoscope w/BAL Bronchoscopy w/ therapeutic aspiration of the tracheobronchial tree (clearance of airway secretions, removal of mucus plugs) EBUS Sampling >=3 nodes Indication: CT evidence of right hilar /mediastinal lymphadenopathy - suspicious for malignancy Anesthesia: General anesthesia managed as per anestheisa team. Local anesthesia: The steph in the right and left mainstem bronchi were anesthetized with 1% lidocaine, 3 mL. Description of the procedure: The procedure was explained to the patient and the consent was obtained. The patient was brought to the OR. The patient underwent induction for general anesthesia and endotracheal tube was placed. The bronchoscope was advanced through the ET tube. The distal trachea was visualized. There were copious amount of secretions seen in right main stem bronchus which were suctioned right away. Tracheal mucosa appeared normal, no endotracheal lesion was seen. The steph was sharp. 1 mL each of 1% lidocaine was instilled in the trachea; right and left mainstem bronchi for local anesthesia. In a systematic manner bilateral bronchial tree was then examined. The bronchoscope was then introduced into the right mainstem bronchus. There are no endobronchial lesions but mucosa in distal right main stem bronchus and proximal segmetal airways of right lower lobe appeared edematous and narrow openings. The right upper lobe is examined up to the third subsegmental level and no abnormalities were identified. There were mucoid secretions which were suctioned right away. The bronchoscope was advanced into the left mainstem bronchus. The left upper lobe, and lingula were examined up to the third subsegmental level and no abnormalities were identified. Mucosa of left upper lobe and lingula appeared normal with no endobronchial lesion. There were clear secretions which were suctioned right away. Bronchoscope was retracted and Endobronchial Ultrasound (EBUS) was introduced. Identified a large hypoechoic mass in 11 L, station 7, station 4R, Station 11 R. There are conglomerate of lymph nodes seen in station 7; station 4R; The mass like lesion is seen encircling superior vena cava in 11R area. Using 19 G [id number] were taken from 11 L, station 7, station 4R, Station 11 R. ; there is some evidence of bleeding which is controlled with instillation of cold saline and Dilute epinephrine. Diagnostic bronchoscope was reintroduced-BAL taken from right lower lobe. After making sure there is no active bleeding, bronchoscope retracted and procedure terminated. Samples: A. EBUS guided Fine-needle aspiration biopsies were taken from station station 11 L, station 7, station 4R and station 11R. 1. Total of 3 passes were made using needle aspiration from station 11 L; all the material was placed in formalin and sent for histopathology 2. Total of 4 passes were made using needle aspiration from station 7; material was placed in formalin and 2 passes were placed in RPMI sent for histopathology 3. Total of 5 passes were made using needle aspiration from station 4R; material was placed in formalin and 2 passes were placed in RPMI sent for histopathology 4. Total of 3 passes were made using needle aspiration from station 11 R; all the material was placed in formalin and sent for histopathology; 1 pass sent in sterile cup for tissue culture. 5. Bronchoalveolar lavage was performed after wedging the bronchoscope at the entrance of Medial segment of right lower lobe. 45 mL of saline was instilled, fluid return was 20 mL. Bronchoalveolar lavage specimen was sent for cell count and differential, gram stain and culture, cytology Complications: None.The patient was extubated and brought to the PACU in stable condition. Disposition: Patient can be transferred to [facility] floor in stable condition. Pt and family are aware that I am going to call them to update final biopsy results once available.
--- NOTE | 2023-09-20 14:10 | ANE.PACU2 ---
Inpatient post-anesthesia follow up: Airway intact: Yes Vital signs: Temperature 97.0 F Pulse Rate 120 Respiratory Rate 20 Blood Pressure 160/83 Pulse Oximetry 91 Oxygen Delivery Me thod Non-Rebreather Oxygen Flow Rate 10 Fraction of Inspir ed Oxygen Hydration adequate: Yes Nausea and vomiting: No Pain level: 1 Mental status: Baseline
[2023-09-20 14:21] LABS: Apprearance, Bronch Wash Bloody (CLEAR); Color, Bronc Wash Red; Total Cells Counted Bronch 100
[2023-09-20 14:23] LABS: Bronch Source Right Lower Lobe
[2023-09-20] MEDS: magnesium sulfate premix 2 GM/50 ML PIGGYBACK IV (15:27)
[2023-09-20] MEDS: levofloxacin-dextrose 5 % 750 MG/150 ML PREMIX 100 MG IV (16:47)
[2023-09-20] MEDS: phosphorus 250 mg Tablet PO (17:18)
[2023-09-20] MEDS: zinc gluconate 50 mg Tablet PO (17:18)
[2023-09-20] MEDS: polyethylene glycol 3350 Pkt 17 gm PO (17:18)
[2023-09-20] MEDS: nicotine 21 mg Patch 1 PATCH TRANSDERMA (17:18)
[2023-09-20] MEDS: bisacodyl 10 mg Supp PR (17:18)
[2023-09-20] MEDS: gabapentin 100 mg Capsule 200 MG PO (22:22)
[2023-09-21] VITALS (11 sets, daily range): BP systolic 116–132; BP diastolic 70–81; PULSE 82–92; RESP 16–22; TEMP 36.4–37.3; O2SAT 92–98
[2023-09-21] MEDS: ipratropium-albuterol 3 mL Neb INHALATION ×3 (02:17→13:22)
[2023-09-21] MEDS: metroNIDAZOLE IV 500 MG/100 ML PREMIX 100 MG IV ×3 (02:32→16:30)
[2023-09-21] MEDS: budesonide 0.5 mg/2 mL Neb INHALATION (08:22)
[2023-09-21] MEDS: HYDROcodone-acetaminophen 5-325 mg Tablet 1 TAB PO ×2 (10:28→16:29)
[2023-09-21] MEDS: gabapentin 100 mg Capsule 200 MG PO ×3 (10:29→20:15)
[2023-09-21] MEDS: polyethylene glycol 3350 Pkt 17 gm PO ×2 (10:29→16:29)
[2023-09-21] MEDS: heparin 5,000 unit/mL INJ 1 mL 5000 UNIT SUBCUT ×2 (10:30→20:16)
[2023-09-21] MEDS: phosphorus 250 mg Tablet PO ×2 (10:30→16:29)
[2023-09-21] MEDS: levothyroxine 50 mcg Tablet PO (10:30)
[2023-09-21] MEDS: duloxetine 60 mg Capsule PO (10:30)
[2023-09-21] MEDS: calcitonin,salmon 200 unit/mL SDV 2mL 100 UNIT SUBCUT ×2 (10:30→16:29)
[2023-09-21] MEDS: aspirin 81 mg EC Tablet PO (10:30)
[2023-09-21] MEDS: zinc gluconate 50 mg Tablet PO ×2 (10:30→16:29)
[2023-09-21] MEDS: nicotine 21 mg Patch 1 PATCH TRANSDERMA (16:28)
[2023-09-21] MEDS: levofloxacin-dextrose 5 % 750 MG/150 ML PREMIX 100 MG IV (16:29)
[2023-09-21 17:31] LABS: Basophils % 0.3 %; Eosinophils % 0.5 %; Hematocrit 34.3 % (36-47); Lymphocytes # 1.8 10^3/uL (0.8-4.8); Lymphocytes % 20.2 %; Mean Corpuscular HGB Conc 32.1 g/dL (30-55); Mean Corpuscular Hemoglobin 26.8 pg (27-33); Mean Corpuscular Volume 83.7 fl (85-98); Monocytes # 0.5 10^3/uL (0.2-0.9); Monocytes % 5.1 %; Neutrophils # 6.12 10^3/uL (1.8-7.7); Neutrophils % 69.8 %; Nucleated Red Blood Cells % 0.3 %; Platelet Count 153 10^3/cmm (157-399); Red Cell Distribution Width 14.7 % (12.1-15.1); White Blood Count 8.77 10^3/uL (3.29-11.43)
[2023-09-21 17:56] LABS: Anion Gap 15.5 (5-19); Blood Urea Nitrogen 26 mg/dL (8-23); Calcium 9.7 mg/dL (8.5-10.5); Carbon Dioxide 24 mmol/L (22-29); Chloride 99 mmol/L (98-107); Glomerular Filtration Rate 83.5 mL/min (90-130); Glucose 143 mg/dL (65-115); Magnesium 1.5 mg/dL (1.7-2.3); Osmolality Calculated 287 mOsm/kg (285-295); Phosphorus 1.1 mg/dL (2.5-4.5); Potassium 3.5 mmol/L (3.5-5.1); Sodium 135 mmol/L (136-145)
--- NOTE | 2023-09-21 19:25 | P.PN_ITS ---
Subjective 2 Subjective: Today she feels she is improving, feeling stronger. She is more alert. Tolerating clinical diet, would like to advance. Vitals/I&O/Wt Last Vital Signs Temp 97.9 F 09/21/23 11:59 Pulse 90 09/21/23 13:22 Resp 18 09/21/23 13:22 BP 116/70 09/21/23 11:59 Pulse Ox 98 09/21/23 13:22 O2 Del Method Nasal Cannula 09/21/23 13:22 O2 Flow Rate 6 09/21/23 13:22 FiO2 40 09/21/23 02:18 09/21/23 09/21/23 09/21/23 06:59 14:59 22:59 Intake Total 100 / 1160 460 / 460 101.667 / 561.667 Output Total 375 / 375 300 / 300 Balance -275 / 785 460 / 460 -198.333 / 261.667 Weight last 48 hrs Weight 101.69 kg Weight 101.69 kg Physical Exam 2 Narrative: Hard of hearing. Accompanied by family. Const: COMMON NORMALS: patient oriented x3 and alert GENERAL APPEARANCE: c ooperative ORIENTATION/CONSCIOUSNESS: Yes awake HENMT: COMMON NORMALS: oropharynx normal OTHER: Poor dentition Neck/C-Spine: COMMON NORMALS: no JVD Resp: COMMON NORMALS: normal respiratory effort and clear to auscultation bilaterally AUSCULTATION: clear to auscultation bilaterally Cardio: COMMON NORMALS: no JVD, regular rhythm, S1 normal heart sound present, S2 normal heart sound present and No murmurs present (Cardio) RHYTHM: regular rhythm HEART SOUNDS: S1 normal heart sound present and S2 normal heart sound present GI: COMMON NORMALS: Normal to inspection, nondistended, normoactive bowel sounds present, Soft to palpation and non-tender PALPATION: Yes Soft to palpation Extremity: COMMON NORMALS: no joint enlargement and no pedal edema Neuro: COMMON NORMALS: patient oriented x3 and moves all extremities S ENSORIUM/ORIENTATION: Yes alert Skin: COMMON NORMALS: no rashes or lesions noted GENERAL SKIN EXAM: no rashes or lesions noted Urinary Catheter Management: Salvador: Cath Placed During This Visit: yes Reason for Continuing Indwelling Catheter: Accurate Measurement of Urinary Output in Critically Ill Patients Urinary Catheter Date of Insertion: 09/20/23 Data 09/21/23 16:51 09/21/23 16:51 Micro: Microbiology 09/20/23 13:20 Gram Stain - Final Lung - #1 Tissue Culture - Preliminary 09/20/23 13:24 Gram Stain - Final Lung Right Lower Lobe Bronchial Washings Culture - Preliminary 09/19/23 14:02 Urine Culture - Final Urine,Clean Catch A&P Assessment and plan (1) Hypercalcemia of malignancy: Labs not available this morning. Had to be redrawn. Reviewed vitals, CBC. Reviewed calcium, phosphorus, magnesium. Calcium noted with improvement, down to 9.7. Both hypophosphatemia and hypomagnesemia present. Replace. Recheck labs. Reviewed vitals, calcium, CMP, magnesium, phosphorus. Continue calcitonin. Received zoledronic acid. Risk of kidney injury with zoledronic acid, reassess kidney function. As hypoxia had not significantly improved, had not resumed IV fluids for now. Calcium is better. Repeat chest x-ray. Repeat Lasix as needed. Follow-up with oncology. Low calcium diet. Hold vitamin D. Cardiac monitoring due to risk of life-threatening arrhythmia.' Reassess renal function due to risk of renal dysfunction/failure. Avoid NSAIDs. (2) UTI (urinary tract infection): Reviewed CBC. Reviewed urine culture, noted superficial elida. Continue empiric antibiotic coverage for now for both possible pneumonia and UTI. (3) Metastatic cancer: Follow-up pathology. Continue treatment for possible postobstructive pneumonia.Reviewed sputum culture, no growth on day 1. Continue Levaquin. Status post bronchoscopy and biopsy today. Noted some hypercapnia and airway tightness during the procedure. Reviewed pulmonology note. Monitor respiratory function after procedure. Per discussion with pulmonology acutely resume prophylactic heparin tonight. Unknown source suspected metastatic cancer, left hilar mass, suspected metastatic disease in the liver, unidentified, possibly unrelated lesion in the inferior pole of the kidney. (4) Infection due to trichomonas: She is , denies any sexual contacts. Unclear source. Treat with Flagyl. (5) Acute encephalopathy: Acute metabolic encephalopathy, suspected combination of severe hypercalcemia, UTI, also will hold varenicline due to its possible adverse effects. Treat underlying causes as above. Reorient. Up with assistance. Fall precautions. (6) Goals of care, counseling/discussion: In case of cardiopulmonary arrest would not want CPR. Okay with other care and current medical treatments. Plan Difficulty ambulating: Treat underlying causes of metabolic encephalopathy, hypercalcemia, UTI, PT assessment. Possible postobstructive pneumonia: Samples taken from microbiology during bronchoscopy. Per discussion with pulmonology switch antibiotic from ceftriaxone to Levaquin. Reassess oxygenation. Emphysema: Airway tightness, hypercapnia noted during bronchoscopy and EBUS. Discussed with parking attendant. Continue scheduled and as needed DuoNebs, budesonide. Requesting BiPAP for nighttime. Received a small dose of Lasix, repeat as needed. Continue oxygen support, titrate to 90-92%. Usually on about 1-1/2 L. Intermittent facial droop: Assess carotid duplex.Monitor on telemetry. Family noticed some intermittent facial droop, not present at current time, no focal neurologic deficit at current time. Does have risk factors for TIA/CVA including smoking. Discussed risk factor management, importance of smoking cessation. Continue aspirin, statin. HLD: Hold statin for now Smoking addiction: Nicotine patch, lozenges as needed. Encourage cessation. RAPHAEL: Could not tolerate CPAP in the past. Returned it. Attestations 2 Medical Necessity Statement*: Continue admission for assessment management of hypoxia, possible post- obstructive PNA, possible TIA, UTI, status post lung mass biopsy, hypercapnia secondary to COPD. Diagnoses Hypercalcemia of malignancy E83.52 UTI (urinary tract infection) N39.0 Metastatic cancer C79.9 Infection due to trichomonas A59.9 Acute encephalopathy G93.40 Goals of care, counseling/discussion Z71.89
[2023-09-21] MEDS: magnesium sulfate premix 4 GM/100 ML PREMIX IV (20:17)
[2023-09-22] VITALS (11 sets, daily range): BP systolic 114–131; BP diastolic 72–79; PULSE 83–95; RESP 16–18; TEMP 36.4–36.6; O2SAT 90–98
[2023-09-22] MEDS: metroNIDAZOLE IV 500 MG/100 ML PREMIX 100 MG IV ×2 (00:27→10:04)
[2023-09-22] MEDS: ipratropium-albuterol 3 mL Neb INHALATION ×3 (02:45→13:09)
--- NOTE | 2023-09-22 06:00 | USR_ITS ---
PROCEDURE INFORMATION: Exam: US Duplex Bilateral Extracranial Arteries; Complete; Carotid Arteries Exam date and time: 09/22/2023 7:54 AM Age: 68 years old Clinical indication: Other: TIA TECHNIQUE: Imaging protocol: Real-time duplex ultrasound scan of the bilateral extracranial arteries combining mckeon scale, color Doppler and spectral waveform analysis with image documentation. Complete exam. Exam focused on the carotid arteries. COMPARISON: US soft tissue head neck [id number] 02/11/2020 2:29 PM FINDINGS: Right common carotid artery: Unremarkable. No occlusion or stenosis. Waveforms are normal. Right internal carotid artery: Unremarkable. No occlusion or stenosis. Waveforms are normal. Right ICA/CCA ratio: Within normal limits. Right external carotid artery: No stenosis in the origin. Right vertebral artery: Unremarkable. Antegrade flow. Left common carotid artery: Unremarkable. No occlusion or stenosis. Waveforms are normal. Left internal carotid artery: Unremarkable. No occlusion or stenosis. Waveforms are normal. Left ICA/CCA ratio: Within normal limits. Left external carotid artery: No stenosis in the origin. Left vertebral artery: Unremarkable. Antegrade flow. US/CV carotid duplex BI* [id number] IMPRESSION: No carotid arterial stenosis. REFERENCES: SRU CRITERIA. The degree of internal carotid artery stenosis is based on criteria defined by the Society of [employer]iologists in Ultras[employer] (SRU). Normal is no stenosis. Mild is less than 50% stenosis. Moderate is 50-69% stenosis. Severe is greater than 69% stenosis to near occlusion. Near occlusion is a markedly narrowed lumen. Total occlusion is no detectable patent lumen.
--- NOTE | 2023-09-22 06:00 | XRR_ITS ---
PROCEDURE INFORMATION: Exam: XR Chest Exam date and time: 09/22/2023 9:16 AM Age: 68 years old Clinical indication: Hyperventilation; Additional info: Hypoxia TECHNIQUE: Imaging protocol: Radiologic exam of the chest. Views: 1 view. COMPARISON: CR XR chest 1V portable [id number] 09/20/2023 1:57 PM FINDINGS: Lungs: There is a right hilar mass again seen. There appears to be decreased additional right lung infiltrate when compared with the prior exam. Pleural spaces: Unremarkable. No pleural effusion. No pneumothorax. Heart/Mediastinum: Unremarkable. No cardiomegaly. Bones/joints: Unremarkable. XR/XR chest 1V portable [id number] IMPRESSION: Right hilar mass again seen. Decreased additional right lung infiltrate.
[2023-09-22 06:27] LABS: Basophils % 0.4 %; Eosinophils # 0.1 10^3/uL (0.0-0.8); Eosinophils % 0.9 %; Hematocrit 32.9 % (36-47); Lymphocytes # 1.6 10^3/uL (0.8-4.8); Lymphocytes % 20.3 %; Mean Corpuscular HGB Conc 32.5 g/dL (30-55); Mean Corpuscular Hemoglobin 26.9 pg (27-33); Mean Corpuscular Volume 82.7 fl (85-98); Mean Platelet Volume 9.9 fL (7.4-10.4); Monocytes # 0.4 10^3/uL (0.2-0.9); Neutrophils # 5.32 10^3/uL (1.8-7.7); Neutrophils % 68.5 %; Nucleated Red Blood Cells % 0.4 %; Platelet Count 142 10^3/cmm (157-399); Red Blood Count 3.98 10^6/uL (3.85-5.65); Red Cell Distribution Width 14.6 % (12.1-15.1); White Blood Count 7.77 10^3/uL (3.29-11.43)
[2023-09-22 06:47] LABS: Anion Gap 11.7 (5-19); Blood Urea Nitrogen 19 mg/dL (8-23); Carbon Dioxide 26 mmol/L (22-29); Chloride 99 mmol/L (98-107); Glomerular Filtration Rate 99.7 mL/min (90-130); Glucose 109 mg/dL (65-115); Magnesium 1.7 mg/dL (1.7-2.3); Osmolality Calculated 279 mOsm/kg (285-295); Potassium 3.7 mmol/L (3.5-5.1); Sodium 133 mmol/L (136-145)
[2023-09-22] MEDS: budesonide 0.5 mg/2 mL Neb INHALATION (08:29)
--- NOTE | 2023-09-22 09:47 | CTR_ITS ---
PROCEDURE INFORMATION: Exam: CT Head Without Contrast Exam date and time: 09/22/2023 10:57 AM Age: 68 years old Clinical indication: Other: TIA TECHNIQUE: Imaging protocol: Computed tomography of the head without contrast. Radiation optimization: All CT scans at this facility use at least one of these dose optimization techniques: automated exposure control; mA and/or kV adjustment per patient size (includes targeted exams where dose is matched to clinical indication); or iterative reconstruction. COMPARISON: US CV carotid duplex BI* [id number] 09/22/2023 7:54 AM RADIATION DOSE METRICS: Total DLP (mGy-cm): 1062.78 FINDINGS: Brain: There is mild small vessel disease. There is no evidence of acute parenchymal hemorrhage, extra-axial collection, or acute infarction. There is no mass effect, midline shift, or downward herniation. Cerebral ventricles: No ventriculomegaly. Paranasal sinuses: Right maxillary sinus mucous retention cysts are identified. Mastoid air cells: Bilateral mastoid and middle ear cavity effusions are identified. Bones/joints: Unremarkable. No acute fracture. Soft tissues: Unremarkable. CT/CT head wo con* [id number] IMPRESSION: Mild small vessel disease. No evidence of acute intracranial process.
[2023-09-22] MEDS: phosphorus 250 mg Tablet PO (10:02)
[2023-09-22] MEDS: HYDROcodone-acetaminophen 5-325 mg Tablet 1 TAB PO (10:02)
[2023-09-22] MEDS: duloxetine 60 mg Capsule PO (10:03)
[2023-09-22] MEDS: zinc gluconate 50 mg Tablet PO (10:03)
[2023-09-22] MEDS: levothyroxine 50 mcg Tablet PO (10:03)
[2023-09-22] MEDS: aspirin 81 mg EC Tablet PO (10:03)
[2023-09-22] MEDS: gabapentin 100 mg Capsule 200 MG PO (10:03)
[2023-09-22] MEDS: heparin 5,000 unit/mL INJ 1 mL 5000 UNIT SUBCUT (10:04)
[2023-09-22] MEDS: magnesium sulfate premix 2 GM/50 ML PIGGYBACK IV (12:32)
[2023-09-22] MEDS: potassium phosphate (mMol PO4) 15 MMOL in sodium chloride 0.9% (100 ml) 100 ML 42 MMOL IV (12:32)
--- NOTE | 2023-09-22 16:49 | PM.DCS ---
Discharge Providers Date of Admission: 09/19/23 13:30 Date of Discharge: September 22, 2023 Attending Provider at Admission: Ky Fontenot Attending Provider at Discharge: Ky Fontenot Primary Care Provider: Faby Kumar MD Diagnoses at Discharge Discharge Diagnosis (1) Hypercalcemia of malignancy: Status: Acute (2) UTI (urinary tract infection): Status: Acute (3) Metastatic cancer: Status: Acute (4) Infection due to trichomonas: Status: Acute (5) Acute encephalopathy: Status: Acute (6) Goals of care, counseling/discussion: Status: Acute Reason for Visit Reason for Visit: sent from dr da silva labs Brief History: 68-year-old lady hard of hearing with smoking disorder, hypothyroidism, hyperlipidemia, left lung mass currently in the process of arrangements for diagnostic tissue sampling, urgently biopsy is planned for next Saturday, has been having calcium elevated at 11.7 on 09/07, with shortness of breath, fatigue, difficulty walking, episodes of confusion, was referred for assessment in ER by her primary provider, they are noted to have worsened hypercalcemia, calcium up to 14, with recently rapid weight loss, losing 12 pounds over the last 12 days, with confusion, CT chest from 09/16 indicating possible lymphoma concern for possibility of high-grade lymphoma initially transfer was attempted to [facility] from the ER by ER physician, however, transfer not accepted stating that diagnosis would not be quicker than here, and not until hypercalcemia treated, so admission arranged here first on discussion with heme-onc, pulmonology, patient's PCP and patient and family. In ER additionally UA coming back suspicious for UTI. Urine WBC too numerous to count, RBC 25-40, also urine trichomonas. She is a and denies any sexual encounters since her 's passing. Hospital Course Hospital Course She was treated with IV fluids, calcitonin, received zoledronic acid with discussion of risks including osteonecrosis for severe hypercalcemia. Treated with antibiotic for suspected urinary tract infection. Initially with ciprofloxacin, subsequently with consideration of possible superimposed postobstructive pneumonia with lung mass antibiotic was changed to Levaquin. Urine culture eventually did not grow anything remarkable. Was treated with Flagyl for possible hemodialysis although denied any source of exposure. Was seen by heme-onc, pulmonology, etiology of the mass, liver lesions, renal mass are not clear yet. She underwent bronchoscopy with EBUS, biopsy of the lung lesion, pathology pending. Consideration of biopsy of liver lesions in case unrevealing. Hypercalcemia has resolved, calcium today is 9. Required supplementation for hypophosphatemia, hypomagnesemia. Acute encephalopathy on presentation has resolved with treatments, she has been getting up and ambulating to the restroom and back in her room. Family also report associated intermittent unilateral facial droop, although this was not witnessed, this reportedly resolved spontaneously, possibly associated with encephalopathy, but cannot exclude TIA. CT head obtained, unremarkable, otherwise exam nonfocal. Carotid duplex unremarkable. No atrial fibrillation on EKG. She continues on aspirin, statin, counseled on quitting smoking completely. Due to risk of stroke, as well as other comorbidities. Counseled to monitor blood pressures. She is asked to stop meloxicam as it may increase risk of stroke. Please follow-up. Consider retrial of treatment of RAPHAEL, which may also increase her risk of stroke. Did not tolerate CPAP in the past. She is feeling much better, would like to return home. Arranging for discharge. Instructed to continue low calcium diet, avoid calcium supplementation, stop vitamin D for now. Please follow-up calcium levels, please follow-up oxygenation, possible pneumonia, does have underlying emphysema as well as suspected COPD. Given prescription for DuoNebs for her nebulizer. Reduce/avoid medications that may contribute to mental status changes. Please reassess also hypophosphatemia, hypomagnesemia. She is given phosphorus supplements, instructed to continue magnesium supplementation. Reassess ambulation, functional capacity. Continue diagnostic pursuit of lung mass, liver lesions, renal mass. Follow-up with your primary doctor regarding difficulty hearing, arrangements for hearing aids. Physical Exam Narrative: Hard of hearing. Accompanied by family. Const: COMMON NORMALS: patient oriented x3 and alert GENERAL APPEARANCE: cooperative ORIENTATION/CONSCIOUSNESS: Yes awake HENMT: COMMON NORMALS: oropharynx normal OTHER: Poor dentition Neck/C-Spine: COMMON NORMALS: no JVD Resp: COMMON NORMALS: normal respiratory effort and clear to auscultation bilaterally AUSCULTATION: clear to auscultation bilaterally Cardio: COMMON NORMALS: no JVD, regular rhythm, S1 normal heart sound present, S2 normal heart sound present and No murmurs present (Cardio) RHYTHM: regular rhythm HEART SOUNDS: S1 normal heart sound present and S2 normal heart sound present GI: COMMON NORMALS: Normal to inspection, nondistended, normoactive bowel sounds present, Soft to palpation and non-tender PALPATION: Yes Soft to palpation Extremity: COMMON NORMALS: no joint enlargement and no pedal edema Neuro: COMMON NORMALS: patient oriented x3 and moves all extremities SENSORIUM/ORIENTATION: Yes alert Skin: COMMON NORMALS: no rashes or lesions noted GENERAL SKIN EXAM: no rashes or lesions noted Urinary Catheter Management: Salvador: Cath Placed During This Visit: yes Reason for Continuing Indwelling Catheter: Other Urinary Catheter Date of Insertion: 09/20/23 Discharge Data Studies Completed and Pending Completed Studies During Hospitalization Category Date Time Status CT head wo con* [id number] Routine Cat Scan 09/22/23 09:[address] kidney stone [id number] Stat Cat Scan 09/19/23 15:42 Completed CXRP [XR chest 1V portable [id number]] Routine Exams 09/20/23 13:29 Completed XR chest 1V portable [id number] Routine Exams 09/22/23 06:00 Completed XR chest 1V portable [id number] Stat Exams 09/19/23 11:01 Completed CV carotid duplex BI* [id number] Routine Ultrasound 09/22/23 06:00 Completed Pending at discharge Category Date Time Status Bronch Washing Culture & GS Routine Lab 09/20/23 13:24 Results PTH Related Peptide (Protein) Routine Lab 09/21/23 11:40 Received Tissue Culture and Gram Stain Routine Lab 09/20/23 13:20 Results Cytology [PTH] Routine Pth 09/20/23 13:36 Received Pathology: Surgical [PTH] Routine Pth 09/20/23 13:40 Received Radiology Impressions Abdomen/Pelvis CT 09/19/23 15:42 IMPRESSION: 1. Partially visualized right infrahilar mass with extensive hepatic metastatic disease. 2. Indeterminate left lateral renal lesion, possibly hemorrhagic or proteinaceous cyst. Follow-up multiphase CT or MRI of the abdomen with/without contrast is recommended to exclude a solid mass. No hydronephrosis of either kidney or inflammatory changes. 3. Lobulated opacities in the right lower lobe, possibly representing spread of neoplasm versus postobstructive pneumonia in the proper clinical setting. The findings were verbally communicated by telephone with KY Marquez at 4:21 PM WAXING MACHINE OPERATOR on 09/19/2023. The findings were acknowledged and understood. Carotid Doppler Study 09/22/23 06:00 IMPRESSION: No carotid arterial stenosis. REFERENCES: SRU CRITERIA. The degree of internal carotid artery stenosis is based on criteria defined by the Society of Radiologists in Ultrasound (SRU). Normal is no stenosis. Mild is less than 50% stenosis. Moderate is 50-69% stenosis. Severe is greater than 69% stenosis to near occlusion. Near occlusion is a markedly narrowed lumen. Total occlusion is no detectable patent lumen. Chest X-Ray 09/22/23 06:00 IMPRESSION: Right hilar mass again seen. Decreased additional right lung infiltrate. Head CT 09/22/23 09:47 IMPRESSION: Mild small vessel disease. No evidence of acute intracranial process. Laboratory Results WBC 7.77 10^3/uL (3.29-11.43) 09/22/23 06:20 RBC 3.98 10^6/uL (3.85-5.65) 09/22/23 06:20 Hgb 10.70 g/dL (11.27-16.99) L 09/22/23 06:20 Hct 32.9 % (36-47) L 09/22/23 06:20 MCV 82.7 fl (85-98) L 09/22/23 06:20 MCH 26.9 pg (27-33) L 09/22/23 06:20 MCHC 32.5 g/dL (30-55) 09/22/23 06:20 RDW 14.6 % (12.1-15.1) 09/22/23 06:20 Plt Count 142 10^3/cmm (157-399) L 09/22/23 06:20 MPV 9.9 fL (7.4-10.4) 09/22/23 06:20 Neut % (Auto) 68.5 % 09/22/23 06:20 Lymph % (Auto) 20.3 % 09/22/23 06:20 Tillman % (Auto) 5.0 % 09/22/23 06:20 Eos % (Auto) 0.9 % 09/22/23 06:20 Baso % (Auto) 0.4 % 09/22/23 06:20 Neut # (Auto) 5.32 10^3/uL (1.8-7.7) 09/22/23 06:20 Lymph # (Auto) 1.6 10^3/uL (0.8-4.8) 09/22/23 06:20 Tillman # (Auto) 0.4 10^3/uL (0.2-0.9) 09/22/23 06:20 Eos # (Auto) 0.1 10^3/uL (0.0-0.8) 09/22/23 06:20 Baso # (Auto) 0.0 10^3/uL (0.0-0.1) 09/22/23 06:20 Nucleated RBC % (auto) 0.4 % 09/22/23 06:20 Nucleated RBCs # 0.0 /100WBC 09/22/23 06:20 Sodium 133 mmol/L (136-145) L 09/22/23 06:20 Potassium 3.7 mmol/L (3.5-5.1) 09/22/23 06:20 Chloride 99 mmol/L (98-107) 09/22/23 06:20 Carbon Dioxide 26 mmol/L (22-29) 09/22/23 06:20 Anion Gap 11.7 (5-19) 09/22/23 06:20 BUN 19 mg/dL (8-23) 09/22/23 06:20 Creatinine 0.6 mg/dL (0.5-0.9) 09/22/23 06:20 GFR Calculation 99.7 mL/min (90-130) 09/22/23 06:20 Glucose 109 mg/dL (65-115) 09/22/23 06:20 POC Glucose 101 mg/dL (70-110) 09/19/23 11:47 Calculated Osmolality 279 mOsm/kg (285-295) L 09/22/23 06:20 Calcium 9.0 mg/dL (8.5-10.5) 09/22/23 06:20 Phosphorus 1.0 mg/dL (2.5-4.5) L 09/22/23 06:20 Magnesium 1.7 mg/dL (1.7-2.3) 09/22/23 06:20 Total Bilirubin 0.5 mg/dL (0.15-1.2) 09/19/23 11:26 AST 45 U/L (0-32) H 09/19/23 11:26 ALT 27 U/L (0-33) 09/19/23 11:26 Alkaline Phosphatase 381 U/L (35-105) H 09/19/23 11:26 Total Protein 7.1 g/dL (6.6-8.7) 09/19/23 11: Albumin 3.3 g/dL (3.5-5.2) L 09/19/23 11:26 Globulin 3.8 g/dL (1.3-4.6) 09/19/23 11: TSH 3.91 uIU/mL (0.27-4.20) 09/19/23 11:26 PTH Related Protein Cancelled 09/20/23 16:56 Urine Color Yellow (Yellow) 09/19/23 14:02 Urine Appearance Cloudy (CLEAR) A 09/19/23 14:02 Urine pH 5 (5-7) 09/19/23 14:02 Ur Specific [place] 1.025 (1.005-1.030) 09/19/23 14:02 Urine Protein 1+ (Negative) H 09/19/23 14:02 Urine Glucose (UA) Norm (Normal) 09/19/23 14:02 Urine Ketones 1+ (Negative) H 09/19/23 14:02 Urine Blood 2+ (Negative) H 09/19/23 14:02 Urine Nitrate Negative (Negative) 09/19/23 14:02 Urine Bilirubin 1+ (Negative) H 09/19/23 14:02 Urine Urobilinogen 1 mg/dL (Negative) H 09/19/23 14:02 Ur Leukocyte Esterase 2+ (Negative) H 09/19/23 14:02 Urine RBC 25-40 /hpf (0-2) H 09/19/23 14:02 Urine WBC Too numerous to cnt /hpf (0-5) H 09/19/23 14:02 Ur Squamous Epith Cells 5-10 /hpf (0-5) H 09/19/23 14:02 Amorphous Sediment Not Reportable 09/19/23 14:02 Urine Bacteria 1+ /hpf (NONE) H 09/19/23 14:02 Urine Mucus 2+ /hpf 09/19/23 14:02 Urine Trichomonas 2+ /hpf H 09/19/23 14:02 Bronch Specimen Source Right lower lobe 09/20/23 13:24 Bronchial Fluid Color Red 09/20/23 13:24 Bronchial Fluid Appearance Bloody (CLEAR) 09/20/23 13:24 Bronch Cells Counted 100 09/20/23 13:24 Bronchial Neutrophils 49.00 % (0.9-2.3) H 09/20/23 13:24 Bronchial Lymphocytes 24.00 % (10.71-12.91) H 09/20/23 13:24 Bronchial Macrophages 27.00 % (83.6-86.8) L 09/20/23 13:24 Vitals Last Vital Signs Temp 97.6 F 09/22/23 12:00 Pulse 86 09/22/23 13:15 Resp 16 09/22/23 13:09 BP 120/72 09/22/23 12:00 Pulse Ox 94 09/22/23 13:09 O2 Del Method Nasal Cannula 09/22/23 13:09 O2 Flow Rate 1.5 09/22/23 13:09 FiO2 40 09/21/23 02:18 Discharge Plan Discharge Patient Disposition: Home Condition: Stable Prescriptions: New Phospha 250 Neutral 250 mg Tablet 1 tab PO BID Qty: 8 0RF levofloxacin 750 mg tablet 750 mg PO DAILY 5 Days Qty: 5 0RF nicotine 21 mg/24 hr Patch 24 Hour 1 patch transdermal Q24H Qty: 90 1RF nicotine (polacrilex) 4 mg Lozenge 4 mg mucous membrane Q4H PRN (Reason: Nicotine Cravings) Qty: 90 2RF polyethylene glycol 3350 17 gram Powder In Packet 17 g PO DAILY Qty: 30 0RF ipratropium-albuterol 0.5 mg-3 mg(2.5 mg base)/3 mL solution for nebulization 3 ml inhalation Q6H PRN (Reason: shortness of breath or wheezing) Qty: 180 0RF metronidazole 500 mg tablet 500 mg PO TID Qty: 9 0RF Continued budesonide-formoterol [Symbicort] 80-4.5 mcg/actuation HFA aerosol inhaler 2 puff inhalation BID albuterol sulfate [ProAir HFA] 90 mcg/actuation HFA aerosol inhaler 2 puff INHALATION Q6H PRN (Reason: sob) levothyroxine 50 mcg tablet 50 mcg PO DAILY Galzin 50 mg (zinc) capsule 50 mg PO BID duloxetine 60 mg capsule,delayed release(DR/EC) 60 mg PO DAILY cyclobenzaprine 10 mg tablet 10 mg PO Q8H PRN (Reason: Muscle Pain) hydrocodone-acetaminophen 5-325 mg tablet 1 tab PO 6XD PRN (Reason: Pain) Inderal LA 60 mg capsule,extended release 24 hr 60 mg PO DAILY gabapentin 400 mg capsule 400 mg PO TID Aspir-81 81 mg Tablet,Delayed Release (Dr/Ec) 81 mg PO DAILY tiotropium bromide [Spiriva with HandiHaler] 18 mcg capsule, w/inhalation device 18 mcg INHALATION DAILY Changed rosuvastatin 10 mg tablet 20 mg PO DAILY Qty: 90 0RF Discontinued cholecalciferol (vitamin D3) 25 mcg (1,000 unit) capsule 25 mcg PO BID meloxicam 15 mg tablet 15 mg PO DAILY varenicline 0.5 mg (11)- 1 mg (42) tablets,dose pack See Rx Instructions .ROUTE .COMPLEX Rx Instructions: Take as directed per package instructions. Discharge Orders: Discharge Order (Routine); Ordered 09/22/23 Ordered By: Ky Fontenot Referrals: Faby Kumar MD [Primary Care Provider] - 4-7 days Jamie Connolly MD [Hospitalist] - 4-7 days (hypercalcemia of malignancy, s/p L hilar mass biopsy) Discharge Diet: As Directed Discharge Activity: Increase activity as tolerated and Oxygen as instructed Patient Instructions: Metronidazole (By mouth), Levofloxacin (By mouth) (Levaquin, Levaquin Leva-feliberto), Zoledronic Acid (By injection), How to Stop Smoking (GEN), Trichomoniasis (GEN), Cigarette Smoking and Your Health (GEN), Using Oxygen at Home (GEN), Bacterial Pneumonia (GEN), Altered Mental Status (ED), Hypercalcemia (GEN) Activity Restrictions/Additional Instructions: Follow-up with your primary doctor as well as cancer doctor for results of biopsy of the lung mass. Follow-up regarding liver lesions, kidney lesion. Follow-up with your primary doctor and cancer doctor regarding elevated calcium level related to cancer. He received zoledronic acid, this medication may need to be repeated depending on follow-up calcium levels. Avoid calcium supplementation, avoid multivitamins that may contain calcium. Stop vitamin D supplementation for now. Discuss with your doctors. Follow-up with your primary doctor for reassessment of suspected superimposed pneumonia, complete antibiotic course with Levaquin. Initially there was some suspicion of urinary tract infection, but urine culture did not grow any bacteria. Follow-up with your primary doctor for finding of trichomonas infection, complete course with Flagyl. Avoid sexual contact until treated, usually sexual contact would need to be treated as well if there were any. Discuss with your primary doctor. Avoid/reduce medications that may alter your mental status. Likely would not go back to varenicline. Continue attempts to stop smoking. You are prescribed nicotine patches, lozenges. Continue to work with your primary doctor. Follow-up with your primary doctor for reassessment of emphysema. Continue oxygen, target oxygen saturation 88-92%. Avoid overly high oxygen saturation. Please never smoked anywhere near oxygen due to risk of fire hazard and severe airway quintero. Follow-up with your primary doctor regarding intermittent facial droop. Continue aspirin and cholesterol medication. Please discuss with your primary doctor consideration of additional workup. This may have been related to metabolic normality and calcium, but cannot exclude possible transient ischemic attack. CAT scan of the head was unremarkable. As was the carotid Doppler. Please stop smoking as continued smoking increases your risk for stroke. Monitor blood pressures at home 3 times daily, write down values to bring to appointment. Stop meloxicam as it may increase your risk of stroke. Consider again regarding CPAP for obstructive sleep apnea as sleep apnea can also increase your risk of stroke. You are continued on phosphorus supplement. Include magnesium supplement 250 mg or more a day, higher supplements may lead to softer looser stool, monitor for magnesium been taking could be limited by diarrhea. Have your primary doctor follow-up your phosphorus and magnesium levels. Follow-up with your primary doctor regarding difficulty hearing, arrangements for hearing aids. Discharge Attestations Time Spent in Discharge Care*: greater than 30 min Quality Metrics Clinical Quality Measures [ No reported AMI, CVA or VTE this stay] Coding Level of Care Code 72678 Diagnoses Hypercalcemia of malignancy E83.52 UTI (urinary tract infection) N39.0 Metastatic cancer C79.9 Infection due to trichomonas A59.9 Acute encephalopathy G93.40 Goals of care, counseling/discussion Z71.89
[2023-09-24 06:32] LABS: Lymphoma Profile (BBPL) See Report
[2023-09-24 06:59] LABS: Lymphoma Profile (BBPL) See Report
[2023-10-25 18:44] LABS: PTH Related Peptide (Protein) 9 pg/mL (11-20)
== END 2023-09-22 15:45 | disposition home or self-care (01) | DRG 640 ==
LOC: ER 13:34 → ER IP 13:43 → MEDSURG 14:22
PROVIDERS: Internal Medicine Pulmonary Disease; Admitting Provider Internal Medicine; Emergency Provider Internal Medicine; PCP Internal Medicine; Visit Provider Internal Medicine
PROC: BB4BZZZ Ultrasonography of Pleura (ICD-10-PCS; principal; 2023-09-20 12:00)
DX: E83.52 Hypercalcemia (principal); G93.41 Metabolic encephalopathy; J18.9 Pneumonia, unspecified organism; J96.11 Chronic respiratory failure with hypoxia; N39.0 Urinary tract infection, site not specified; G45.9 Transient cerebral ischemic attack, unspecified; T17.590A Other foreign object in bronchus causing asphyxiation, initial encounter; R91.8 Other nonspecific abnormal finding of lung field; K76.9 Liver disease, unspecified; N28.89 Other specified disorders of kidney and ureter; F17.210 Nicotine dependence, cigarettes, uncomplicated; E78.5 Hyperlipidemia, unspecified; E03.9 Hypothyroidism, unspecified; J43.2 Centrilobular emphysema; E83.42 Hypomagnesemia; E83.39 Other disorders of phosphorus metabolism; E66.01 Morbid (severe) obesity due to excess calories; I11.0 Hypertensive heart disease with heart failure; N18.9 Chronic kidney disease, unspecified; Z68.35 Body mass index [BMI] 35.0-35.9, adult; Z99.81 Dependence on supplemental oxygen; Z79.82 Long term (current) use of aspirin; Z86.16 Personal history of COVID-19; Z80.41 Family history of malignant neoplasm of ovary; Z82.49 Family history of ischemic heart disease and other diseases of the circulatory system; Z80.1 Family history of malignant neoplasm of trachea, bronchus and lung
CPT/HCPCS: 31623; 31645; 31653; 36415; 36416; 51702; 70450; 71045; 71260; 74176; 80048; 80053; 81001; 82542; 82962; 83735; 84100; 84443; 85025; 87070; 87077; 87086; 87176; 87186; 87205; 88112; 88184; 88185; 88305; 88342; 89050; 93005; 93880; 94640; 96372; 97116; 97161; 99285; J0630; J0744; J1100; J1644; J1940; J1956; J2405; J2704; J3475; J3489; J3490; J3535; J7030; J7626; Q3014; Q9967

== ENCOUNTER 2023-10-01 22:19 | Emergency (ER) | payer MEDICARE, MEDICAID, SELFPAY ==
[2023-10-01 22:20] VITALS: BP 111/71; PULSE 89; RESP 17; TEMP 36.7; O2SAT 91
--- NOTE | 2023-10-01 22:40 | ED_ITS ---
HPI - Nausea/Vomiting/Diarrhea 2 General: Chief complaint: Nausea/Vomiting/Diarrhea Stated complaint: vomit cancer pt Time Seen by Provider: 10/01/23 22:23 History of Present Illness: Patient presents to the ER with nausea and vomiting. This started this a.m. Patient does take her Zofran that she has at home with no relief. Patient is currently receiving chemotherapy her last treatment was Saturday. Patient has small cell carcinoma of the right lung, sees Dr. Connolly, had lab work yesterday. Review of Systems 2 General: Reports: 10 or more systems reviewed and unremarkable except in HPI and below PFSH ED 2 PFSH: Medical History Degenerative arthritis Degenerative joint disease (DJD) of lumbar spine COPD (chronic obstructive pulmonary disease) Small cell carcinoma of right lung COVID-19 Hyperlipidemia Hypothyroidism Surgical History History of bronchoscopy (09/20/23) Bronchoscopy/EBUS Status post lumbar laminectomy (12/11/21) Right L3/4 laminectomy with partial facetectomy and discectomy History of colonoscopy S/P cholecystectomy S/P hysterectomy Family History Sister , at age 62 Cancer LUNG Mother , AGE78 Diabetes Cancer Ovarian Father , at age 78 CAD (coronary artery disease) Heart attack Social History Smoking and tobacco/nicotine status: current every day tobacco/nicotine user (2 packs a day ) cigarettes Packs smoked per day: 2 Years cigarettes smoked: 47 [ Other cigarette details: Started at age 22] Quit status (tobacco/nicotine): considering quitting Second hand smoke exposure: Yes Alcohol intake: never Substance/Drug Use: never Lives independently: Yes Household members: family and children Housing: House Marital status: / service: No Current occupational status: disabled Pets and animals: Yes Do you think of yourself as: Straight/Heterosexual Current gender identity: Female Physical Exam 2 Const: COMMON NORMALS: no acute distress, average body habitus, patient oriented x3, no limitations, healthy appearing, alert and well nourished HENMT: COMMON NORMALS: normocephalic, atraumatic, external ears normal, Normal external nose present, moist oral mucous membranes and oropharynx normal; hearing grossly not normal bilaterally (Very hard of hearing) HEAD & SCALP: n ormocephalic and atraumatic NOSE: Normal external nose present EXTERNAL EAR: Yes external ears normal Neck/C-Spine: COMMON NORMALS: full ROM, no lymphadenopathy, supple, no meningeal signs, no JVD and Thyroid normal THYROID: Thyroid normal Chest: COMMONS NORMALS: normal inspection of the chest and normal palpation of entire chest wall Resp: COMMON NORMALS: normal respiratory effort, No retractions, No use of accessory muscles and clear to auscultation bilaterally AUSCULTATION: clear to auscultation bilaterally Cardio: COMMON NORMALS: no JVD, regular rate, regular rhythm, S1 normal heart sound present, S2 normal heart sound present, No gallops present (Cardio), No clicks present (Cardio), No murmurs present (Cardio) and No rub (Cardio) R ATE: regular rate RHYTHM: regular rhythm HEART SOUNDS: S1 normal heart sound present and S2 normal heart sound present GI: COMMON NORMALS: Normal to inspection, nondistended, normoactive bowel sounds present, Soft to palpation, non-tender, No hepatosplenomegaly present, no masses and no bruits PALPATION: Yes Soft to palpation and Yes No hepatosplenomegaly present Neuro: COMMON NORMALS: patient oriented x3 SENSORIUM/ORIENTATION: Yes alert MENINGEAL SIGNS: Yes no meningeal signs Course 2 Vital Signs: Vital signs: Vital Signs Temperature 98.1 F 10/01/23 22:20 Pulse Rate 91 10/02/23 00:46 Respiratory Rate 16 10/02/23 00:46 Blood Pressure 101/78 10/02/23 00:46 Pulse Oximetry 92 10/02/23 00:46 Oxygen Delivery Me thod Room Air 10/02/23 00:46 MDM - Nausea/Vomiting/Diarrhea Medical Decision Making Patient had lab work performed included CBC CMP magnesium 1.1, white count was low at 1.07 and platelets 32. Patient was given 10 mg Reglan and 1 L normal saline in the ER patient did not have any more nausea vomiting and felt better. Patient be discharged home to follow-up with her PCP and/or oncologist within next 7 days for further evaluation and treatment. Differential Diagnosis Unlikely traveler's diarrhea, food poisoning, gastroenteritis, clostridium difficile infection, drug-induced nausea and vomiting or dehydration Medical Records I reviewed the patient's medical records. Lab Data I reviewed the patient's lab results. 10/01/23 22:56 10/01/23 22:56 Laboratory Results WBC 1.07 10^3/uL (3.29-11.43) L 10/01/23 22:56 RBC 5.14 10^6/uL (3.85-5.65) 10/01/23 22:56 Hgb 13.60 g/dL (11.27-16.99) 10/01/23 22:56 Hct 41.8 % (36-47) 10/01/23 22:56 MCV 81.3 fl (85-98) L 10/01/23 22:56 MCH 26.5 pg (27-33) L 10/01/23 22:56 MCHC 32.5 g/dL (30-55) 10/01/23 22:56 RDW 14.6 % (12.1-15.1) 10/01/23 22:56 Plt Count 32 10^3/cmm (157-399) L 10/01/23 22:56 MPV 10.5 fL (7.4-10.4) H 10/01/23 22:56 Neut % (Auto) 7.4 % 10/01/23 22:56 Lymph % (Auto) 80.4 % 10/01/23 22:56 [place] % (Auto) 1.9 % 10/01/23 22:56 Eos % (Auto) 0.9 % 10/01/23 22:56 Baso % (Auto) 1.9 % 10/01/23 22:56 Neut # (Auto) 0.08 10^3/uL (1.8-7.7) L* 10/01/23 22:56 Lymph # (Auto) 0.9 10^3/uL (0.8-4.8) 10/01/23 22:56 [place] # (Auto) 0.0 10^3/uL (0.2-0.9) L 10/01/23 22:56 Eos # (Auto) 0.0 10^3/uL (0.0-0.8) 10/01/23 22:56 Baso # (Auto) 0.0 10^3/uL (0.0-0.1) 10/01/23 22:56 Nucleated RBC % (auto) 0 % 10/01/23 22:56 Nucleated RBCs # 0.0 /100WBC 10/01/23 22:56 Sodium 134 mmol/L (136-145) L 10/01/23 22:56 Potassium 4.0 mmol/L (3.5-5.1) 10/01/23 22:56 Chloride 96 mmol/L (98-107) L 10/01/23 22:56 Carbon Dioxide 24 mmol/L (22-29) 10/01/23 22:56 Anion Gap 18.0 (5-19) 10/01/23 22:56 BUN 29 mg/dL (8-23) H 10/01/23 22:56 Creatinine 1.0 mg/dL (0.5-0.9) H 10/01/23 22:56 GFR Calculation 55.3 mL/min (90-130) L 10/01/23 22:56 Glucose 137 mg/dL (65-115) H 10/01/23 22:56 Calculated Osmolality 286 mOsm/kg (285-295) 10/01/23 22:56 Calcium 9.0 mg/dL (8.5-10.5) 10/01/23 22:56 Magnesium 1.1 mg/dL (1.7-2.3) L 10/01/23 22:56 Total Bilirubin 0.4 mg/dL (0.15-1.2) 10/01/23 22:56 AST 25 U/L (0-32) 10/01/23 22:56 ALT 21 U/L (0-33) 10/01/23 22:56 Alkaline Phosphatase 522 U/L (35-105) H 10/01/23 22:56 Total Protein 6.2 g/dL (6.6-8.7) L 10/01/23 22:56 Albumin 2.8 g/dL (3.5-5.2) L 10/01/23 22:56 Globulin 3.4 g/dL (1.3-4.6) 10/01/23 22:56 All radiology interpretation(s) finalized by discharge Discharge Plan Discharge Patient Disposition: Home Clinical Impression: Thrombocytopenia Nausea & vomiting Qualifiers: Vomiting type: unspecified Qualified Code(s): R11.2 - Nausea with vomiting, unspecified Leukopenia Qualifiers: Leukopenia type: unspecified Qualified Code(s): D72.819 - Decreased white blood cell count, unspecified Condition: Stable Prescriptions: No Action budesonide-formoterol [Symbicort] 80-4.5 mcg/actuation HFA aerosol inhaler 2 puff inhalation BID albuterol sulfate [ProAir HFA] 90 mcg/actuation HFA aerosol inhaler 2 puff INHALATION Q6H PRN (Reason: sob) levothyroxine 50 mcg tablet 50 mcg PO DAILY Galzin 50 mg (zinc) capsule 50 mg PO BID duloxetine 60 mg capsule,delayed release(DR/EC) 60 mg PO DAILY (DME) wheelchair See Rx Instructions .Route .MEDSUPPLY Qty: 1 0RF Rx Instructions: As directed omeprazole 20 mg capsule,delayed release(DR/EC) 20 mg PO DAILY Qty: 30 3RF ondansetron HCl 4 mg tablet 4 mg PO Q4H PRN (Reason: nausea and vomiting) Qty: 30 3RF furosemide 20 mg tablet 20 mg PO DAILY Qty: 30 2RF oxycodone 10 mg tablet 10 mg PO QID PRN (Reason: pain) 30 Days Qty: 120 0RF cyclobenzaprine 10 mg tablet 10 mg PO Q8H PRN (Reason: Muscle Pain) Inderal LA 60 mg capsule,extended release 24 hr 60 mg PO DAILY gabapentin 400 mg capsule 400 mg PO TID aspirin 81 mg Tablet,Delayed Release (Dr/Ec) 81 mg PO DAILY nicotine 21 mg/24 hr Patch 24 Hour 1 patch transdermal Q24H Qty: 90 1RF nicotine (polacrilex) 4 mg Lozenge 4 mg mucous membrane Q4H PRN (Reason: Nicotine Cravings) Qty: 90 2RF Phospha 250 Neutral 250 mg Tablet 1 tab PO BID Qty: 8 0RF polyethylene glycol 3350 17 gram Powder In Packet 17 g PO DAILY Qty: 30 0RF ipratropium-albuterol 0.5 mg-3 mg(2.5 mg base)/3 mL solution for nebulization 3 ml inhalation Q6H PRN (Reason: shortness of breath or wheezing) Qty: 180 0RF metronidazole 500 mg tablet 500 mg PO TID Qty: 9 0RF rosuvastatin 10 mg tablet 20 mg PO DAILY Qty: 90 0RF olanzapine 5 mg tablet 5 mg PO QPM Qty: 30 3RF Rx Instructions: Take for 5 days post chemo. Compazine 10 mg tablet 10 mg PO Q4H PRN (Reason: Mild Nausea) Qty: 30 3RF lorazepam 1 mg tablet 0.5 - 1 mg PO Q6H PRN (Reason: Severe Nausea) Qty: 30 3RF tiotropium bromide [Spiriva with HandiHaler] 18 mcg capsule, w/inhalation device 18 mcg INHALATION DAILY Discharge Orders: Discharge ED (Routine); Ordered 10/02/23 Ordered By: Bennie Patrick Referrals: Faby Kumar MD [Primary Care Provider] - 1 week Patient Instructions: Acute Nausea and Vomiting (ED), Thrombocytopenia Activity Restrictions/Additional Instructions: Lab work in ER today showed your white blood cell count and your platelet count was low. This is consistent with previous lab work. Please follow-up with your family practice physician and oncologist for further evaluation and testing of this. As this may be due to your chemotherapy and may need treated in the future. Coding Level of Care Code ED Pre Press Manager for Monik Lopez
[2023-10-01] MEDS: metoclopramide 5 mg/mL SDV 2 mL 10 MG IVP (22:43)
[2023-10-01] MEDS: sodium chloride 0.9% 1,000 ML 999 ML IV (22:43)
[2023-10-01 23:12] LABS: Alanine Aminotransferase 21 U/L (0-33); Albumin Level 2.8 g/dL (3.5-5.2); Alkaline Phosphatase 522 U/L (35-105); Blood Urea Nitrogen 29 mg/dL (8-23); Carbon Dioxide 24 mmol/L (22-29); Chloride 96 mmol/L (98-107); Globulin 3.4 g/dL (1.3-4.6); Glomerular Filtration Rate 55.3 mL/min (90-130); Glucose 137 mg/dL (65-115); Magnesium 1.1 mg/dL (1.7-2.3); Osmolality Calculated 286 mOsm/kg (285-295); Sodium 134 mmol/L (136-145); Total Bilirubin 0.4 mg/dL (0.15-1.2); Total Protein 6.2 g/dL (6.6-8.7)
[2023-10-01 23:14] LABS: Aspartate Amino Transferase 25 U/L (0-32)
[2023-10-01 23:25] LABS: Basophils % 1.9 %; Eosinophils % 0.9 %; Hematocrit 41.8 % (36-47); Lymphocytes # 0.9 10^3/uL (0.8-4.8); Lymphocytes % 80.4 %; Mean Corpuscular HGB Conc 32.5 g/dL (30-55); Mean Corpuscular Hemoglobin 26.5 pg (27-33); Mean Corpuscular Volume 81.3 fl (85-98); Mean Platelet Volume 10.5 fL (7.4-10.4); Monocytes % 1.9 %; Neutrophils % 7.4 %; Nucleated Red Blood Cells % 0 %; Platelet Count 32 10^3/cmm (157-399); Red Blood Count 5.14 10^6/uL (3.85-5.65); Red Cell Distribution Width 14.6 % (12.1-15.1); Slide Review Slide Review Perform; White Blood Count 1.07 10^3/uL (3.29-11.43)
[2023-10-01 23:27] LABS: Neutrophils # 0.08 10^3/uL (1.8-7.7)
[2023-10-01] MEDS: magnesium sulfate premix 2 GM/50 ML PIGGYBACK IV (23:35)
[2023-10-02 00:46] VITALS: BP 101/78; PULSE 91; RESP 16; O2SAT 92
[2023-10-02] MEDS: ondansetron 2 mg/ML SDV 2 mL 4 MG IVP (01:18)
== END 2023-10-02 01:19 | disposition home or self-care (01) ==
PROVIDERS: Emergency Provider Emergency Medicine; PCP Internal Medicine
DX: R11.2 Nausea with vomiting, unspecified (principal); D69.6 Thrombocytopenia, unspecified; D72.819 Decreased white blood cell count, unspecified; Z79.82 Long term (current) use of aspirin; F17.210 Nicotine dependence, cigarettes, uncomplicated; J44.9 Chronic obstructive pulmonary disease, unspecified; E78.5 Hyperlipidemia, unspecified
CPT/HCPCS: 36415; 80053; 83735; 85025; 96365; 96375; 99284; J2405; J2765; J3475; J7030

== ENCOUNTER 2023-10-02 09:00 | Oncology outpatient (recurring) (ONCR) | payer MEDICARE, MEDICAID, SELFPAY ==
[2023-09-25 12:10] LABS: Hematocrit 35.2 % (36-47); Mean Corpuscular HGB Conc 33.2 g/dL (30-55); Mean Corpuscular Hemoglobin 27.1 pg (27-33); Mean Corpuscular Volume 81.7 fl (85-98); Mean Platelet Volume 9.9 fL (7.4-10.4); Platelet Count 155 10^3/cmm (157-399); Red Blood Count 4.31 10^6/uL (3.85-5.65); Red Cell Distribution Width 14.7 % (12.1-15.1); White Blood Count 13.13 10^3/uL (3.29-11.43)
[2023-09-25 12:37] LABS: Alanine Aminotransferase 56 U/L (0-33); Albumin Level 3.2 g/dL (3.5-5.2); Alkaline Phosphatase 918 U/L (35-105); Anion Gap 16.4 (5-19); Aspartate Amino Transferase 101 U/L (0-32); Blood Urea Nitrogen 20 mg/dL (8-23); Calcium 10.1 mg/dL (8.5-10.5); Carbon Dioxide 23 mmol/L (22-29); Chloride 98 mmol/L (98-107); Globulin 3.2 g/dL (1.3-4.6); Glomerular Filtration Rate 71.5 mL/min (90-130); Glucose 103 mg/dL (65-115); Osmolality Calculated 279 mOsm/kg (285-295); Potassium 4.4 mmol/L (3.5-5.1); Sodium 133 mmol/L (136-145); Thyroid Stimulating Hormone 6.04 uIU/mL (0.27-4.20); Total Bilirubin 0.6 mg/dL (0.15-1.2); Total Protein 6.4 g/dL (6.6-8.7)
[2023-09-25 12:39] LABS: Slide Review Slide Review Perform
[2023-09-25 12:40] LABS: Total Cells Counted 100 (0-100)
[2023-09-25 12:44] LABS: Absolute Segmented Neutrophil 7.7 10/cmm (1.6-7.1); Band Neutrophils Absolute 0.3 10^3/cmm (0.0-1.2); Segmented Neutrophils 59 %
[2023-09-25 12:45] LABS: Absolute Eosinophils 0.4 10^3/cmm (0.0-0.7); Eosinophils 3 %; Lymphocytes 25 %; Lymphocytes Absolute 3.8 10^3/cmm (1.2-3.4); Monocytes Absolute 0.4 10^3/cmm (0.1-0.6); Platelet Estimate Normal (Normal)
[2023-09-25] MEDS: HYDROmorphone 1 mg/mL INJ 1 mL 2 MG IVP (13:26)
[2023-09-25] MEDS: sodium chloride 0.9% 250 ML 75 ML IV (13:26)
[2023-09-25] MEDS: diphenhydrAMINE 50 mg/mL SDV 1mL 25 MG IVP (13:30)
[2023-09-25] MEDS: famotidine 20 mg/2 mL INJ IVP (13:33)
[2023-09-25] MEDS: ondansetron 2 mg/ML SDV 2 mL 8 MG IVP (13:37)
[2023-09-25] MEDS: OLANZapine 5 mg TABLET PO (13:41)
[2023-09-25] MEDS: fosaprepitant 150 MG in sodium chloride 0.9% 150 ML 300 MG IV (14:23)
[2023-09-25] MEDS: etoposide 205 MG in sodium chloride 0.9%(non-DEHP) 500 ML 510.25 MG IV (14:56)
[2023-09-25 17:12] VITALS: BP 108/69; PULSE 80; TEMP 36.8; O2SAT 89
[2023-09-26 10:39] VITALS: BP 94/62; PULSE 71; TEMP 36.5; O2SAT 87
[2023-09-26] MEDS: sodium chloride 0.9% 250 ML 75 ML IV (11:18)
[2023-09-26] MEDS: ondansetron 2 mg/ML SDV 2 mL 8 MG IVP (11:19)
[2023-09-26] MEDS: etoposide 205 MG in sodium chloride 0.9%(non-DEHP) 500 ML 510.25 MG IV (11:47)
[2023-09-26 12:58] VITALS: BP 110/69; PULSE 65; TEMP 36.5; O2SAT 91
[2023-09-27] MEDS: sodium chloride 0.9% 250 ML 75 ML IV (10:12)
[2023-09-27] MEDS: palonosetron 0.25 mg/5 mL SDV IVP (10:14)
[2023-09-27] MEDS: etoposide 205 MG in sodium chloride 0.9%(non-DEHP) 500 ML 510.25 MG IV (10:42)
[2023-09-27 12:29] VITALS: BP 99/65; PULSE 75; TEMP 36.2; O2SAT 94
[2023-09-30 12:27] LABS: Basophils # 0.1 10^3/uL (0.0-0.1); Basophils % 2.1 %; Eosinophils % 0.8 %; Lymphocytes # 0.9 10^3/uL (0.8-4.8); Lymphocytes % 39.8 %; Mean Corpuscular HGB Conc 32.2 g/dL (30-55); Mean Corpuscular Hemoglobin 26.7 pg (27-33); Mean Corpuscular Volume 82.9 fl (85-98); Mean Platelet Volume 10.2 fL (7.4-10.4); Monocytes % 1.3 %; Neutrophils # 1.22 10^3/uL (1.8-7.7); Neutrophils % 51.8 %; Nucleated Red Blood Cells % 0 %; Platelet Count 62 10^3/cmm (157-399); Red Blood Count 3.86 10^6/uL (3.85-5.65); Red Cell Distribution Width 15.3 % (12.1-15.1); White Blood Count 2.36 10^3/uL (3.29-11.43)
[2023-09-30 12:43] LABS: Alanine Aminotransferase 27 U/L (0-33); Albumin Level 2.8 g/dL (3.5-5.2); Alkaline Phosphatase 611 U/L (35-105); Anion Gap 15.8 (5-19); Aspartate Amino Transferase 38 U/L (0-32); Blood Urea Nitrogen 29 mg/dL (8-23); Carbon Dioxide 25 mmol/L (22-29); Chloride 100 mmol/L (98-107); Globulin 3.1 g/dL (1.3-4.6); Glomerular Filtration Rate 55.3 mL/min (90-130); Glucose 86 mg/dL (65-115); Osmolality Calculated 289 mOsm/kg (285-295); Potassium 3.8 mmol/L (3.5-5.1); Sodium 137 mmol/L (136-145); Total Bilirubin 0.3 mg/dL (0.15-1.2); Total Protein 5.9 g/dL (6.6-8.7)
[2023-09-30 12:44] LABS: Creatinine Clr Calc Pharmacy 64.4375
== END 2023-10-02 23:59 | disposition home or self-care (01) ==
PROVIDERS: PCP Internal Medicine; Visit Provider Internal Medicine Medical Oncology
DX: Z53.9 Procedure and treatment not carried out, unspecified reason (principal)
CPT/HCPCS: 99215; 36415; 80053; 84443; 85007; 85025; 96367; 96375; 96413; 96417; J1100; J1170; J1200; J1453; J2405; J2469; J3490; J7030; J7040; J7050; J9045; J9181

== ENCOUNTER 2023-10-02 09:11 | Inpatient (IN) | payer MEDICARE, MEDICAID, SELFPAY ==
[2023-10-02] VITALS (32 sets, daily range): BP systolic 77–171; BP diastolic 45–110; PULSE 92–113; RESP 11–24; TEMP 35.7–37.2; O2SAT 95–100; BMI 34.8; BMI 36.0
--- NOTE | 2023-10-02 09:23 | XR_ITS ---
WS: [id number] Portable AP semiupright chest, 10/02/2023 Clinical Data: dyspnea Comparison: Portable chest, 09/22/2023 Findings: The right hilar mass remains unchanged. The lung peripheries show no definite masses or nod ules. There are no effusions. The pulmonary vascularity is not increased. The heart is normal. Impression: No change in right hilar mass.
--- NOTE | 2023-10-02 09:29 | ECG_ITS ---
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 Measurements Intervals [place] Rate: 110 P: 66 VT: 125 QRS: 155 QRSD: 78 T: 74 QT: 299 QTc: 406 Interpretive Statements SINUS TACHYCARDIA PATTERN CONSISTENT WITH PULMONARY DISEASE POSSIBLE RIGHT VENTRICULAR HYPERTROPHY [SOME/ALL OF: PROMINENT R IN V1, LATE TRANSITION, RAD, BETSY, SSS] MODERATE T-WAVE ABNORMALITY, CONSIDER ANTERIOR ISCHEMIA [-0.1+ mV T-WAVE IN V3/V4] Compared to ECG 09/19/2023 11:09:39 Possible ischemia now present T-wave abnormality still present Electronically Signed On 10-02-2023 18:31:11 WHEEL CLEANER by Fred Jalloh M.D. [id number]
[2023-10-02 09:55] LABS: Basophils % 1.3 %; Hematocrit 38.7 % (36-47); Lymphocytes # 0.7 10^3/uL (0.8-4.8); Lymphocytes % 87.3 %; Mean Corpuscular HGB Conc 32.8 g/dL (30-55); Mean Corpuscular Hemoglobin 26.8 pg (27-33); Mean Corpuscular Volume 81.6 fl (85-98); Monocytes % 1.3 %; Nucleated Red Blood Cells % 0 %; Red Blood Count 4.74 10^6/uL (3.85-5.65); Red Cell Distribution Width 14.9 % (12.1-15.1)
--- NOTE | 2023-10-02 09:58 | ECG_ITS ---
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 Measurements Intervals Lane Rate: 103 P: 66 MT: 135 QRS: 193 QRSD: 82 T: 78 QT: 345 QTc: 452 Interpretive Statements SINUS TACHYCARDIA INDETERMINATE AXIS LEFT POSTERIOR FASCICULAR BLOCK [QRS AXIS > 109, INFERIOR Q] MODERATE T-WAVE ABNORMALITY, CONSIDER ANTERIOR ISCHEMIA [-0.1+ mV T-WAVE IN V3/V4] Compared to ECG 10/02/2023 09:29:14 Indeterminate axis now present Left posterior fascicular block now present T-wave abnormality still present Possible ischemia still present Electronically Signed On 10-02-2023 18:30:51 INSTANT POWDER SUPERVISOR by Fred Jalloh M.D. [id number]
--- NOTE | 2023-10-02 10:00 | CT_ITS ---
WS: [id number] CT ABDOMEN AND PELVIS WITH CONTRAST HISTORY: abd pain, syncope and weakness. History of cancer. TECHNIQUE: Imaging performed of the abdomen and pelvis with IV contrast. Single phase imaging of the abdomen. Coronal and sagittal reformats are submitted. All CT scans at [facility] use at [address] one of these dose optimization techniques: automated exposure control; mA and/or kV adjustment per patient size (includes targeted exams where dose is matched to clinical indication); or iterative re construction. IV CONTRAST: Omnipaque 350; 100 mL IV. Oral contrast: No DLP: 992.33 mGy.cm COMPARISON: 09/19/2023 and 05/06/2019 Lower thorax: Known 8 mm pulmonary nodule inferior segment of the RIGHT upper lobe. Patient has known hilar and subcarinal lymph nodes which are incompletely visualized on today's exam. There is mild ci rcumferential edema within the distal esophagus in the central esophagus is slightly distended with f luid. Heart is normal size. Small pericardial effusion has decreased. No hiatal hernia. Liver/biliary system: Liver is enlarged. There are innumerable small low-attenuation masses scattered throughout the liver. These may've been present on the prior examinations but these were performed w ithout IV contrast. Prior cholecystectomy. Gallbladder: Prior cholecystectomy. Pancreas: Normal size pancreas and pancreatic duct. No adjacent inflammation. Spleen: Normal size with granulomata. Adrenal glands: Normal. Right kidney: Normal size kidney. No obstruction. Too small to characterize cysts and a small cyst me asuring 1.5 cm. Left kidney: Normal size. Too small to characterize hypodensities. 1.0 cm mass of increased attenuati on may be hemorrhagic cyst or neoplasm. There is an additional larger mass with a maximal diam of 2.1 cm in the superior posterior kidney. This is not been present on prior studies. No renal obstruction . Aorta: Mild atherosclerosis with no aneurysm. Lymphadenopathy: None. Free fluid: None. GI tract: Stomach is distended with fluid. Beginning in the proximal duodenum there is extensive subm ucosal edema with marked mucosal irregular enhancement continues throughout the small bowel. There is fluid distended small bowel. The more distal small bowel is a more normal appearance. No obstructive pattern. No pneumobilia. No free air. Proximal colon is fluid-filled. There is a change in caliber o f the distal splenic flexure. No mass is identified. Abdominal wall: Several small ventral abdominal wall hernias containing fat only. Pelvis: No adenopathy. Uterus is not identified. Bones: Degenerative disc disease at L3-4. No fractures. IMPRESSION: 1. New since 09/19/2023 is fluid distended small bowel loops with marked submucosal edema and mucosal enhancement. These changes involve the duodenum and the jejunum. Less involvement of the ileum. No o bstruction. Differential to consider pseudomembranous colitis, infectious colitis and less likely isc hemia. Typhlitis although but would have expected more involvement of the cecum. 2. Mild increased fluid in the RIGHT colon. 3. Innumerable low-attenuation nodules throughout the liver. Liver is also enlarged. Metastatic dise ase versus hepatic abscesses. 4. No free air. 5. Metastatic adenopathy involving the hilar regions. 6. Mild submucosal edema in the distal esophagus with central fluid distention. 7. Bilateral indeterminate renal masses. Several indeterminate masses in the LEFT kidney. Differenti al would include complex cysts, neoplasm and even abscess. Notified Mao Underwood DO at 10/02/2023 12:07 PM.
--- NOTE | 2023-10-02 10:01 | CT_ITS ---
WS: [id number] CT HEAD WITH AND WITHOUT CONTRAST HISTORY: AMS/lung CA TECHNIQUE: Noncontrast 3.0 mm axial images obtained from the vertex to the skull base. Additional nathaly ging performed at 3.0 mm axial images status post IV contrast. Bone and soft tissue windows are revie wed. All CT scans at [facility] use at least one of these dose optimization techniques: autom ated exposure control; mA and/or kV adjustment per patient size (includes targeted exams where dose i s matched to clinical indication); or iterative reconstruction. CONTRAST: Omnipaque 350; 100 mL IV. DLP: 1105.13 mGy.cm COMPARISON: 09/22/2023 noncontrast exam. No acute intracranial hemorrhage, edema or midline shift. No intracranial enhancing masses. There are a few changes with in the RIGHT cerebral suspicious for l eptomeningeal involvement. No significant atrophy. There is extensive small vessel ischemic disease. Dural venous sinuses are normally enhancing. Visualized [place] is unremarkable. Paranasal sinuses as visualized: Mild increased soft tissue in the RIGHT maxillary sinus. Mucous rete ntion cyst most likely. Mastoid air cells: Small amount of fluid in the mastoid air cells extending into the inner ear canal surrounding the ossicles. Calvarium and scalp: Intact. IMPRESSION: 1. No acute intracranial hemorrhage or edema. 2. Extensive small vessel ischemic disease is similar to the prior study. 3. No enhancing masses. 4. Although subtle there are some changes which raise the possibility of mild leptomeningeal enhance ment. This can be better evaluated by MRI with contrast.
--- NOTE | 2023-10-02 10:02 | ED_ITS ---
HPI - GI Bleed 2 General: Chief complaint: GI Bleed Stated complaint: weakness, rectal bleeding, sob Time Seen by Provider: 10/02/23 09:22 Source: patient Mode of arrival: ambulatory History of Present Illness: 68-year-old female who presents to the e mergency room with multiple large loose bowel movements at home melanic in nature no history of GI bleed she is not on any anticoagulation. She was recently diagnosed with lung cancer workup is incomplete although on initial workup it has been done to the this point there is concerned that it is quite extensive. Oncology notes reviewed. Pathology of lymph node biopsy showed metastatic small cell lung CA. complaint: melena Onset (ago): hour(s) Relieving factors: none Exacerbating factors: none Context: other Associated symptoms: Reports malaise, poor appetite and weakness; Denies abdominal pain, chills, easy bruising, epistaxis, fever(s), headache(s), nausea, other bleeding, rash, syncope or vomiting Review of Systems 2 Const: Reports: malaise; Denies: fever(s) or chills ENMT: Denies: epistaxis Card: Denies: syncope GI: Denies: abdominal pain, nausea or vomiting Skin/Breast: Denies: rash Neuro: Denies: headache(s) Maxwell/Lymph: Denies: easy bruising PFSH ED 2 PFSH: Medical History Degenerative arthritis Degenerative joint disease (DJD) of lumbar spine COPD (chronic obstructive pulmonary disease) Small cell carcinoma of right lung COVID-19 Hyperlipidemia Hypothyroidism Surgical History History of bronchoscopy (09/20/23) Bronchoscopy/EBUS Status post lumbar laminectomy (12/11/21) Right L3/4 laminectomy with partial facetectomy and discectomy History of colonoscopy S/P cholecystectomy S/P hysterectomy Family History Sister , at age 62 Cancer LUNG Mother , AGE78 Diabetes Cancer Ovarian Father , at age 78 CAD (coronary artery disease) Heart attack Social History Smoking and tobacco/nicotine status: current every day tobacco/nicotine user (2 packs a day ) cigarettes Packs smoked per day: 2 Years cigarettes smoked: 47 [ Other cigarette details: Started at age 22] Quit status (tobacco/nicotine): considering quitting Second hand smoke exposure: Yes Alcohol intake: never Substance/Drug Use: never Lives independently: Yes Household members: family and children Housing: House Marital status: / service: No Current occupational status: disabled Pets and animals: Yes Do you think of yourself as: Straight/Heterosexual Current gender identity: Female Course 2 Vital Signs: Vital signs: Vital Signs Temperature 98.1 F 10/02/23 09:20 Pulse Rate 103 H 10/02/23 13:40 Respiratory Rate 16 10/02/23 13:40 Blood Pressure 104/65 10/02/23 13:40 Pulse Oximetry 97 10/02/23 13:40 Oxygen Delivery Me thod Nasal Cannula 10/02/23 09:20 Oxygen Flow Rate 1.5 10/02/23 09:20 MDM - GI Bleed Medical Decision Making Labs and imaging reviewed no acute EKG changes. No significant findings on chest x-ray. Patient had hemodialysis will describe melanic stool prior to arrival. Her hemoglobin is stable but she is leukocytopenia as well as thrombocytopenic. Patient given IV Protonix and platelets have been ordered patient also given fluid bolus did require Levophed. Given her neutropenia with low-grade fever will admit for neutropenia. Discussed with Dr. Connolly he recommends Neupogen 480 mcg daily until white count improves. Repeat hemoglobin showed a half a point drop she had received significant fluids but that time as well however. She is on Levophed discussed with hospitalist and reviewed findings with of the CTs both Dr. Connolly and the hospitalist as well as discussing with radiology. Admit to ICU treat for sepsis Medical Records I reviewed the patient's medical records. Lab Data I reviewed the patient's lab results. 10/02/23 12:52 10/02/23 09:44 Laboratory Results WBC 0.92 10^3/uL (3.29-11.43) L* 10/02/23 12:52 RBC 4.61 10^6/uL (3.85-5.65) 10/02/23 12:52 Hgb 12.30 g/dL (11.27-16.99) 10/02/23 12:52 Hct 37.6 % (36-47) 10/02/23 12:52 MCV 81.6 fl (85-98) L 10/02/23 12:52 MCH 26.7 pg (27-33) L 10/02/23 12:52 MCHC 32.7 g/dL (30-55) 10/02/23 12:52 RDW 15.1 % (12.1-15.1) 10/02/23 12:52 Plt Count 32 10^3/cmm (157-399) L D 10/02/23 12:52 MPV 12.5 fL (7.4-10.4) H 10/02/23 12:52 Neut % (Auto) 6.4 % 10/02/23 12:52 Lymph % (Auto) 87.0 % 10/02/23 12:52 [place] % (Auto) 1.1 % 10/02/23 12:52 Eos % (Auto) 0.0 % 10/02/23 12:52 Baso % (Auto) 2.2 % 10/02/23 12:52 Neut # (Auto) 0.06 10^3/uL (1.8-7.7) L* 10/02/23 12:52 Lymph # (Auto) 0.8 10^3/uL (0.8-4.8) 10/02/23 12:52 [place] # (Auto) 0.0 10^3/uL (0.2-0.9) L 10/02/23 12:52 Eos # (Auto) 0.0 10^3/uL (0.0-0.8) 10/02/23 12:52 Baso # (Auto) 0.0 10^3/uL (0.0-0.1) 10/02/23 12:52 Nucleated RBC % (auto) 0 % 10/02/23 12:52 Nucleated RBCs # 0.0 /100WBC 10/02/23 12:52 PT 16.20 SECONDS (12.1-14.9) H 10/02/23 09:44 INR 1.26 (0.8-1.2) H 10/02/23 09:44 APTT 29.8 SECONDS (23.9-36.7) 10/02/23 09:44 Sodium 137 mmol/L (136-145) 10/02/23 09:44 Potassium 4.0 mmol/L (3.5-5.1) 10/02/23 09:44 Chloride 99 mmol/L (98-107) 10/02/23 09:44 Carbon Dioxide 20 mmol/L (22-29) L 10/02/23 09:44 Anion Gap 22.0 (5-19) H 10/02/23 09:44 BUN 40 mg/dL (8-23) H 10/02/23 09:44 Creatinine 2.0 mg/dL (0.5-0.9) H 10/02/23 09:44 GFR Calculation 24.9 mL/min (90-130) L 10/02/23 09:44 Glucose 197 mg/dL (65-115) H 10/02/23 09:44 Calculated Osmolality 299 mOsm/kg (285-295) H 10/02/23 09:44 Lactic Acid 4.9 mmol/L (0.5-2.2) H* 10/02/23 09:44 Lactic Acid (Sepsis) 3.6 mmol/L (0.5-2.2) H 10/02/23 12:52 Calcium 8.0 mg/dL (8.5-10.5) L 10/02/23 09:44 Total Bilirubin 0.4 mg/dL (0.15-1.2) 10/02/23 09:44 AST 18 U/L (0-32) 10/02/23 09:44 ALT 14 U/L (0-33) 10/02/23 09:44 Alkaline Phosphatase 372 U/L (35-105) H 10/02/23 09:44 Total Protein 5.1 g/dL (6.6-8.7) L 10/02/23 09:44 Albumin 2.5 g/dL (3.5-5.2) L 10/02/23 09:44 Globulin 2.6 g/dL (1.3-4.6) 10/02/23 09:44 Lipase 14 U/L (13-60) 10/02/23 09:44 Blood Type O Positive 10/02/23 10:32 Rho(D) Type Rh positive 10/02/23 10:32 Antibody Screen Negative 10/02/23 10:32 All radiology interpretation(s) finalized by discharge Critical Care Time 2 Critical Care Time: Critical Care Time: Yes Total Critical Care Time: 40 Attestation: The high probability of a clinically significant, sudden or life threatening deterioration of the patient's cardiovascular renal sepsis system(s) required my full and direct attention, intervention and personal management. The critical care time is as shown. This time is in addition to time spent performing any reported procedures but includes the following: [x] Data and vital sign review and interpretation [x] Patient assessment, examination and intervention [x] Documentation [x] Medication orders and management Discharge Plan Discharge Patient Disposition: Admitted As Inpatient Admit Provider: Gregg Baez Clinical Impression: Sepsis, Occult blood in stools, Altered mental status, Acute UTI (urinary tract infection), Metastatic cancer, Carcinoma of hilus of right lung, Thrombocytopenia, Leukopenia Condition: Stable Coding Level of Care Code ED Twx Operator for Monik Lopez
[2023-10-02 10:11] LABS: Alanine Aminotransferase 14 U/L (0-33); Albumin Level 2.5 g/dL (3.5-5.2); Alkaline Phosphatase 372 U/L (35-105); Aspartate Amino Transferase 18 U/L (0-32); Blood Urea Nitrogen 40 mg/dL (8-23); Carbon Dioxide 20 mmol/L (22-29); Chloride 99 mmol/L (98-107); Globulin 2.6 g/dL (1.3-4.6); Glomerular Filtration Rate 24.9 mL/min (90-130); Glucose 197 mg/dL (65-115); Osmolality Calculated 299 mOsm/kg (285-295); Sodium 137 mmol/L (136-145); Total Bilirubin 0.4 mg/dL (0.15-1.2); Total Protein 5.1 g/dL (6.6-8.7)
[2023-10-02] MEDS: pantoprazole 40 mg SDV 80 MG IVP (10:20)
[2023-10-02] MEDS: norepinephrine 4 MG/250 ML BAG (10:21)
[2023-10-02 10:26] LABS: INR 1.26 (0.8-1.2); Lipase 14 U/L (13-60)
[2023-10-02 10:27] LABS: Partial Thromboplastin Time 29.8 SECONDS (23.9-36.7)
[2023-10-02 10:37] LABS: Lactic Sepsis W/Reflex 4.9 mmol/L (0.5-2.2)
[2023-10-02 10:38] LABS: Neutrophils # 0.04 10^3/uL (1.8-7.7); Platelet Count 24 10^3/cmm (157-399); White Blood Count 0.79 10^3/uL (3.29-11.43)
[2023-10-02 10:43] LABS: Slide Review Slide Review Perform
[2023-10-02] MEDS: iohexol 350 mg/mL 500 mL Btl (per mL) IV ×2 (11:00→11:01)
[2023-10-02 11:47] LABS: Reflex Lactate Order REFLEX LACTIC ORDERD
[2023-10-02 13:02] LABS: Basophils % 2.2 %; Hematocrit 37.6 % (36-47); Lymphocytes # 0.8 10^3/uL (0.8-4.8); Mean Corpuscular HGB Conc 32.7 g/dL (30-55); Mean Corpuscular Hemoglobin 26.7 pg (27-33); Mean Corpuscular Volume 81.6 fl (85-98); Mean Platelet Volume 12.5 fL (7.4-10.4); Monocytes % 1.1 %; Neutrophils % 6.4 %; Nucleated Red Blood Cells % 0 %; Platelet Count 32 10^3/cmm (157-399); Red Blood Count 4.61 10^6/uL (3.85-5.65); Red Cell Distribution Width 15.1 % (12.1-15.1); White Blood Count 0.92 10^3/uL (3.29-11.43)
--- NOTE | 2023-10-02 13:12 | P.HP_ITS ---
Providers/Chief Complaint 2 Admitting Physician: Gregg Baez MD Primary Care Provider: Faby Kumar MD Chief Complaint: weakness, rectal bleeding, sob History of Present Illness Anson Cheney is a 68 year old female with history of small cell lung cancer which was diagnosed recently, she was evaluated last night in the ER however was sent home, today presenting with chief complaint of worsening of melanotic stools, abdominal discomfort. Patient has been confused lately as per the family, no coffee-ground emesis, blood pressure has been on the lower side as well, in the ER workup is showing sepsis, neutropenia, thrombocytopenia she is is having melanotic stools with low blood pressure, CT scan is showing hepatic mets, adrenal mets, leptomeningeal metastasis. High lactic acid. UTI. We have requested 2 units of platelets she is on Levophed, vasopressin octreotide, DNR/DNI in case of bradycardia limited gestation okay with ICU admission and a pacemaker, will rediscuss goals of care 1 more time with the patient and the family I did notify Dr. Connolly of leptomeningeal metastatic lesion who recommended radiotherapy after she gets discharged from the hospital. Review of Systems 2 General: Reports: ROS unobtainable due to medical condition Const: Denies: fever(s) Eyes: Denies: change in vision ENMT: Denies: throat pain Medications/Allergies Home Medications Medication Instructions Recorded Confirmed Last Taken Type albuterol sulfate 90 mcg/actuation 2 puff inhalation Q6H PRN sob 02/04/20 10/02/23 Unknown History aerosol inhaler (ProAir HFA) levothyroxine 50 mcg tablet 50 mcg PO DAILY 02/04/20 10/02/23 10/01/23 History budesonide-formoterol HFA 80 2 puff inhalation BID 12/26/20 10/02/23 10/01/23 History mcg-4.5 mcg/actuation aerosol inhaler (Symbicort) tiotropium bromide 18 mcg capsule 18 mcg inhalation DAILY 12/11/21 10/02/23 10/01/23 History with inhalation device (Spiriva with HandiHaler) zinc acetate 50 mg (zinc) capsule 50 mg PO BID 03/12/22 10/02/23 10/01/23 History (Galzin) duloxetine 60 mg capsule,delayed 60 mg PO DAILY 09/17/23 10/02/23 10/01/23 History release aspirin 81 mg tablet,delayed 81 mg PO DAILY 09/19/23 10/02/23 10/01/23 History release gabapentin 400 mg capsule 400 mg PO TID 09/19/23 10/02/23 10/01/23 History ipratropium 0.5 mg-albuterol 3 mg 3 ml inhalation Q6H PRN shortness 09/22/23 10/02/23 Unknown Rx (2.5 mg base)/3 mL nebulization of breath or wheezing #180 mL soln rosuvastatin 10 mg tablet 20 mg (2 x 10 mg) PO DAILY #90 tabs 09/22/23 10/02/23 10/01/23 Rx wheelchair #1 ea 09/26/23 10/02/23 Unknown Rx omeprazole 20 mg capsule,delayed 20 mg PO DAILY #30 caps 09/27/23 10/02/23 10/01/23 Rx release furosemide 20 mg tablet 20 mg PO DAILY #30 tabs 09/30/23 10/02/23 10/01/23 Rx ondansetron HCl 4 mg tablet 4 mg PO Q4H PRN nausea and 09/30/23 10/02/23 Unknown Rx vomiting #30 tabs oxycodone 10 mg tablet 10 mg PO QID PRN pain 30 days #120 10/01/23 10/02/23 Unknown Rx tabs propranolol 60 mg capsule,24 60 mg PO DAILY 10/02/23 10/02/23 10/01/23 History hr,extended release Allergies Allergy/AdvReac Type Severity Reaction Status Date / Time Penicillins Allergy Unknown Unknown Verified 10/02/23 09:34 Sulfa (Sulfonamide Allergy Unknown Unknown Verified 10/02/23 09:34 Antibiotics) PFSH Acute 2 PFSH: Medical History (Updated 10/02/23 @ 15:35 by Gregg Baez MD) Complex renal cyst Microscopic hematuria Conductive hearing loss of both middle ears Impacted cerumen of both ears Bilateral tympanic membrane perforation Chronic otitis media of both ears Allergic rhinosinusitis Degenerative arthritis Degenerative joint disease (DJD) of lumbar spine COPD (chronic obstructive pulmonary disease) Small cell carcinoma of right lung COVID-19 Hyperlipidemia Hypothyroidism Surgical History History of bronchoscopy (09/20/23) Bronchoscopy/EBUS Status post lumbar laminectomy (12/11/21) Right L3/4 laminectomy with partial facetectomy and discectomy History of colonoscopy S/P cholecystectomy S/P hysterectomy Family History Sister , at age 62 Cancer LUNG Mother , AGE78 Diabetes Cancer Ovarian Father , at age 78 CAD (coronary artery disease) Heart attack Social History Smoking and tobacco/nicotine status: current every day tobacco/nicotine user (2 packs a day ) cigarettes Packs smoked per day: 2 Years cigarettes smoked: 47 [ Other cigarette details: Started at age 22] Quit status (tobacco/nicotine): considering quitting Second hand smoke exposure: Yes Alcohol intake: never Substance/Drug Use: never Lives independently: Yes Household members: family and children Housing: House Marital status: / service: No Current occupational status: disabled Pets and animals: Yes Do you think of yourself as: Straight/Heterosexual Current gender identity: Female Vitals/I&O/Wt Last Vital Signs Temp 98.1 F 10/02/23 09:20 Pulse 97 10/02/23 11:15 Resp 17 10/02/23 11:15 BP 99/45 10/02/23 11:15 Pulse Ox 98 10/02/23 11:15 O2 Del Method Nasal Cannula 10/02/23 09:20 O2 Flow Rate 1.5 10/02/23 09:20 10/01/23 10/02/23 10/02/23 22:59 06:59 14:59 Intake Total 0.267 / 0.267 Balance 0.267 / 0.267 Weight last 48 hrs Weight 97.976 kg Physical Exam 2 Narrative: Skin mottling Pale complexion GCS 15 Intermittent confusion Able to move her extremities Currently on 2 L nasal cannula Requiring vasopressin and Levophed IV fluids Abdomen distended, tenderness on deep palpation S1, S2 Tachycardia Data 10/02/23 12:52 10/02/23 09:44 A&P Assessment and plan (1) Goals of care, counseling/discussion: (2) Thrombocytopenia: (3) UTI (urinary tract infection): (4) Leukopenia: Qualifiers: Leukopenia type: unspecified Qualified Code(s): D72.819 - Decreased white blood cell count, unspecified (5) Occult blood in stools: (6) Carcinoma of hilus of right lung: (7) Metastatic cancer: (8) Sepsis: (9) Altered mental status: Qualifiers: Altered mental status type: transient alteration of awareness Qualified Code(s): R40.4 - Transient alteration of awareness (10) Acute encephalopathy: (11) Obstructive sleep apnea: (12) Small cell lung cancer: (13) Metabolic brain disease: (14) Metastatic cancer to liver: (15) Septic shock: Plan Septic shock Currently on vasopressin, Levophed stress dose steroids, octreotide Melanotic stool Will give her 1 unit PRBC and 2 unit of platelets Patient will give Neupogen as well Received septic bolus in the ER Sources colitis She also has UTI Criteria met with leukopenia, high lactic acid, endorgan damage, tachypnea tachycardia, Small cell lung cancer Currently requiring 2 L Mets to liver, adrenal gland, leptomeningeal Fluctuating mentation On previous admission intermittent facial droop was noticed as well Colitis Start broad-spectrum antibiotics Typhlitis CELESTE liver related septic shock Place Salvador catheter Monitor H&H every 6 hours DO NOT RESUSCITATE DO NOT INTUBATE however in case of ICU admissions family is okay with medical therapy and would only allow for pacemaker if needed Guarded prognosis Will need radiotherapy when she gets discharged as per Dr. Connolly N.p.o. Review of records revealed that patient was recently discharged in the hospital she was having intermittent fluctuation of facial droop mentation, Dr. Carroll has notified the family already for small cell lung cancer they have seen Dr. Connolly outpatient Patient notable for history most of the information taken from the family and the collaterals and previous records Patient evaluated multiple times Goals of care discussed with the patient and the family, patient not able to make decision, Attestations 2 Medical Necessity Statement*: Admit to ICU Coding Level of Care Code Critical Care >/= 30 minutes Critical care time (in minutes): 60 The high probability of a clinically significant, sudden or life threatening deterioration, as referenced in this documentation, required my full and direct attention, intervention and personal management. The critical care time shown is in addition to time spent performing any reported separately billable procedures and includes the following: [x] Data and vital sign review and interpretation [x ] Patient assessment, examination and intervention [x] Medication orders and management [x] Patient/Family updates as able [x] Care Coordination and Documentation. Diagnoses Goals of care, counseling/discussion Z71.89 Thrombocytopenia D69.6 UTI (urinary tract infection) N39.0 Leukopenia D72.819 Leukopenia type: unspecified Occult blood in stools R19.5 Carcinoma of hilus of right lung C34.01 Metastatic cancer C79.9 Sepsis A41.9 Transient alteration of awareness R40.4 Altered mental status type: transient alteration of awareness Acute encephalopathy G93.40 Obstructive sleep apnea G47.33 Small cell lung cancer C34.90 Metabolic brain disease G93.41 Metastatic cancer to liver C78.7 Septic shock A41.9; R65.21
[2023-10-02 13:13] LABS: Lactic Acid level (Lactate) 3.6 mmol/L (0.5-2.2)
[2023-10-02] MEDS: cefepime 1,000 MG in sodium chloride 0.9% (plus) 50 ML 100 MG IV (13:13)
[2023-10-02 13:23] LABS: Neutrophils # 0.06 10^3/uL (1.8-7.7)
[2023-10-02 13:25] LABS: Slide Review Slide Review Perform
[2023-10-02 14:10] LABS: Add Urine Culture? No; Add Urine Microscopic? YES; Bacteria Urine TRACE /hpf; Bilirubin Urine 1+ (Negative); Blood Urine 2+ (Negative); Glucose Urine UA Norm (Normal); Ketones Urine 1+ (Negative); Leukocyte Esterase Urine Trace (Negative); Mucus Urine 1+ /hpf; Nitrate Urine Negative (Negative); Protein Urine 1+ (Negative); RBC Urine 0-4 /hpf (0-2); Urine Appearance Cloudy (CLEAR); Urine Color Yellow (Yellow); Urobilinogen Urine Norm (Negative); WBC Urine 25-40 /hpf (0-5); pH Urine 5 (5-7)
[2023-10-02] MEDS: sodium chloride 0.9% 1,000 ML 75 ML IV (14:21)
[2023-10-02] MEDS: cefepime 2,000 MG in sodium chloride 0.9% (plus) 50 ML 100 MG IV (14:22)
[2023-10-02] MEDS: filgrastim-sndz 480 mcg/0.8 mL Syringe SUBCUT (14:22)
[2023-10-02] MEDS: metroNIDAZOLE IV 500 MG/100 ML PREMIX 100 MG IV ×2 (14:22→21:48)
[2023-10-02] MEDS: albumin 12.5 GM/250 ML VIAL IV (14:29)
[2023-10-02] MEDS: ondansetron 2 mg/ML SDV 2 mL 4 MG IVP ×2 (14:47→21:50)
[2023-10-02] MEDS: vasopressin 40 UNIT/100 ML PREMIX IV (14:55)
[2023-10-02] MEDS: calcium gluconate 0.1 gm/mL 10% SDV 10mL 1 GM IVP (15:04)
[2023-10-02] MEDS: norepinephrine 4 MG/250 ML BAG 60 MG IV (15:05)
--- NOTE | 2023-10-02 15:29 | XR_ITS ---
WS: [id number] Portable AP upright chest, 10/02/2023, 1549 hours Clinical Data: Picc line placement Comparison: Portable chest, 10/02/2023 0948 hours Findings: The left PICC line ends in the superior vena cava. No pneumothorax is seen. Impression: Satisfactory placement of left PICC line.
--- NOTE | 2023-10-02 15:41 | PC.NURSE ---
Addendum entered by Shakir Venegas RN 10/02/23 19:54: received patient form ER staff at 1415. Patient is oriented to person, place, time and situation, but is lethargic and becoming more so. BP: 105, unable to obtain BP from automatic BP cuff, manual pressure shows 78/60. SPO2: 97%. Levophed is runnign at 8mcg, titrating up per protocol. Upon arrival, the absorbent pad under patient was saturated with blood, linens changed, while turned patient back, nurse observed that a small trickle of tamara red blood was continuing to drain from the rectum. Original Note: received patient form ER staff at 1415. Patient is oriented to person, place, time and situation, but is lethargic and becoming more so. BP: 105, unable to obtain BP from automatic BP cuff, manual pressure shows 78/60. SPO2: 97%. Levophed is runnign at 8mcg, titrating up per protocol.
--- NOTE | 2023-10-02 15:45 | PC.NURSE ---
Triple lumen PICC placed to left brachial vein. Referred to vascular access nurse due to GI bleed with need for vasopressors and blood products. Family at bedside. Risks and benefits discussed and informed consent obtained from patient daughter, Julia, per patient request. Right arm assessed with no viable veins present. Left arm assessed with left brachial vein measuring 3.5 mm, straight, and apparent best choice for placement. Using sterile technique and MST, left brachial vein accessed x 1 stick. Mid-arm circumference measured 10 cm from left AC 30 cm. Trimmed cath 49 cm with 0 cm external length noted. CXR shows tip in SVC, in good position for use per radiologist. Line secured with stat-lock. Insertion site covered with Biopatch and TSM. Report given to bedside nurseShakir.
[2023-10-02 16:03] LABS: Hematocrit 33.1 % (36-47)
[2023-10-02] MEDS: hydrocortisone 100 mg/2 mL SDV IVP (17:26)
[2023-10-02] MEDS: octreotide 500 MCG in sodium chloride 0.9% (100 ml) 100 ML 10.1 MCG IV (17:28)
[2023-10-02] MEDS: linezolid premix 600 MG/300 ML PREMIX 300 MG IV (17:34)
[2023-10-02] MEDS: norepinephrine 4 MG/250 ML BAG 45 MG IV (18:15)
[2023-10-02] MEDS: pantoprazole 40 mg SDV IVP (18:39)
--- NOTE | 2023-10-02 19:56 | PC.NURSE ---
SHift summary. Shortly after arrival in ICU, 2 units of platelets were infused and a unit of blood was started. Patient had 3 bowel movements in the last 5 hours, totalling about 700 mL of tamara red blood. H&H is being monitored, blood and platelets received. Nurse alerted Dr Baez to continued blood loss.
[2023-10-02 22:19] LABS: Hematocrit 31.7 % (36-47)
--- NOTE | 2023-10-02 22:30 | PC.NURSE ---
Skin Assessment: Dr. Noriega notified via [email or web address] @[id number] of skin ulcer on L. breast. Picture sent via [email or web address]. No new orders at this time.
[2023-10-03] VITALS (22 sets, daily range): BP systolic 107–149; BP diastolic 73–84; PULSE 98–102; RESP 14–25; TEMP 36.1–36.5; O2SAT 88–97
[2023-10-03] MEDS: HYDROmorphone 1 mg/mL INJ 1 mL 0.4 MG IVP (00:32)
[2023-10-03] MEDS: sodium chloride 0.9% 1,000 ML 100 ML IV (00:37)
[2023-10-03] MEDS: octreotide 500 MCG in sodium chloride 0.9% (100 ml) 100 ML 10.1 MCG IV (02:53)
[2023-10-03] MEDS: hydrocortisone 100 mg/2 mL SDV IVP (02:55)
[2023-10-03] MEDS: cefepime 2,000 MG in sodium chloride 0.9% (plus) 50 ML 100 MG IV (03:00)
[2023-10-03] MEDS: linezolid premix 600 MG/300 ML PREMIX 300 MG IV (04:12)
[2023-10-03 05:00] LABS: Hematocrit 30.9 % (36-47); Lymphocytes # 0.5 10^3/uL (0.8-4.8); Lymphocytes % 90.2 %; Mean Corpuscular Hemoglobin 26.9 pg (27-33); Mean Corpuscular Volume 81.5 fl (85-98); Mean Platelet Volume 10.1 fL (7.4-10.4); Neutrophils % 7.8 %; Nucleated Red Blood Cells % 0 %; Platelet Count 45 10^3/cmm (157-399); Red Blood Count 3.79 10^6/uL (3.85-5.65); Red Cell Distribution Width 14.8 % (12.1-15.1)
[2023-10-03 05:25] LABS: Alanine Aminotransferase 10 U/L (0-33); Albumin Level 2.1 g/dL (3.5-5.2); Alkaline Phosphatase 172 U/L (35-105); Anion Gap 17.9 (5-19); Aspartate Amino Transferase 14 U/L (0-32); Blood Urea Nitrogen 51 mg/dL (8-23); Calcium 6.9 mg/dL (8.5-10.5); Carbon Dioxide 19 mmol/L (22-29); Chloride 104 mmol/L (98-107); Globulin 2.5 g/dL (1.3-4.6); Glomerular Filtration Rate 18.4 mL/min (90-130); Glucose 154 mg/dL (65-115); Magnesium 1.4 mg/dL (1.7-2.3); Osmolality Calculated 301 mOsm/kg (285-295); Potassium 3.9 mmol/L (3.5-5.1); Sodium 137 mmol/L (136-145); Total Bilirubin 0.4 mg/dL (0.15-1.2); Total Protein 4.6 g/dL (6.6-8.7)
[2023-10-03 05:26] LABS: Lactate (Lactic Acid level) 1.7 mmol/L (0.5-2.2)
[2023-10-03 05:28] LABS: Slide Review Slide Review Perform
[2023-10-03 05:29] LABS: Neutrophils # 0.04 10^3/uL (1.8-7.7); White Blood Count 0.51 10^3/uL (3.29-11.43)
[2023-10-03 05:39] LABS: C Reactive Protein 427.9 mg/L (0.0-4.9)
[2023-10-03] MEDS: metroNIDAZOLE IV 500 MG/100 ML PREMIX 100 MG IV (06:02)
[2023-10-03 06:46] LABS: Procalcitonin > 100.00 ng/mL (0-0.5)
[2023-10-03] MEDS: levothyroxine 50 mcg Tablet PO (09:31)
[2023-10-03] MEDS: pantoprazole 40 mg SDV IVP (09:31)
[2023-10-03] MEDS: FUROsemide 10 mg/mL SDV 4mL 40 MG IVP (09:31)
--- NOTE | 2023-10-03 10:11 | P.DS_ITS ---
Discharge Providers Date of Admission: 10/02/23 13:10 Date of Discharge: October 03, 2023 Attending Provider at Admission: Gregg Baez MD Attending Provider at Discharge: Gregg Baez MD Primary Care Provider: Faby Kumar MD Diagnoses at Discharge Discharge Diagnosis (1) Goals of care, counseling/discussion: Status: Acute (2) Thrombocytopenia: Status: Acute (3) UTI (urinary tract infection): Status: Acute (4) Leukopenia: Status: Acute Qualifiers: Leukopenia type: unspecified Qualified Code(s): D72.819 - Decreased white blood cell count, unspecified (5) Occult blood in stools: Status: Acute (6) Carcinoma of hilus of right lung: Status: Acute (7) Metastatic cancer: Status: Acute (8) Sepsis: Status: Acute (9) Altered mental status: Status: Acute Qualifiers: Altered mental status type: transient alteration of awareness Qualified Code(s): R40.4 - Transient alteration of awareness (10) Acute encephalopathy: Status: Acute (11) Obstructive sleep apnea: Status: Acute (12) Small cell lung cancer: Status: Acute (13) Metabolic brain disease: Status: Acute (14) Metastatic cancer to liver: Status: Acute (15) Septic shock: Status: Acute Reason for Visit Reason for Visit: weakness, rectal bleeding, sob Hospital Course Hospital Course 68-year-old female who was diagnosed with small cell lung cancer, she was admitted with sepsis, colitis, she was given blood transfusion, platelets along IV steroids she was put on octreotide Levophed and vasopressin for septic shock in the ICU, patient has leptomeningeal metastatic lesion along liver and adrenal gland mets, PICC line was placed, patient and family both decided to go home on hospice, we have arranged hospital bed, we will keep Salvador catheter will discontinue PICC line currently on 2 L, patient is stating that she has mild discomfort in her abdomen, she was kept n.p.o., I have asked family to use clear liquid diet. Hemoglobin at discharge was 10.2, she is still neutropenic, afebrile, creatinine 2.6. Patient is extremely fluid overloaded she was given Lasix IV before her discharge today. She also suffers with UTI. She received broad-spectrum antibiotics during hospitalization. Dr Connolly was notified. Physical Exam Narrative: Fluid overloaded GCS 15 Able to follow commands Hard of hearing Currently on 2 L Abdomen distended, tender lower quadrants Discharge Data Studies Completed and Pending Completed Studies During Hospitalization Category Date Time Status CT abdomen pelvis w con* [id number] Stat Cat Scan 10/02/23 10:[address] head wo/w con [id number] Stat Cat Scan 10/02/23 10:01 Completed XR chest 1V portable [id number] Stat Exams 10/02/23 09:23 Completed XR chest 1V portable [id number] Stat Exams 10/02/23 15:29 Completed Pending at discharge Category Date Time Status Blood Cultures ([facility]) Routine Lab 10/02/23 09:44 Received Blood Cultures ([facility]) Routine Lab 10/02/23 12:52 Received Complete Crossmatch Stat Lab 10/02/23 10:32 Results PRBC [Leukocyte Reduced RBC] Routine Lab 10/02/23 10:32 Results Platelets Leuko-Reduced Stat Lab 10/02/23 10:32 Results Platelets Leukoreduced Irradia Routine Lab 10/02/23 10:32 Results Type and Screen Stat Lab 10/02/23 10:32 Results Laboratory Results WBC 0.51 10^3/uL (3.29-11.43) L* 10/03/23 04:09 RBC 3.79 10^6/uL (3.85-5.65) L 10/03/23 04:09 Hgb 10.20 g/dL (11.27-16.99) L 10/03/23 04:09 Hct 30.9 % (36-47) L 10/03/23 04:09 MCV 81.5 fl (85-98) L 10/03/23 04:09 MCH 26.9 pg (27-33) L 10/03/23 04:09 MCHC 33.0 g/dL (30-55) 10/03/23 04:09 RDW 14.8 % (12.1-15.1) 10/03/23 04:09 Plt Count 45 10^3/cmm (157-399) L D 10/03/23 04:09 MPV 10.1 fL (7.4-10.4) 10/03/23 04:09 Neut % (Auto) 7.8 % 10/03/23 04:09 Lymph % (Auto) 90.2 % 10/03/23 04:09 [place] % (Auto) 2.0 % 10/03/23 04:09 Eos % (Auto) 0.0 % 10/03/23 04:09 Baso % (Auto) 0.0 % 10/03/23 04:09 Neut # (Auto) 0.04 10^3/uL (1.8-7.7) L* 10/03/23 04:09 Lymph # (Auto) 0.5 10^3/uL (0.8-4.8) L 10/03/23 04:09 [place] # (Auto) 0.0 10^3/uL (0.2-0.9) L 10/03/23 04:09 Eos # (Auto) 0.0 10^3/uL (0.0-0.8) 10/03/23 04:09 Baso # (Auto) 0.0 10^3/uL (0.0-0.1) 10/03/23 04:09 Nucleated RBC % (auto) 0 % 10/03/23 04:09 Nucleated RBCs # 0.0 /100WBC 10/03/23 04:09 PT 16.20 SECONDS (12.1-14.9) H 10/02/23 09:44 INR 1.26 (0.8-1.2) H 10/02/23 09:44 APTT 29.8 SECONDS (23.9-36.7) 10/02/23 09:44 Sodium 137 mmol/L (136-145) 10/03/23 04:09 Potassium 3.9 mmol/L (3.5-5.1) 10/03/23 04:09 Chloride 104 mmol/L (98-107) 10/03/23 04:09 Carbon Dioxide 19 mmol/L (22-29) L 10/03/23 04:09 Anion Gap 17.9 (5-19) 10/03/23 04:09 BUN 51 mg/dL (8-23) H 10/03/23 04:09 Creatinine 2.6 mg/dL (0.5-0.9) H 10/03/23 04:09 GFR Calculation 18.4 mL/min (90-130) L 10/03/23 04:09 Glucose 154 mg/dL (65-115) H 10/03/23 04:09 Calculated Osmolality 301 mOsm/kg (285-295) H 10/03/23 04:09 Lactic Acid 4.9 mmol/L (0.5-2.2) H* 10/02/23 09:44 Lactic Acid (Sepsis) 3.6 mmol/L (0.5-2.2) H 10/02/23 12:52 Lactate 1.7 mmol/L (0.5-2.2) 10/03/23 04:09 Calcium 6.9 mg/dL (8.5-10.5) L 10/03/23 04:09 Magnesium 1.4 mg/dL (1.7-2.3) L 10/03/23 04:09 Total Bilirubin 0.4 mg/dL (0.15-1.2) 10/03/23 04:09 AST 14 U/L (0-32) 10/03/23 04:09 ALT 10 U/L (0-33) 10/03/23 04:09 Alkaline Phosphatase 172 U/L (35-105) H 10/03/23 04:09 C-Reactive Protein 427.9 mg/L (0.0-4.9) H 10/03/23 04:09 Total Protein 4.6 g/dL (6.6-8.7) L 10/03/23 04:09 Albumin 2.1 g/dL (3.5-5.2) L 10/03/23 04:09 Globulin 2.5 g/dL (1.3-4.6) 10/03/23 04:09 Lipase 14 U/L (13-60) 10/02/23 09:44 Procalcitonin > 100.00 ng/mL (0-0.5) H 10/03/23 04:09 Urine Color Yellow (Yellow) 10/02/23 13:39 Urine Appearance Cloudy (CLEAR) A 10/02/23 13:39 Urine pH 5 (5-7) 10/02/23 13:39 Ur Specific [place] 1.020 (1.005-1.030) 10/02/23 13:39 Urine Protein 1+ (Negative) H 10/02/23 13:39 Urine Glucose (UA) Norm (Normal) 10/02/23 13:39 Urine Ketones 1+ (Negative) H 10/02/23 13:39 Urine Blood 2+ (Negative) H 10/02/23 13:39 Urine Nitrate Negative (Negative) 10/02/23 13:39 Urine Bilirubin 1+ (Negative) H 10/02/23 13:39 Urine Urobilinogen Norm mg/dL (Negative) 10/02/23 13:39 Ur Leukocyte Esterase Trace (Negative) H 10/02/23 13:39 Urine RBC 0-4 /hpf (0-2) H 10/02/23 13:39 Urine WBC 25-40 /hpf (0-5) H 10/02/23 13:39 Ur Squamous Epith Cells 10-15 /hpf (0-5) H 10/02/23 13:39 Amorphous Sediment Not Reportable 10/02/23 13:39 Urine Bacteria Trace /hpf (NONE) 10/02/23 13:39 Urine Mucus 1+ /hpf 10/02/23 13:39 Blood Type O Positive 10/02/23 10:32 Rho(D) Type Rh positive 10/02/23 10:32 Antibody Screen Negative 10/02/23 10:32 Crossmatch See Detail 10/02/23 10:32 Vitals Last Vital Signs Temp 97 F L 10/03/23 08:00 Pulse 98 10/03/23 09:03 Resp 18 10/03/23 09:03 BP 107/76 10/03/23 08:00 Pulse Ox 94 10/03/23 09:03 O2 Del Method Nasal Cannula 10/03/23 09:03 O2 Flow Rate 2 10/03/23 09:03 Discharge Plan Discharge Patient Disposition: Hospice - Home Condition: Stable Prescriptions: New cefpodoxime 200 mg tablet 200 mg PO BID Qty: 6 0RF Rx Instructions: must administer with a meal/food Continued budesonide-formoterol [Symbicort] 80-4.5 mcg/actuation HFA aerosol inhaler 2 puff inhalation BID albuterol sulfate [ProAir HFA] 90 mcg/actuation HFA aerosol inhaler 2 puff INHALATION Q6H PRN (Reason: sob) duloxetine 60 mg capsule,delayed release(DR/EC) 60 mg PO DAILY (DME) wheelchair See Rx Instructions .Route .MEDSUPPLY Qty: 1 0RF Rx Instructions: As directed omeprazole 20 mg capsule,delayed release(DR/EC) 20 mg PO DAILY Qty: 30 3RF ondansetron HCl 4 mg tablet 4 mg PO Q4H PRN (Reason: nausea and vomiting) Qty: 30 3RF furosemide 20 mg tablet 20 mg PO DAILY Qty: 30 2RF oxycodone 10 mg tablet 10 mg PO QID PRN (Reason: pain) 30 Days Qty: 120 0RF gabapentin 400 mg capsule 400 mg PO TID ipratropium-albuterol 0.5 mg-3 mg(2.5 mg base)/3 mL solution for nebulization 3 ml inhalation Q6H PRN (Reason: shortness of breath or wheezing) Qty: 180 0RF tiotropium bromide [Spiriva with HandiHaler] 18 mcg capsule, w/inhalation device 18 mcg INHALATION DAILY Discontinued levothyroxine 50 mcg tablet 50 mcg PO DAILY Galzin 50 mg (zinc) capsule 50 mg PO BID aspirin 81 mg Tablet,Delayed Release (Dr/Ec) 81 mg PO DAILY rosuvastatin 10 mg tablet 20 mg PO DAILY Qty: 90 0RF propranolol 60 mg capsule,extended release 24 hr 60 mg PO DAILY Discharge Orders: Discharge Order (Routine); Ordered 10/03/23 Ordered By: Gregg Baez Referrals: Faby Kumar MD [Primary Care Provider] - Discharge Attestations Time Spent in Discharge Care*: greater than 30 min Quality Metrics Clinical Quality Measures [ No reported AMI, CVA or VTE this stay] Coding Level of Care Code Acute Code for Chg Fwd Diagnoses Goals of care, counseling/discussion Z71.89 Thrombocytopenia D69.6 UTI (urinary tract infection) N39.0 Leukopenia D72.819 Leukopenia type: unspecified Occult blood in stools R19.5 Carcinoma of hilus of right lung C34.01 Metastatic cancer C79.9 Sepsis A41.9 Transient alteration of awareness R40.4 Altered mental status type: transient alteration of awareness Acute encephalopathy G93.40 Obstructive sleep apnea G47.33 Small cell lung cancer C34.90 Metabolic brain disease G93.41 Metastatic cancer to liver C78.7 Septic shock A41.9; R65.21
--- NOTE | 2023-10-03 11:58 | PC.NURSE ---
family in this am pt and family concur ready to take pt home on hosipce home care set up and picc line removed . to wheelchair and discharged to familly care
== END 2023-10-03 10:45 | disposition hospice, home (50) | DRG 871 ==
LOC: ER 12:25 → ICU 13:10 → MEDSURG 15:55 → ICU 16:00
PROVIDERS: Admitting Provider Internal Medicine; Emergency Provider Family Medicine; PCP Internal Medicine; Visit Provider Internal Medicine
DX: A41.9 Sepsis, unspecified organism (principal); G93.41 Metabolic encephalopathy; R65.21 Severe sepsis with septic shock; K92.1 Melena; C34.01 Malignant neoplasm of right main bronchus; C78.7 Secondary malignant neoplasm of liver and intrahepatic bile duct; C79.70 Secondary malignant neoplasm of unspecified adrenal gland; C79.31 Secondary malignant neoplasm of brain; E87.20 Acidosis, unspecified; N39.0 Urinary tract infection, site not specified; N17.9 Acute kidney failure, unspecified; D70.9 Neutropenia, unspecified; D69.6 Thrombocytopenia, unspecified; I95.9 Hypotension, unspecified; Z66 Do not resuscitate; H90.2 Conductive hearing loss, unspecified; J44.9 Chronic obstructive pulmonary disease, unspecified; E87.70 Fluid overload, unspecified; K52.9 Noninfective gastroenteritis and colitis, unspecified; G47.33 Obstructive sleep apnea (adult) (pediatric); F17.210 Nicotine dependence, cigarettes, uncomplicated; E03.9 Hypothyroidism, unspecified; E78.5 Hyperlipidemia, unspecified; Z79.82 Long term (current) use of aspirin; Z86.16 Personal history of COVID-19
CPT/HCPCS: 36415; 36430; 36573; 36592; 70470; 71045; 74177; 80048; 80053; 81001; 83605; 83690; 83735; 84145; 85014; 85018; 85025; 85610; 85730; 86140; 86850; 86900; 86920; 87040; 93005; 96365; 96372; 96375; 96376; 99284; 99285; C1751; C9113; J0612; J0692; J1170; J1720; J1940; J2020; J2354; J2405; J2598; J2765; J3475; J3490; J7030; P9016; P9045; P9055; Q5101; Q9967